=== PATIENT | male | born 1950 | race Caucasian/White ===

== ENCOUNTER 2019-06-19 10:01 | Outpatient (CLI) | payer OTHER, SELFPAY ==
[2019-06-19 10:38] LABS: HCT 45.6 % (40.0-50.0); HGB 15.6 g/dL (13.5-17.5); Mean Corp. HGB Concentration 34.2 g/dL (32.0-36.0); Mean Corpuscular Hemoglobin 31.8 pg (27.0-33.0); Mean Corpuscular Volume 93.1 fL (80-95); Mean Platelet Volume 10.6 fL (8.0-11.0); Platelet Count 226 x1000/uL (130-400); White Blood Cell Count 7.34 k/cumm (4.4-10.8)
[2019-06-19 11:47] LABS: ALT 40 U/L (12-78); AST 22 U/L (15-37); Albumin 3.7 g/dL (3.4-5.0); Alkaline Phosphatase 108 U/L (46-116); Anion Gap 9.4 mmol/L (3-11); BUN 10 mg/dL (7-18); Bilirubin, Total 0.5 mg/dL (0.2-1.0); CO2 26.6 mmol/L (21.0-32.0); CREATININE 0.77 mg/dL (0.70-1.30); Calcium 8.9 mg/dL (8.5-10.1); Calculated LDL 125 mg/dL; Chloride 101 mmol/L (98-107); Cholesterol 201 mg/dL (50-200); Glucose 114 mg/dL (70-100); HDL Cholesterol 66 mg/dL (40-60); Potassium 4.7 mmol/L (3.5-5.1); Sodium 137 mmol/L (136-145); Total Protein 6.6 g/dL (6.4-8.2); Triglyceride 54 mg/dL (30-150)
== END 2019-06-19 10:21 ==
PROVIDERS: PCP Nurse Practitioner; Visit Provider Nurse Practitioner
DX: I10 Essential (primary) hypertension (principal); E78.89 Other lipoprotein metabolism disorders
CPT/HCPCS: 36415; 80053; 80061; 83721; 85027

== ENCOUNTER 2020-11-03 12:22 | Outpatient (REF) | payer OTHER, SELFPAY ==
[2020-11-03 18:19] LABS: HCT 44.3 % (40.0-50.0); HGB 15.1 g/dL (13.5-17.5); MCH 32.3 pg (27.0-33.0); MCHC 34.1 % (32.0-36.0); MCV 94.9 fL (80-95); MPV 10.8 fL (8.0-11.0); Platelet Count 273 10^3/uL (130-400); RBC 4.67 10^6/uL (4.36-5.78); RDW 13.3 % (11.8-14.1); RDW-SD 46.7 fL; WBC 7.75 10^3/uL (4.4-10.8)
[2020-11-03 18:33] LABS: ALT 30 U/L (16-63); AST 16 U/L (15-37); Albumin 3.6 g/dL (3.4-5.0); Alkaline Phosphatase 85 U/L (46-116); Anion Gap 8.5 mmol/L (3-11); BUN 14 mg/dL (7-18); Bilirubin, Total 0.5 mg/dL (0.2-1.0); CO2 25.5 mmol/L (21.0-32.0); CREATININE 0.89 mg/dL (0.70-1.30); Calculated LDL 90 mg/dL (<100); Chloride 97 mmol/L (98-107); Cholesterol 179 mg/dL (<200); Glucose 115 mg/dL (74-106); HDL Cholesterol 80 mg/dL (40-60); Potassium 5.7 mmol/L (3.5-5.1); Sodium 131 mmol/L (136-145); Total Protein 6.5 g/dL (6.4-8.2); Triglyceride 45 mg/dL (<150)
[2020-11-03 18:42] LABS: Hemoglobin A1C 5.3 % (<5.7)
== END 2020-11-03 12:42 ==
LOC: LBN 12:22
PROVIDERS: PCP Nurse Practitioner; Visit Provider Nurse Practitioner
DX: R73.01 Impaired fasting glucose (principal); I10 Essential (primary) hypertension; F17.200 Nicotine dependence, unspecified, uncomplicated
CPT/HCPCS: 80053; 80061; 85027; 83036

== ENCOUNTER 2020-11-06 05:02 | Outpatient (CLI) | payer OTHER, SELFPAY ==
[2020-11-06 14:58] LABS: Sodium, Urine 38 mmol/L
[2020-11-06 15:02] LABS: Anion Gap 7.7 mmol/L (3-11); BUN 21 mg/dL (7-18); CO2 26.3 mmol/L (21.0-32.0); CREATININE 1.18 mg/dL (0.70-1.30); Calcium 9.1 mg/dL (8.5-10.1); Chloride 96 mmol/L (98-107); Glucose 101 mg/dL (74-106); Potassium 4.8 mmol/L (3.5-5.1); Sodium 130 mmol/L (136-145)
[2020-11-06 21:19] LABS: Osmolality, Urine 322 mOsm/kg (150-1,150)
== END 2020-11-06 05:22 ==
PROVIDERS: PCP Nurse Practitioner; Visit Provider Nurse Practitioner
DX: E87.1 Hypo-osmolality and hyponatremia (principal); E87.5 Hyperkalemia
CPT/HCPCS: 36415; 80048; 83935; 84300

== ENCOUNTER 2020-12-08 02:23 | Outpatient (CLI) | payer OTHER, SELFPAY ==
[2020-12-08 12:04] LABS: Anion Gap 8.6 mmol/L (3-11); BUN 17 mg/dL (7-18); CO2 25.4 mmol/L (21.0-32.0); CREATININE 0.94 mg/dL (0.70-1.30); Chloride 93 mmol/L (98-107); Glucose 100 mg/dL (74-106); Potassium 4.9 mmol/L (3.5-5.1); Sodium 127 mmol/L (136-145)
== END 2020-12-08 02:43 ==
PROVIDERS: PCP Nurse Practitioner; Visit Provider Nurse Practitioner
DX: E87.1 Hypo-osmolality and hyponatremia (principal)
CPT/HCPCS: 36415; 80048

== ENCOUNTER 2020-12-11 04:30 | Outpatient (CLI) | payer OTHER, SELFPAY ==
--- NOTE | 2020-12-11 12:40 | DI.RAD_ITS ---
EXAM: XR CHEST 2V PA LATERAL CLINICAL HISTORY: Hyponatremia,SMOKER, E87.1,F17.200. TECHNIQUE: 2D digital imaging was performed. COMPARISON: Chest x-ray earlier same date FINDINGS: Heart size is normal. The mediastinum is not widened. Lungs are clear. No infiltrates nor pleural effusions. IMPRESSION: No acute pulmonary findings. DATA REPOSITORY: RADIATION DOSE DELIVERED:
== END 2020-12-11 04:50 ==
PROVIDERS: PCP Nurse Practitioner; Visit Provider Nurse Practitioner
DX: F17.210 Nicotine dependence, cigarettes, uncomplicated (principal); E87.1 Hypo-osmolality and hyponatremia
CPT/HCPCS: 71046

== ENCOUNTER 2020-12-15 11:56 | Outpatient (REF) | payer OTHER, SELFPAY ==
[2020-12-15 14:38] LABS: Anion Gap 8.9 mmol/L (3-11); BUN 14 mg/dL (7-18); CO2 25.1 mmol/L (21.0-32.0); CREATININE 0.81 mg/dL (0.70-1.30); Calcium 9.1 mg/dL (8.5-10.1); Chloride 100 mmol/L (98-107); Glucose 111 mg/dL (74-106); Potassium 4.6 mmol/L (3.5-5.1); Sodium 134 mmol/L (136-145); TSH (W/Ref FT4) 0.86 uIU/mL (0.36-3.74)
== END 2020-12-15 12:16 ==
LOC: LBO 11:56
PROVIDERS: PCP Nurse Practitioner; Visit Provider Nurse Practitioner
DX: E87.1 Hypo-osmolality and hyponatremia (principal); I10 Essential (primary) hypertension
CPT/HCPCS: 80048; 82533; 84443

== ENCOUNTER 2020-12-30 10:48 | Outpatient (REF) | payer OTHER, SELFPAY ==
[2020-12-30 14:08] LABS: Anion Gap 7.8 mmol/L (3-11); BUN 20 mg/dL (7-18); CO2 24.2 mmol/L (21.0-32.0); CREATININE 0.8 mg/dL (0.70-1.30); Calcium 9.2 mg/dL (8.5-10.1); Chloride 101 mmol/L (98-107); Glucose 118 mg/dL (74-106); Potassium 5.8 mmol/L (3.5-5.1); Sodium 133 mmol/L (136-145)
== END 2020-12-30 10:49 | disposition home or self-care (01) ==
LOC: LBO 10:48
PROVIDERS: PCP Nurse Practitioner; Visit Provider Nurse Practitioner
DX: E87.1 Hypo-osmolality and hyponatremia (principal)
CPT/HCPCS: 80048

== ENCOUNTER 2021-01-04 11:16 | Day surgery (SDC) | payer OTHER, SELFPAY ==
[2021-01-04 11:30] VITALS: BP 153/74; PULSE 98; RESP 16; TEMP 36.6; O2SAT 100
[2021-01-04] MEDS: Tropicam./Phenyleph. (1/2.5%) 5 ML BTL OD ×3 (11:47→12:00)
[2021-01-04] MEDS: Tetracaine 0.5% 4 ML BTL OD (13:33)
[2021-01-04] MEDS: Balanced Salt Soln.-PLUS 500 ML BAG (13:34)
[2021-01-04] MEDS: Lidocaine 1% Pres-Free 5 ML VIAL (13:35)
[2021-01-04] MEDS: Duovisc Viscoelastic System EACH 1 EACH (13:35)
[2021-01-04] MEDS: Lidocaine 2% Jelly 6 ML SYR (13:36)
[2021-01-04] MEDS: Povidone-Iodine Ophth 30 ML BTL (13:38)
[2021-01-04] MEDS: Trypan Blue 0.06% 0.5 ML SYR (13:43)
--- NOTE | 2021-01-04 13:50 | W.PM.DSUDISC ---
Discharge Plan Disposition Patient Disposition: HOME Condition: Good Discharge Details Attending Provider: Fito Pond Primary Care Provider: Haleigh Aguirre Home Meds and New Rx's Prescriptions: No Action eye promis 1 tab PO DAILY RF: 0 acetaminophen 325 mg capsule 325 mg PO ONCE PRNRF: 0 amlodipine 10 mg tablet 10 mg PO DAILY Qty: 90 RF: 3 metoprolol succinate 25 mg tablet extended release 24 hr 25 mg PO DAILY Qty: 90 RF: 0 lisinopril 40 mg tablet 40 mg PO DAILY Qty: 90 RF: 3 Discharge Instructions Stand Alone Forms: Post-op Topical Cataract, Anneliese Mckeon (DSU) Discharge Orders Discharge Orders: Discharge Order (Routine); Ordered 01/04/21 Ordered By: Fito Pond DS: Diagnosis Discharge Diagnosis (1) Nuclear sclerotic cataract of right eye: Status: Resolved (2) Posterior subcapsular age-related cataract, right eye: Status: Resolved
--- NOTE | 2021-01-04 13:51 | ROE_ITS ---
Date of service: 01/04/21 Time of Service: 13:51 Operative Note Operative Note DATE OF PROCEDURE: 01/04/21 PRE-OP DIAGNOSIS: Dense nuclear/posterior subcapsular cataract, right eye Poorly dilating pupil, right eye Poor red reflex, right eye POST-OP DIAGNOSIS: same PROCEDURE: Cataract extraction using phacoemulsification with intraocular lens implant, right eye, with pupillary dilation using Malyugin Ring and capsular staining using Vision Blue SURGEON: Fito Pond ANESTHESIA: MAC (with sub-tenon's local infiltration) ESTIMATED BLOOD LOSS: 0 PATHOLOGY: none sent COMPLICATIONS: None Patient was transported to: same day Patient's condition: stable Implants: Darryl and Darryl / [employer] Tecnis [id number] Indications: Progressive decreased vision due to cataract, right eye Procedure Description: CATARACT SURGERY OPERATIVE REPORT PREOPERATIVE DIAGNOSIS: 1. Dense nuclear/posterior subcapsular cataract, right eye 2. Poorly dilating pupil, right eye 3. Poor red reflex, right eye POSTOPERATIVE DIAGNOSIS: Same OPERATION: 1. Cataract extraction using phacoemulsification with posterior chamber intraocular lens implant, right eye. 2. Pupillary dilation and iris stabilization using Malyugin Ring 3. Capsular staining with VIsion Blue IOL: IOL Purchasing Clerk/Model: Darryl & Darryl / MARTIR Tecnis [id number] IOL Power: + 19.0 diopters IOL Serial Number: [id number] Optic Diameter: 6.0mm Haptic/Overall Diameter: 13.0mm PHACO INFO: Tom [employer] Vision System with OZil and Active [employer]uidics Cumulative Dispersed Energy (CDE): 18.98 seconds SURGEON: Fito Pond MD, ODILIA ANESTHESIA: Monitored Anesthesia Care (MAC), with local sub-tenon's anesthetic infiltration COMPLICATIONS: None SPECIMENS: None INDICATIONS FOR PROCEDURE: The patient is a 70-year-old gentleman with history of diminished visual acuity in his right eye secondary to the development of significant nuclear and posterior subcapsular cataract. He significantly symptomatic that he desires cataract surgery and attempt to improve and maximize his vision. PROCEDURE: The correct surgical eye was identified and marked as the right eye and the pupil was dilated in the preoperative area using mydriatics and cycloplegics. The dilated pupil size was 4.5 mm. Oral sedation was administered in the form of an Imprimis MKO Melt (midazolam 3mg/ketamine 25mg/ondansetron 2mg). The patient was brought to the operating room where cardiopulmonary monitoring was instituted and surgical time-out was performed, confirming the correct operative eye and IOL power. Topical anesthesia was administered and ophthalmic povidone-iodine 5% was i nstilled into the conjunctival fornices. Lidocaine gel was applied to the cornea and the kimani-ocular area was prepped with Betadine 10% solution and draped in the usual sterile fashion for intraocular surgery, including an aperture drape. A Tegaderm transparent film dressing was cut in half and used to cover the lashes and lid margins. Care was taken to sequester the lashes and lid margins under the Tegaderm dressing. A lid speculum was placed between the lids of the operative eye and the Adán-Ricardo operating microscope was maneuvered into position. Nadeem scissors were then used to make a conjunctival buttonhole approximately 6mm posterior to the limbus in the inferonasal quadrant. Blunt dissection was carried out to expose bare sclera, and a blunt-tipped sub-tenon?s anesthesia c annula was introduced and passed posteriorly along the globe where non-preserved plain lidocaine was injected into posterior sub-Tenon?s space. A sideport knife was used to make a paracentesis port inferiortemporally. Intraocular phenylephrine/lidocaine was injected into the anterior chamber. Air was then injected into anterior chamber, followed by Vision Blue, which was painted over the anterior capsule and then irrigated out with BSS. The anterior chamber was then filled with viscoelastic. A 2.4mm keratome knife was used to create a half-thickness groove at the limbus and then to construct a three-plane near- clear corneal tunnel extending 2.0mm into clear cornea superiortemporally. A 7.0 mm Malyugin Ring was then inserted into the pupillary space and engaged with the Kuglen hook. A flap was raised on the anterior capsule and capsulorhexis forceps were used to complete a continuous curvilinear capsulorhexis of 5.5 mm. Balanced salt solution was then used to perform cortical cleaving hydrodissection and nuclear hydrodelineation until the lens could be freely rotated within the capsular bag. The lens nucleus was then disassembled and removed within the capsular bag and iris plane using phacoemulsification. Residual cortical material was removed using the 45-degree angled silicone I/A tip with 0.3mm port. The posterior capsule was carefully polished to remove as much residual lens epithelial cells as safely possible. The capsular bag was then inflated and the anterior chamber deepened with viscoelastic. The lens implant described above was inserted into the capsular bag using the [employer] Deaver Injector. A Kuglen hook was used to dial the IOL into position. The Malyugin Ring was removed in the reverse order of its insertion. Residual viscoelastic was then removed first from posterior to the IOL, then from the anterior chamber using the I/A handpiece. The lens implant was noted to center nicely within the capsular bag. The incisions were stromally hydrated, and the anterior chamber was reformed using BSS. Then 0.5cc of moxifloxacin 1.0mg/ml were injected into the capsular bag and anterior chamber. The incisions were checked with a Weck spear and found to be secure. Several drops of ophthalmic povidone-iodine 5% were then applied to the eye followed by two drops of Imprimis combination prednisoone/moxifloxacin/nepafenac solution. The drapes were removed and a clear plastic protective eye shield was placed over the eye. The patient was then returned to [facility] in stable condition.
[2021-01-04 14:17] VITALS: BP 135/73; PULSE 76; RESP 20; TEMP 36.6; O2SAT 98
== END 2021-01-04 14:20 | disposition home or self-care (01) ==
PROVIDERS: PCP Nurse Practitioner; Visit Provider Ophthalmology
PROC: (CPT 66982; principal; 2021-01-04 14:30)
DX: H25.11 Age-related nuclear cataract, right eye (principal); H25.041 Posterior subcapsular polar age-related cataract, right eye; H57.09 Other anomalies of pupillary function; H35.89 Other specified retinal disorders
CPT/HCPCS: 66982; V2632

== ENCOUNTER 2021-01-15 02:52 | Outpatient (CLI) | payer OTHER, SELFPAY ==
[2021-01-15 12:57] LABS: Potassium 5.7 mmol/L (3.5-5.1)
== END 2021-01-15 02:53 | disposition home or self-care (01) ==
LOC: LBO 02:52
PROVIDERS: PCP Nurse Practitioner; Visit Provider Nurse Practitioner
DX: E87.5 Hyperkalemia (principal)
CPT/HCPCS: 36415; 84132

== ENCOUNTER 2021-01-20 21:48 | Outpatient (REF) | payer OTHER, SELFPAY ==
[2021-01-20 16:12] LABS: Anion Gap 8.4 mmol/L (3-11); BUN 22 mg/dL (7-18); CO2 22.6 mmol/L (21.0-32.0); CREATININE 0.9 mg/dL (0.70-1.30); Chloride 97 mmol/L (98-107); Glucose 104 mg/dL (74-106); Potassium 5.3 mmol/L (3.5-5.1); Sodium 128 mmol/L (136-145)
[2021-01-20 21:59] LABS: PSA, Screening 6.6 ng/mL (0.0-4.5)
== END 2021-01-20 21:49 | disposition home or self-care (01) ==
LOC: NCHCN 21:48
PROVIDERS: PCP Nurse Practitioner; Visit Provider Nurse Practitioner
DX: E87.1 Hypo-osmolality and hyponatremia (principal); E87.5 Hyperkalemia; R79.9 Abnormal finding of blood chemistry, unspecified; Z12.5 Encounter for screening for malignant neoplasm of prostate
CPT/HCPCS: 80048; 84153

== ENCOUNTER 2021-04-20 11:48 | Outpatient (REF) | payer OTHER, SELFPAY ==
[2021-04-20 16:08] LABS: Hemoglobin A1C 5.2 % (<5.7)
[2021-04-20 16:12] LABS: ALT 33 U/L (16-63); AST 20 U/L (15-37); Albumin 3.7 g/dL (3.4-5.0); Alkaline Phosphatase 89 U/L (46-116); Anion Gap 9.8 mmol/L (3-11); BUN 13 mg/dL (7-18); Bilirubin, Total 0.4 mg/dL (0.2-1.0); CO2 26.2 mmol/L (21.0-32.0); CREATININE 0.8 mg/dL (0.70-1.30); Chloride 102 mmol/L (98-107); Glucose 107 mg/dL (74-106); Potassium 5.2 mmol/L (3.5-5.1); Sodium 138 mmol/L (136-145); Total Protein 6.7 g/dL (6.4-8.2)
[2021-04-21 18:10] LABS: Free PSA/PSA Ratio 0.12 ratio
== END 2021-04-20 11:49 | disposition home or self-care (01) ==
LOC: LBN 11:48
PROVIDERS: PCP Nurse Practitioner; Visit Provider Nurse Practitioner
DX: I10 Essential (primary) hypertension (principal); E87.5 Hyperkalemia; E87.1 Hypo-osmolality and hyponatremia; R79.89 Other specified abnormal findings of blood chemistry; R97.20 Elevated prostate specific antigen [PSA]
CPT/HCPCS: 80053; 83036; 84154

== ENCOUNTER → 2021-12-08 01:01 | Outpatient (CLI) | payer MEDICARE, SELFPAY ==
--- NOTE | 2021-12-08 13:15 | DI.CTLCSR_ITS ---
Exam(s) CT CHEST LUNG CANCER SCREEN EXAM: CT CHEST LUNG CANCER SCREEN CLINICAL HISTORY: Screening for lung cancer,CURRENT SMOKER, F17.210,Z12.2. TECHNIQUE: Imaging Protocol: Low Dose Technique CONTRAST MATERIAL: None COMPARISON: No exams were available for comparison FINDINGS: CHEST: LUNGS: In the medial aspect of the superior segment of the right lower lobe there is a spiculated nod ule measuring approximately 1.6 x 1.3 by 0.7 cm, this being a suspicious finding. There are no other suspicious focal pulmonary nodules in either lung field and there are no pleural e ffusions. Some platelike atelectasis is noted in the posterior basal segment of the right lower lobe .. Such that MEDIASTINUM: Slight prominence of the right hilum may indicate small lymph nodes but difficult to ass ess without IV contrast. No obvious adenopathy evident in the opposite-left hilum. No obvious adeno fatuma in the subcarinal region nor in the anterior mediastinal fat. No axillary adenopathy CARDIAC: Heart size is normal. There is slight thickening of the pericardium indicative of a small p ericardial effusion. Coronary artery calcifications noted.Caliber of the thoracic aorta is within no rmal limits. OTHER: No obvious adrenal masses. OSSEOUS: No significant osseous lesions.. IMPRESSION: 1. There is a 16 x 13 x 7 millimeter spiculated nodule in the right lung in what appears to be the mosqueda perior segment of the right lower lobe. Suspicious for possible malignancy. 2. Possible small lymph nodes in the ipsilateral right hilum, difficult to be certain without IV cont rast. There are no pleural effusions. 3. Lung RADS Cat 4B - Suspicious: Findings for which additional diagnostic testing and/or [facility] is recommended Lung-RADS 1.0 CATEGORIES: Category 0 - Prior chest CT exam(s) being located for comparison. Category 1 - Annual screening in 12 months. No nodules or definitely benign nodules. Category 2 - Annual screening in 12 months. Benign appearance. Nodules with low likelihood of becomin g active cancer. Category 3 - 6-month follow-up. Probably benign. Short-term follow-up suggested. Nodules with low lik elihood of becoming active cancer. Category 4A - 3-month follow-up and CT/PET if >8 mm in size. Suspicious finding. Findings which requi re additional testing. Category 4B - Findings which require additional testing and tissue sampling. Category 4X - Category 3 or 4 nodules with additional features or imaging findings that increases the suspicion of malignancy. Modifier S- Potentially clinically significant findings (non lung cancer) RADIATION DOSE DELIVERED: 76.56mGy.cm Total DLP 1.84mGy CTDIvol DATA REPOSITORY: All CT scans at this facility are submitted to the National Radiology Data Registry (NRDR) Dose Index Registry (DIR) with the [employer] (ACR). RADIATION OPTIMIZATION: All CT scans at this facility use at least one of these dose optimization te chniques: automated exposure control; mA and/or kV adjustment per patient size (includes targeted exa ms where dose is matched to clinical indication); or iterative reconstruction.
== END ==
PROVIDERS: PCP Nurse Practitioner; Visit Provider Nurse Practitioner
DX: F17.210 Nicotine dependence, cigarettes, uncomplicated (principal); Z12.2 Encounter for screening for malignant neoplasm of respiratory organs; R91.1 Solitary pulmonary nodule
CPT/HCPCS: 71271

== ENCOUNTER 2022-02-01 04:39 | Outpatient (CLI) | payer MEDICARE, SELFPAY ==
[2022-02-01] MEDS: Albuterol HFA 18 GM 200 PUFF INH IH (10:59)
[2022-02-01] MEDS: Inhaler, Assist Device 1 EACH MC (11:00)
== END 2022-02-01 04:40 | disposition home or self-care (01) ==
LOC: RT 04:39
PROVIDERS: PCP Nurse Practitioner; Visit Provider Student in an Organized Health Care Education/Training Program
DX: R91.1 Solitary pulmonary nodule (principal); F17.210 Nicotine dependence, cigarettes, uncomplicated; R94.2 Abnormal results of pulmonary function studies
CPT/HCPCS: 94060; 94726; 94729

== ENCOUNTER 2022-03-07 02:43 | Outpatient (CLI) | payer MEDICARE, SELFPAY ==
[2022-03-07 10:12] LABS: Absolute Basophil Count 0.01 10^3/uL (0.0-0.2); Absolute Eosinophil Count 0.11 10^3/uL (0.0-0.7); Absolute Lymphocyte Count 1.17 10^3/uL (1.2-3.4); Absolute Monocyte Count 0.42 10^3/uL (0.1-0.8); Absolute Neutrophil Count 1.31 10^3/uL (1.2-6.7); Basophils % 0.3; Eosinophils % 3.6; HGB 11.6 g/dL (13.5-17.5); Lymphocytes % 38.7; MCH 31.6 pg (27.0-33.0); MCHC 33.1 % (32.0-36.0); MCV 95.4 fL (80-95); MPV 9.4 fL (8.0-11.0); Monocytes % 13.9; Neutrophils % 43.5; Nucleated RBC 0 %; Platelet Count 145 10^3/uL (130-400); RBC 3.67 10^6/uL (4.36-5.78); RDW-SD 45.1 fL; WBC 3.02 10^3/uL (4.4-10.8)
[2022-03-07 10:24] LABS: ALT 38 U/L (16-63); AST 19 U/L (15-37); Albumin 3.1 g/dL (3.4-5.0); Alkaline Phosphatase 103 U/L (46-116); Anion Gap 9.7 mmol/L (3-11); BUN 19 mg/dL (7-18); Bilirubin, Total 0.2 mg/dL (0.2-1.0); CO2 24.3 mmol/L (21.0-32.0); CREATININE 0.8 mg/dL (0.70-1.30); Calculated LDL 82 mg/dL (<100); Chloride 103 mmol/L (98-107); Cholesterol 160 mg/dL (<200); Glucose 95 mg/dL (74-106); HDL Cholesterol 66 mg/dL (40-60); Potassium 4.4 mmol/L (3.5-5.1); Sodium 137 mmol/L (136-145); Total Protein 6.6 g/dL (6.4-8.2); Triglyceride 60 mg/dL (<150)
[2022-03-07 10:32] LABS: FREE T4 1.16 ng/dL (0.76-1.46); Magnesium 2.3 mg/dL (1.8-2.4); TSH 1.35 uIU/mL (0.36-3.74)
[2022-03-07 19:53] LABS: PSA, Screening 8.4 ng/mL (<=6.5)
== END 2022-03-07 02:44 | disposition home or self-care (01) ==
LOC: LBO 02:43
PROVIDERS: PCP Nurse Practitioner; Visit Provider Internal Medicine Medical Oncology
DX: I10 Essential (primary) hypertension (principal); R97.20 Elevated prostate specific antigen [PSA]; C79.51 Secondary malignant neoplasm of bone; C34.31 Malignant neoplasm of lower lobe, right bronchus or lung; Z79.899 Other long term (current) drug therapy; Z12.5 Encounter for screening for malignant neoplasm of prostate
CPT/HCPCS: 36415; 80053; 80061; 84153; 83735; 84439; 84443; 85025

== ENCOUNTER 2022-03-14 02:55 | Outpatient (CLI) | payer MEDICARE, SELFPAY ==
[2022-03-14 11:09] LABS: Abs Immature Grans 0.03 10^3/uL (0.0-0.06); Absolute Basophil Count 0.04 10^3/uL (0.0-0.2); Absolute Eosinophil Count 0.09 10^3/uL (0.0-0.7); Absolute Lymphocyte Count 1.65 10^3/uL (1.2-3.4); Absolute Monocyte Count 0.78 10^3/uL (0.1-0.8); Absolute Neutrophil Count 2.55 10^3/uL (1.2-6.7); Basophils % 0.8; Eosinophils % 1.8; HGB 11.9 g/dL (13.5-17.5); Immature Grans % 0.6; Lymphocytes % 32.1; MCH 31.3 pg (27.0-33.0); MCHC 33.1 % (32.0-36.0); MCV 94.7 fL (80-95); MPV 9.1 fL (8.0-11.0); Monocytes % 15.2; Neutrophils % 49.5; RDW 13.7 % (11.8-14.1); WBC 5.14 10^3/uL (4.4-10.8)
[2022-03-14 11:12] LABS: Platelet Count 452 10^3/uL (130-400)
[2022-03-14 11:39] LABS: ALT 30 U/L (16-63); AST 17 U/L (15-37); Albumin 3.2 g/dL (3.4-5.0); Alkaline Phosphatase 113 U/L (46-116); Anion Gap 7.6 mmol/L (3-11); BUN 13 mg/dL (7-18); Bilirubin, Total 0.2 mg/dL (0.2-1.0); CO2 24.4 mmol/L (21.0-32.0); CREATININE 0.8 mg/dL (0.70-1.30); Calcium 8.6 mg/dL (8.5-10.1); Chloride 102 mmol/L (98-107); Glucose 103 mg/dL (74-106); Potassium 4.6 mmol/L (3.5-5.1); Sodium 134 mmol/L (136-145); TSH 1.37 uIU/mL (0.36-3.74); Total Protein 6.8 g/dL (6.4-8.2)
[2022-03-14 12:00] LABS: FREE T4 1.05 ng/dL (0.76-1.46)
== END 2022-03-14 02:56 | disposition home or self-care (01) ==
LOC: LBO 02:55
PROVIDERS: PCP Nurse Practitioner; Visit Provider Internal Medicine Medical Oncology
DX: C79.51 Secondary malignant neoplasm of bone (principal); C34.31 Malignant neoplasm of lower lobe, right bronchus or lung; Z79.899 Other long term (current) drug therapy
CPT/HCPCS: 36415; 80053; 83735; 84439; 84443; 85025

== ENCOUNTER → 2022-03-30 00:24 | Outpatient (CLI) | payer MEDICARE, SELFPAY ==
--- NOTE | 2022-03-30 | DI.CT_ITS ---
Exam(s) CT CHEST W EXAM: CT CHEST W CLINICAL HISTORY: RT LUNG CA,C34.31,SECONDARY NEOPLASM OF BONE,C79.51,RESTAGING,? PROGRESSION TECHNIQUE: Imaging Protocol: Axial computed tomography images with coronal and sagittal reformatted images were created and reviewed CONTRAST MATERIAL: Intravenous: Omnipaque 350 Contrast volume:70 ml. COMPARISON: CR XR CHEST 2V PA LATERAL from 12/11/[address] CHEST LUNG CANCER SCREEN from 12/08/2021 FINDINGS: Tracheobronchial tree: No bronchiectasis or mucous plugging. Mediastinum and Monika: No dominant adenopathy or fluid collection. Pulmonary parenchyma: Significant decrease in size of previously noted mass in the medial superior se gment of the right lower lobe,, near the major fissure. It now measures 7 x 4 by 4 millimeters. No ne w pulmonary nodules. No infiltrate or consolidation. moderate emphysematous changes. Pleura: No effusion or pneumothorax. Heart: The heart is mildly dilated. Moderate to severe coronary artery calcifications are seen. Aorta: Thoracic aorta non-dilated. Atherosclerotic changes with mild mural thrombus. Upper abdomen: Atherosclerotic changes of abdominal aorta with some mural thrombus. Lymph nodes: Within normal limits. Bones: No lytic or blastic lesions identified. Soft tissues: Unremarkable. IMPRESSION: Decrease in size previously noted mass in the superior segment of the right lower lobe. No new nodule s, adenopathy or metastatic disease. RADIATION DOSE DELIVERED: 410.26mGy.cm Total DLP DATA REPOSITORY: All CT scans at this facility are submitted to the National Radiology Data Registry (NRDR) Dose Index Registry (DIR) with the [employer] (ACR). RADIATION OPTIMIZATION: All CT scans at this facility use at least one of these dose optimization te chniques: automated exposure control; mA and/or kV adjustment per patient size (includes targeted exa ms where dose is matched to clinical indication); or iterative reconstruction.
[2022-03-30] MEDS: Normal Saline Flush 10 ML SYR IVP (08:32)
[2022-03-30] MEDS: Omnipaque 350 MG/ML 100 ML BTL IJ (08:34)
== END ==
PROVIDERS: PCP Nurse Practitioner; Visit Provider Internal Medicine Medical Oncology
DX: C34.31 Malignant neoplasm of lower lobe, right bronchus or lung (principal); C79.51 Secondary malignant neoplasm of bone
CPT/HCPCS: 71260; J3490

== ENCOUNTER 2022-04-04 01:43 | Outpatient (CLI) | payer MEDICARE, SELFPAY ==
[2022-04-04 07:41] LABS: Abs Immature Grans 0.02 10^3/uL (0.0-0.06); Absolute Basophil Count 0.04 10^3/uL (0.0-0.2); Absolute Eosinophil Count 0.17 10^3/uL (0.0-0.7); Absolute Lymphocyte Count 1.62 10^3/uL (1.2-3.4); Absolute Monocyte Count 0.83 10^3/uL (0.1-0.8); Absolute Neutrophil Count 1.63 10^3/uL (1.2-6.7); Basophils % 0.9; Eosinophils % 3.9; HCT 32.4 % (40.0-50.0); Immature Grans % 0.5; Lymphocytes % 37.6; MCV 94 fL (80-95); MPV 9.6 fL (8.0-11.0); Monocytes % 19.3; Neutrophils % 37.8; Platelet Count 290 10^3/uL (130-400); RBC 3.44 10^6/uL (4.36-5.78); RDW 14.3 % (11.8-14.1); RDW-SD 47.7 fL; WBC 4.31 10^3/uL (4.4-10.8)
[2022-04-04 08:06] LABS: ALT 35 U/L (16-63); AST 23 U/L (15-37); Albumin 3.3 g/dL (3.4-5.0); Alkaline Phosphatase 98 U/L (46-116); Anion Gap 7.1 mmol/L (3-11); BUN 12 mg/dL (7-18); Bilirubin, Total 0.1 mg/dL (0.2-1.0); CO2 24.9 mmol/L (21.0-32.0); CREATININE 0.8 mg/dL (0.70-1.30); Calcium 8.1 mg/dL (8.5-10.1); Chloride 99 mmol/L (98-107); FREE T4 0.88 ng/dL (0.76-1.46); Glucose 106 mg/dL (74-106); Magnesium 2.3 mg/dL (1.8-2.4); Potassium 5.1 mmol/L (3.5-5.1); Sodium 131 mmol/L (136-145); TSH 2.63 uIU/mL (0.36-3.74); Total Protein 6.7 g/dL (6.4-8.2)
== END 2022-04-04 01:44 | disposition home or self-care (01) ==
LOC: LBO 01:43
PROVIDERS: PCP Nurse Practitioner; Visit Provider Internal Medicine Medical Oncology
DX: C34.31 Malignant neoplasm of lower lobe, right bronchus or lung (principal); C79.51 Secondary malignant neoplasm of bone; Z79.899 Other long term (current) drug therapy
CPT/HCPCS: 36415; 80053; 83735; 84439; 84443; 85025

== ENCOUNTER 2022-05-02 03:40 | Outpatient (CLI) | payer MEDICARE, SELFPAY ==
[2022-05-02 07:42] LABS: Abs Immature Grans 0.06 10^3/uL (0.0-0.06); Absolute Basophil Count 0.11 10^3/uL (0.0-0.2); Absolute Eosinophil Count 0.11 10^3/uL (0.0-0.7); Absolute Lymphocyte Count 2.21 10^3/uL (1.2-3.4); Absolute Monocyte Count 1.45 10^3/uL (0.1-0.8); Absolute Neutrophil Count 5.96 10^3/uL (1.2-6.7); Basophils % 1.1; Eosinophils % 1.1; HCT 25.4 % (40.0-50.0); HGB 8.4 g/dL (13.5-17.5); Immature Grans % 0.6; Lymphocytes % 22.3; MCH 31.8 pg (27.0-33.0); MCHC 33.1 % (32.0-36.0); MCV 96 fL (80-95); MPV 9.2 fL (8.0-11.0); Monocytes % 14.6; Neutrophils % 60.3; Platelet Count 468 10^3/uL (130-400); RBC 2.64 10^6/uL (4.36-5.78); RDW 17.5 % (11.8-14.1)
[2022-05-02 08:05] LABS: ALT 41 U/L (16-63); AST 27 U/L (15-37); Albumin 2.7 g/dL (3.4-5.0); Alkaline Phosphatase 85 U/L (46-116); Anion Gap 7.2 mmol/L (3-11); BUN 19 mg/dL (7-18); Bilirubin, Total 0.2 mg/dL (0.2-1.0); CO2 24.8 mmol/L (21.0-32.0); CREATININE 1.2 mg/dL (0.70-1.30); Calcium 9.3 mg/dL (8.5-10.1); Chloride 100 mmol/L (98-107); Estimated GFR 59.86 (mL/min/1.73m2); FREE T4 1.31 ng/dL (0.76-1.46); Glucose 108 mg/dL (74-106); Magnesium 1.7 mg/dL (1.8-2.4); Potassium 4.7 mmol/L (3.5-5.1); Sodium 132 mmol/L (136-145); TSH 1.04 uIU/mL (0.36-3.74)
[2022-05-02 10:56] LABS: Ferritin 995 ng/mL (26-388)
== END 2022-05-02 03:41 | disposition home or self-care (01) ==
PROVIDERS: PCP Nurse Practitioner; Visit Provider Internal Medicine Medical Oncology
DX: C34.31 Malignant neoplasm of lower lobe, right bronchus or lung (principal); D64.81 Anemia due to antineoplastic chemotherapy; T45.1X5A Adverse effect of antineoplastic and immunosuppressive drugs, initial encounter; Z79.899 Other long term (current) drug therapy; C79.51 Secondary malignant neoplasm of bone
CPT/HCPCS: 36415; 80053; 85027; 82728; 83735; 84439; 84443; 85025

== ENCOUNTER → 2022-05-12 02:23 | Outpatient (CLI) | payer MEDICARE, SELFPAY ==
--- NOTE | 2022-05-12 10:09 | DI.CT_ITS ---
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 TECHNIQUE: Multi planar reconstructions were performed. CONTRAST MATERIAL: None COMPARISON: CR XR CHEST 2V PA LATERAL from 12/11/[address] CHEST LUNG CANCER SCREEN from 12/08/[address] CHEST W from 03/30/2022 FINDINGS: CHEST: LUNGS: COPD emphysematous changes again noted. There are slightly increasing markings in the posteri or basal segment of the right lower lobe. In the superior segment of the right lower lobe the nodula r infiltrate appears unchanged from 03/30/2022 and this spiculated nodule again remains significantly smaller than on the 12/08/2021 study. In the opposite-left lung a small 3 millimeter nodule in the lateral basal segment of the left lower lobe remains unchanged. It is also unchanged from CT scan of 12/08/2021. Small density in the lingu lar segment of the left lung is also unchanged. There are no pleural effusions on either side MEDIASTINUM: There is no obvious hilar nor mediastinal adenopathy. Visualized thyroid unremarkable.No obvious axillary adenopathy CARDIAC: Heart size is normal. There is a small pericardial effusion, slightly larger than previous. . Coronary artery calcification again noted.Caliber of the thoracic aorta is within normal limits. VISUALIZED UPPER ABDOMEN:No new significant findings. OSSEOUS: No significant osseous lesions.No fractures.. IMPRESSION: 1. The small spiculated nodular infiltrate in the superior segment of the right lower lobe is unchang ed from 03/30/2022, smaller than on the 12/08/2021 study. Stable benign-appearing left lung findings . Mild increased markings in the right lower lobe posterior basal segment. 2. There are no pleural effusions nor intrathoracic adenopathy. 3. Small pericardial effusion noted. RADIATION DOSE DELIVERED: 331.15mGy.cm Total DLP DATA REPOSITORY: All CT scans at this facility are submitted to the National Radiology Data Registry (NRDR) Dose Index Registry (DIR) with the [employer] (ACR). RADIATION OPTIMIZATION: All CT scans at this facility use at least one of these dose optimization te chniques: automated exposure control; mA and/or kV adjustment per patient size (includes targeted exa ms where dose is matched to clinical indication); or iterative reconstruction.
== END ==
PROVIDERS: PCP Nurse Practitioner; Visit Provider Nurse Practitioner Adult Health
DX: C34.31 Malignant neoplasm of lower lobe, right bronchus or lung (principal); R91.8 Other nonspecific abnormal finding of lung field; I31.3 Pericardial effusion (noninflammatory)
CPT/HCPCS: 71250

== ENCOUNTER 2022-05-23 03:28 | Outpatient (CLI) | payer MEDICARE, SELFPAY ==
[2022-05-23 07:35] LABS: HCT 22.3 % (40.0-50.0); HGB 7.3 g/dL (13.5-17.5); MCH 33.5 pg (27.0-33.0); MCHC 32.7 % (32.0-36.0); MCV 102 fL (80-95); MPV 9.8 fL (8.0-11.0); Platelet Count 254 10^3/uL (130-400); RBC 2.18 10^6/uL (4.36-5.78); RDW 20.1 % (11.8-14.1); RDW-SD 71.4 fL; WBC 4.53 10^3/uL (4.4-10.8)
[2022-05-23 07:52] LABS: Absolute Eosinophil Count 0.09 10^3/uL (0.0-0.7); Absolute Lymphocyte Count 2.13 10^3/uL (1.2-3.4); Absolute Monocyte Count 0.63 10^3/uL (0.1-0.8); Absolute Neutrophil Count 1.68 10^3/uL (1.2-6.7); Anisocytosis 2+; Atypical Lymphocytes % 1; Bands % 1; Diff Comment Manual Differential
[2022-05-23 08:01] LABS: ALT 23 U/L (16-63); AST 17 U/L (15-37); Albumin 3.1 g/dL (3.4-5.0); Alkaline Phosphatase 82 U/L (46-116); Anion Gap 7.4 mmol/L (3-11); BUN 22 mg/dL (7-18); Bilirubin, Total 0.2 mg/dL (0.2-1.0); CO2 23.6 mmol/L (21.0-32.0); CREATININE 1.4 mg/dL (0.70-1.30); Calcium 8.2 mg/dL (8.5-10.1); Chloride 104 mmol/L (98-107); FREE T4 0.97 ng/dL (0.76-1.46); Glucose 107 mg/dL (74-106); Magnesium 2.5 mg/dL (1.8-2.4); Potassium 5.3 mmol/L (3.5-5.1); Sodium 135 mmol/L (136-145); TSH 1.54 uIU/mL (0.36-3.74); Total Protein 6.6 g/dL (6.4-8.2)
== END 2022-05-23 03:29 | disposition home or self-care (01) ==
LOC: LBO 03:28
PROVIDERS: PCP Nurse Practitioner; Visit Provider Internal Medicine Medical Oncology
DX: C79.51 Secondary malignant neoplasm of bone (principal); C34.31 Malignant neoplasm of lower lobe, right bronchus or lung; Z79.899 Other long term (current) drug therapy
CPT/HCPCS: 36415; 80053; 83735; 84439; 84443; 85025

== ENCOUNTER 2022-05-31 03:11 | Outpatient (CLI) | payer MEDICARE, SELFPAY ==
[2022-05-31 10:38] LABS: MCHC 33.3 % (32.0-36.0); MCV 102 fL (80-95); Platelet Count 177 10^3/uL (130-400); RBC 1.97 10^6/uL (4.36-5.78); RDW 19.1 % (11.8-14.1); RDW-SD 70.2 fL
[2022-05-31 10:44] LABS: HCT 20.1 % (40.0-50.0); HGB 6.7 g/dL (13.5-17.5); WBC 1.85 10^3/uL (4.4-10.8)
[2022-05-31 11:02] LABS: ALT 25 U/L (16-63); AST 18 U/L (15-37); Albumin 2.9 g/dL (3.4-5.0); Alkaline Phosphatase 77 U/L (46-116); Anion Gap 8.2 mmol/L (3-11); BUN 24 mg/dL (7-18); Bilirubin, Total 0.3 mg/dL (0.2-1.0); CO2 21.8 mmol/L (21.0-32.0); CREATININE 1.2 mg/dL (0.70-1.30); Calcium 8.6 mg/dL (8.5-10.1); Chloride 101 mmol/L (98-107); Estimated GFR 59.86 (mL/min/1.73m2); Glucose 99 mg/dL (74-106); Magnesium 1.8 mg/dL (1.8-2.4); Potassium 5.2 mmol/L (3.5-5.1); Sodium 131 mmol/L (136-145); TSH 1.52 uIU/mL (0.36-3.74); Total Protein 6.4 g/dL (6.4-8.2)
[2022-05-31 11:06] LABS: Anisocytosis 2+; Diff Comment Manual Differential; Macrocytosis 1+; Polychromasia Present
[2022-05-31 11:07] LABS: Absolute Lymphocyte Count 1.39 10^3/uL (1.2-3.4); Absolute Monocyte Count 0.06 10^3/uL (0.1-0.8)
[2022-05-31 11:10] LABS: Absolute Neutrophil Count 0.41 10^3/uL (1.2-6.7)
== END 2022-05-31 03:12 | disposition home or self-care (01) ==
LOC: LBO 03:11
PROVIDERS: PCP Nurse Practitioner; Visit Provider Internal Medicine Medical Oncology
DX: C79.51 Secondary malignant neoplasm of bone (principal); C34.31 Malignant neoplasm of lower lobe, right bronchus or lung; Z79.899 Other long term (current) drug therapy
CPT/HCPCS: 36415; 80053; 83735; 84439; 84443; 85025

== ENCOUNTER 2022-06-01 02:30 | Outpatient (RCR) | payer MEDICARE, SELFPAY ==
[2022-06-01] VITALS (10 sets, daily range): BP systolic 128–151; BP diastolic 60–68; PULSE 77–94; RESP 16–18; TEMP 36.3–36.6; O2SAT 98–100
== END 2022-06-26 23:59 | disposition home or self-care (01) ==
LOC: INF 02:30
PROVIDERS: PCP Nurse Practitioner; Visit Provider Internal Medicine Medical Oncology
DX: C34.90 Malignant neoplasm of unspecified part of unspecified bronchus or lung (principal)
CPT/HCPCS: 36415; 36430; 86850; 86900; 86901; 86920; P9016

== ENCOUNTER 2022-06-13 02:02 | Outpatient (CLI) | payer MEDICARE, SELFPAY ==
[2022-06-13 07:43] LABS: Abs Immature Grans 0.07 10^3/uL (0.0-0.06); Absolute Basophil Count 0.05 10^3/uL (0.0-0.2); Absolute Lymphocyte Count 2.05 10^3/uL (1.2-3.4); Absolute Monocyte Count 1.07 10^3/uL (0.1-0.8); Absolute Neutrophil Count 4.55 10^3/uL (1.2-6.7); Basophils % 0.6; HCT 29.9 % (40.0-50.0); HGB 9.8 g/dL (13.5-17.5); Immature Grans % 0.8; Lymphocytes % 24.7; MCH 32.6 pg (27.0-33.0); MCHC 32.8 % (32.0-36.0); MCV 99 fL (80-95); MPV 9.8 fL (8.0-11.0); Monocytes % 12.9; Platelet Count 329 10^3/uL (130-400); RBC 3.01 10^6/uL (4.36-5.78); RDW 19.4 % (11.8-14.1); RDW-SD 71.1 fL; WBC 8.29 10^3/uL (4.4-10.8)
[2022-06-13 08:13] LABS: ALT 26 U/L (16-63); AST 21 U/L (15-37); Alkaline Phosphatase 86 U/L (46-116); Anion Gap 6.3 mmol/L (3-11); BUN 21 mg/dL (7-18); Bilirubin, Total 0.2 mg/dL (0.2-1.0); CO2 24.7 mmol/L (21.0-32.0); CREATININE 1.2 mg/dL (0.70-1.30); Calcium 8.7 mg/dL (8.5-10.1); Chloride 104 mmol/L (98-107); Estimated GFR 59.86 (mL/min/1.73m2); FREE T4 0.93 ng/dL (0.76-1.46); Glucose 112 mg/dL (74-106); Potassium 5.1 mmol/L (3.5-5.1); Sodium 135 mmol/L (136-145); TSH 1.33 uIU/mL (0.36-3.74); Total Protein 6.7 g/dL (6.4-8.2)
== END 2022-06-13 02:03 | disposition home or self-care (01) ==
LOC: LBO 02:02
PROVIDERS: PCP Nurse Practitioner; Visit Provider Internal Medicine Medical Oncology
DX: C79.51 Secondary malignant neoplasm of bone (principal); Z79.899 Other long term (current) drug therapy; C34.31 Malignant neoplasm of lower lobe, right bronchus or lung; D64.81 Anemia due to antineoplastic chemotherapy; T45.1X5A Adverse effect of antineoplastic and immunosuppressive drugs, initial encounter
CPT/HCPCS: 36415; 80053; 86850; 86900; 86901; 83735; 84439; 84443; 85025

== ENCOUNTER 2022-07-04 03:58 | Outpatient (CLI) | payer MEDICARE, SELFPAY ==
[2022-07-04 07:55] LABS: Abs Immature Grans 0.06 10^3/uL (0.0-0.06); Absolute Basophil Count 0.05 10^3/uL (0.0-0.2); Absolute Eosinophil Count 0.49 10^3/uL (0.0-0.7); Absolute Lymphocyte Count 2.15 10^3/uL (1.2-3.4); Absolute Monocyte Count 1.19 10^3/uL (0.1-0.8); Absolute Neutrophil Count 4.41 10^3/uL (1.2-6.7); Basophils % 0.6; Eosinophils % 5.9; HCT 28.5 % (40.0-50.0); HGB 9.4 g/dL (13.5-17.5); Immature Grans % 0.7; Lymphocytes % 25.7; MCH 34.1 pg (27.0-33.0); MCV 103 fL (80-95); MPV 10.1 fL (8.0-11.0); Monocytes % 14.3; Neutrophils % 52.8; Platelet Count 345 10^3/uL (130-400); RBC 2.76 10^6/uL (4.36-5.78); RDW 20.1 % (11.8-14.1); RDW-SD 74.8 fL; WBC 8.35 10^3/uL (4.4-10.8)
[2022-07-04 08:20] LABS: ALT 35 U/L (16-63); AST 28 U/L (15-37); Albumin 2.9 g/dL (3.4-5.0); Alkaline Phosphatase 83 U/L (46-116); Anion Gap 8.8 mmol/L (3-11); BUN 21 mg/dL (7-18); Bilirubin, Total 0.2 mg/dL (0.2-1.0); CO2 23.2 mmol/L (21.0-32.0); CREATININE 1.4 mg/dL (0.70-1.30); Calcium 8.3 mg/dL (8.5-10.1); Chloride 103 mmol/L (98-107); FREE T4 0.99 ng/dL (0.76-1.46); Glucose 103 mg/dL (74-106); Magnesium 2.1 mg/dL (1.8-2.4); Potassium 4.9 mmol/L (3.5-5.1); Sodium 135 mmol/L (136-145); TSH 2.04 uIU/mL (0.36-3.74); Total Protein 6.6 g/dL (6.4-8.2)
[2022-07-04 08:39] LABS: Anisocytosis 2+; Diff Comment RBC Morph Reviewed
== END 2022-07-04 03:59 | disposition home or self-care (01) ==
LOC: LBO 03:58
PROVIDERS: PCP Nurse Practitioner; Visit Provider Internal Medicine Medical Oncology
DX: Z79.899 Other long term (current) drug therapy (principal); D64.81 Anemia due to antineoplastic chemotherapy; C34.31 Malignant neoplasm of lower lobe, right bronchus or lung; C79.51 Secondary malignant neoplasm of bone; T45.1X5A Adverse effect of antineoplastic and immunosuppressive drugs, initial encounter
CPT/HCPCS: 36415; 80053; 86850; 86900; 86901; 83735; 84439; 84443; 85025

== ENCOUNTER 2022-07-25 04:26 | Outpatient (CLI) | payer MEDICARE, SELFPAY ==
[2022-07-25 08:19] LABS: Abs Immature Grans 0.04 10^3/uL (0.0-0.06); Absolute Basophil Count 0.03 10^3/uL (0.0-0.2); Absolute Lymphocyte Count 1.53 10^3/uL (1.2-3.4); Absolute Monocyte Count 1.14 10^3/uL (0.1-0.8); Absolute Neutrophil Count 4.74 10^3/uL (1.2-6.7); Basophils % 0.4; Eosinophils % 5.1; HCT 26.4 % (40.0-50.0); HGB 8.6 g/dL (13.5-17.5); Immature Grans % 0.5; Lymphocytes % 19.4; MCH 34.5 pg (27.0-33.0); MCHC 32.6 % (32.0-36.0); MCV 106 fL (80-95); MPV 10.3 fL (8.0-11.0); Monocytes % 14.5; Neutrophils % 60.1; Platelet Count 319 10^3/uL (130-400); RBC 2.49 10^6/uL (4.36-5.78); RDW 20.6 % (11.8-14.1); WBC 7.88 10^3/uL (4.4-10.8)
[2022-07-25 08:52] LABS: Anisocytosis 2+; Diff Comment Diff Reviewed
[2022-07-25 08:53] LABS: ALT 42 U/L (16-63); AST 27 U/L (15-37); Albumin 2.9 g/dL (3.4-5.0); Alkaline Phosphatase 82 U/L (46-116); Anion Gap 5.3 mmol/L (3-11); BUN 24 mg/dL (7-18); Bilirubin, Total 0.2 mg/dL (0.2-1.0); CO2 24.7 mmol/L (21.0-32.0); CREATININE 1.3 mg/dL (0.70-1.30); Calcium 8.5 mg/dL (8.5-10.1); Chloride 105 mmol/L (98-107); Estimated GFR 54.57 (mL/min/1.73m2); FREE T4 1.11 ng/dL (0.76-1.46); Glucose 98 mg/dL (74-106); Hypochromasia 2+; Macrocytosis 2+; Magnesium 2.2 mg/dL (1.8-2.4); Sodium 135 mmol/L (136-145); TSH 1.84 uIU/mL (0.36-3.74); Total Protein 6.4 g/dL (6.4-8.2)
[2022-07-25 08:57] LABS: Potassium 6.1 mmol/L (3.5-5.1)
== END 2022-07-25 04:27 | disposition home or self-care (01) ==
LOC: LBO 04:26
PROVIDERS: PCP Nurse Practitioner; Visit Provider Internal Medicine Medical Oncology
DX: C79.51 Secondary malignant neoplasm of bone (principal); C34.31 Malignant neoplasm of lower lobe, right bronchus or lung; D64.81 Anemia due to antineoplastic chemotherapy; Z79.899 Other long term (current) drug therapy
CPT/HCPCS: 36415; 80053; 86900; 86901; 83735; 84439; 84443; 85025

== ENCOUNTER 2022-07-26 03:37 | Outpatient (CLI) | payer MEDICARE, SELFPAY ==
[2022-07-26 11:13] LABS: ALT 31 U/L (16-63); AST 24 U/L (15-37); Albumin 2.8 g/dL (3.4-5.0); Alkaline Phosphatase 82 U/L (46-116); Anion Gap 6.1 mmol/L (3-11); BUN 26 mg/dL (7-18); Bilirubin, Total 0.2 mg/dL (0.2-1.0); CO2 23.9 mmol/L (21.0-32.0); CREATININE 1.5 mg/dL (0.70-1.30); Calcium 8.5 mg/dL (8.5-10.1); Chloride 106 mmol/L (98-107); Estimated GFR 49.77 (mL/min/1.73m2); Glucose 93 mg/dL (74-106); Potassium 5.1 mmol/L (3.5-5.1); Sodium 136 mmol/L (136-145); Total Protein 6.4 g/dL (6.4-8.2)
== END 2022-07-26 03:38 | disposition home or self-care (01) ==
LOC: LBO 03:37
PROVIDERS: PCP Nurse Practitioner; Visit Provider Internal Medicine Medical Oncology
DX: C34.31 Malignant neoplasm of lower lobe, right bronchus or lung (principal); C79.51 Secondary malignant neoplasm of bone
CPT/HCPCS: 36415; 80053; 86900; 86901; 83735; 84439; 84443; 85025

== ENCOUNTER → 2022-08-02 00:47 | Outpatient (CLI) | payer MEDICARE, SELFPAY ==
--- NOTE | 2022-08-02 | DI.CT_ITS ---
Exam(s) CT CHEST W EXAM: CT CHEST W CLINICAL HISTORY: RT LUNG CA, C34.31,SECONDARY CA OF BONE,C79.51,ON CHEMOIMMUNOTHERAPY,ASSESS TECHNIQUE: Imaging Protocol: Axial computed tomography images with coronal and sagittal reformatted images were created and reviewed CONTRAST MATERIAL: Intravenous: Omnipaque 350Contrast volume:70 mL. COMPARISON: CT CT CHEST LUNG CANCER SCREEN from 12/08/[address] CHEST W from 03/30/[address] CHEST WO from 05/12/2022 FINDINGS: Tracheobronchial tree: Patent where visualized. Pulmonary parenchyma: Moderate centrilobular and paraseptal emphysematous changes are present. There has been continued decrease in size of the spiculated nodule in the superior segment of the right lo wer lobe. There are stable pulmonary nodules. There are new very small bilateral pleural effusions. There is a small area atelectasis in the right lobe base. Mediastinum and Monika: No dominant adenopathy or fluid collection. The esophagus is unremarkable. Thyroid gland: Unremarkable. Pleura: No pneumothorax. Heart: The heart is not dilated. Coronary artery calcification and/or vascular stents are present. T here is now a small pericardial effusion. Aorta: Thoracic aorta non-dilated. Atherosclerosis is present. Pulmonary arteries: The pulmonary arteries are inadequately opacified for evaluation of pulmonary emb maddy. Upper abdomen: There is bilateral nephrolithiasis without evidence of obstruction. Calcified granul thiago are seen in the spleen. Lymph nodes: Within normal limits. Bones: Within normal limits for the patient's age. Soft tissues: Unremarkable. IMPRESSION: 1. Continued decrease in size of the spiculated right lower lobe pulmonary nodule. 2. Interval development of very small bilateral pleural effusions and a small subjacent infiltrate in the right lung base. This may represent atelectasis or possibly pneumonia. Please correlate clinic ally. 3. Development of a small pericardial effusion. RADIATION DOSE DELIVERED: 386.05mGy.cm Total DLP DATA REPOSITORY: All CT scans at this facility are submitted to the National Radiology Data Registry (NRDR) Dose Index Registry (DIR) with the [employer] (ACR). RADIATION OPTIMIZATION: All CT scans at this facility use at least one of these dose optimization te chniques: automated exposure control; mA and/or kV adjustment per patient size (includes targeted exa ms where dose is matched to clinical indication); or iterative reconstruction.
[2022-08-02] MEDS: Omnipaque 350 MG/ML 100 ML BTL IJ (13:19)
[2022-08-02] MEDS: Normal Saline Flush 10 ML SYR 20 ML IVP (13:20)
== END ==
PROVIDERS: PCP Nurse Practitioner; Visit Provider Internal Medicine Medical Oncology
DX: J90 Pleural effusion, not elsewhere classified (principal); R91.1 Solitary pulmonary nodule
CPT/HCPCS: 71260; J3490

== ENCOUNTER 2022-08-15 03:28 | Outpatient (CLI) | payer MEDICARE, SELFPAY ==
[2022-08-15 08:33] LABS: Abs Immature Grans 0.02 10^3/uL (0.0-0.06); Absolute Basophil Count 0.05 10^3/uL (0.0-0.2); Absolute Eosinophil Count 0.38 10^3/uL (0.0-0.7); Absolute Lymphocyte Count 1.42 10^3/uL (1.2-3.4); Absolute Monocyte Count 1.12 10^3/uL (0.1-0.8); Absolute Neutrophil Count 4.37 10^3/uL (1.2-6.7); Basophils % 0.7; Eosinophils % 5.2; HCT 25.4 % (40.0-50.0); HGB 8.8 g/dL (13.5-17.5); Immature Grans % 0.3; Lymphocytes % 19.3; MCH 36.4 pg (27.0-33.0); MCHC 34.6 % (32.0-36.0); MCV 105 fL (80-95); MPV 10.4 fL (8.0-11.0); Monocytes % 15.2; Neutrophils % 59.3; Platelet Count 380 10^3/uL (130-400); RBC 2.42 10^6/uL (4.36-5.78); RDW 20.4 % (11.8-14.1); RDW-SD 78.4 fL; WBC 7.36 10^3/uL (4.4-10.8)
[2022-08-15 09:06] LABS: ALT 26 U/L (16-63); AST 21 U/L (15-37); Albumin 2.6 g/dL (3.4-5.0); Alkaline Phosphatase 98 U/L (46-116); Anion Gap 9.4 mmol/L (3-11); BUN 23 mg/dL (7-18); Bilirubin, Total 0.2 mg/dL (0.2-1.0); CO2 24.6 mmol/L (21.0-32.0); CREATININE 1.6 mg/dL (0.70-1.30); Calcium 8.5 mg/dL (8.5-10.1); Chloride 105 mmol/L (98-107); Estimated GFR 46.06 (mL/min/1.73m2); Glucose 105 mg/dL (74-106); Magnesium 1.9 mg/dL (1.8-2.4); Potassium 3.8 mmol/L (3.5-5.1); Sodium 139 mmol/L (136-145); TSH 3.48 uIU/mL (0.36-3.74); Total Protein 6.4 g/dL (6.4-8.2)
== END 2022-08-15 03:29 | disposition home or self-care (01) ==
LOC: LBO 03:29
PROVIDERS: PCP Nurse Practitioner; Visit Provider Internal Medicine Medical Oncology
DX: Z79.899 Other long term (current) drug therapy (principal); C34.31 Malignant neoplasm of lower lobe, right bronchus or lung
CPT/HCPCS: 36415; 80053; 86900; 86901; 83735; 84439; 84443; 85025

== ENCOUNTER 2022-09-05 03:03 | Outpatient (CLI) | payer MEDICARE, SELFPAY ==
[2022-09-05 10:00] LABS: Abs Immature Grans 0.02 10^3/uL (0.0-0.06); Absolute Basophil Count 0.03 10^3/uL (0.0-0.2); Absolute Eosinophil Count 0.27 10^3/uL (0.0-0.7); Absolute Lymphocyte Count 1.22 10^3/uL (1.2-3.4); Absolute Monocyte Count 1.12 10^3/uL (0.1-0.8); Absolute Neutrophil Count 3.59 10^3/uL (1.2-6.7); Basophils % 0.5; Eosinophils % 4.3; HCT 27.7 % (40.0-50.0); HGB 9.2 g/dL (13.5-17.5); Immature Grans % 0.3; Lymphocytes % 19.5; MCH 36.8 pg (27.0-33.0); MCHC 33.2 % (32.0-36.0); MCV 111 fL (80-95); Monocytes % 17.9; Neutrophils % 57.5; Platelet Count 333 10^3/uL (130-400); RDW 19.5 % (11.8-14.1); RDW-SD 79.6 fL; WBC 6.25 10^3/uL (4.4-10.8)
[2022-09-05 10:27] LABS: ALT 40 U/L (16-63); AST 28 U/L (15-37); Albumin 2.8 g/dL (3.4-5.0); Alkaline Phosphatase 95 U/L (46-116); Anion Gap 8.8 mmol/L (3-11); BUN 22 mg/dL (7-18); Bilirubin, Total 0.2 mg/dL (0.2-1.0); CO2 23.2 mmol/L (21.0-32.0); CREATININE 1.7 mg/dL (0.70-1.30); Calcium 8.5 mg/dL (8.5-10.1); Chloride 106 mmol/L (98-107); Estimated GFR 42.83 (mL/min/1.73m2); FREE T4 1.25 ng/dL (0.76-1.46); Glucose 99 mg/dL (74-106); Potassium 4.9 mmol/L (3.5-5.1); Sodium 138 mmol/L (136-145); TSH 2.79 uIU/mL (0.36-3.74); Total Protein 6.7 g/dL (6.4-8.2)
== END 2022-09-05 03:04 | disposition home or self-care (01) ==
PROVIDERS: PCP Nurse Practitioner; Visit Provider Internal Medicine Medical Oncology
DX: C79.51 Secondary malignant neoplasm of bone (principal); C34.31 Malignant neoplasm of lower lobe, right bronchus or lung; Z79.899 Other long term (current) drug therapy; D64.81 Anemia due to antineoplastic chemotherapy; T45.1X5A Adverse effect of antineoplastic and immunosuppressive drugs, initial encounter
CPT/HCPCS: 36415; 80053; 86850; 86900; 86901; 83735; 84439; 84443; 85025

== ENCOUNTER 2022-09-26 03:21 | Outpatient (CLI) | payer MEDICARE, SELFPAY ==
[2022-09-26 07:47] LABS: Abs Immature Grans 0.06 10^3/uL (0.0-0.06); Absolute Basophil Count 0.05 10^3/uL (0.0-0.2); Absolute Lymphocyte Count 1.19 10^3/uL (1.2-3.4); Absolute Monocyte Count 1.19 10^3/uL (0.1-0.8); Absolute Neutrophil Count 6.07 10^3/uL (1.2-6.7); Basophils % 0.6; Eosinophils % 2.3; HCT 26.2 % (40.0-50.0); HGB 8.9 g/dL (13.5-17.5); Immature Grans % 0.7; Lymphocytes % 13.6; MCH 37.6 pg (27.0-33.0); MCV 111 fL (80-95); MPV 11.4 fL (8.0-11.0); Monocytes % 13.6; Neutrophils % 69.2; Platelet Count 295 10^3/uL (130-400); RBC 2.37 10^6/uL (4.36-5.78); RDW 17.8 % (11.8-14.1); WBC 8.76 10^3/uL (4.4-10.8)
[2022-09-26 07:54] LABS: Anisocytosis 1+; Diff Comment Diff Reviewed; Macrocytosis 1+; Polychromasia Present
[2022-09-26 08:03] LABS: ALT 34 U/L (16-63); AST 28 U/L (15-37); Albumin 2.8 g/dL (3.4-5.0); Alkaline Phosphatase 101 U/L (46-116); Anion Gap 9.5 mmol/L (3-11); BUN 31 mg/dL (7-18); Bilirubin, Total 0.2 mg/dL (0.2-1.0); CO2 22.5 mmol/L (21.0-32.0); CREATININE 1.8 mg/dL (0.70-1.30); Calcium 8.5 mg/dL (8.5-10.1); Chloride 105 mmol/L (98-107); Estimated GFR 39.99 (mL/min/1.73m2); FREE T4 1.23 ng/dL (0.76-1.46); Glucose 109 mg/dL (74-106); Magnesium 2.1 mg/dL (1.8-2.4); Potassium 4.2 mmol/L (3.5-5.1); Sodium 137 mmol/L (136-145); TSH 2.74 uIU/mL (0.36-3.74); Total Protein 6.5 g/dL (6.4-8.2)
== END 2022-09-26 03:22 | disposition home or self-care (01) ==
LOC: LBO 03:21
PROVIDERS: PCP Nurse Practitioner; Visit Provider Internal Medicine Medical Oncology
DX: C34.31 Malignant neoplasm of lower lobe, right bronchus or lung (principal); C79.51 Secondary malignant neoplasm of bone; Z79.899 Other long term (current) drug therapy; D64.81 Anemia due to antineoplastic chemotherapy; T45.1X5A Adverse effect of antineoplastic and immunosuppressive drugs, initial encounter
CPT/HCPCS: 36415; 80053; 86900; 86901; 83735; 84439; 84443; 85025

== ENCOUNTER 2022-10-17 02:49 | Outpatient (CLI) | payer MEDICARE, SELFPAY ==
[2022-10-17 10:10] LABS: Abs Immature Grans 0.01 10^3/uL (0.0-0.06); Absolute Basophil Count 0.11 10^3/uL (0.0-0.2); Absolute Eosinophil Count 0.25 10^3/uL (0.0-0.7); Absolute Lymphocyte Count 1.13 10^3/uL (1.2-3.4); Absolute Monocyte Count 0.87 10^3/uL (0.1-0.8); Basophils % 1.4; Eosinophils % 3.1; HCT 31.8 % (40.0-50.0); HGB 10.7 g/dL (13.5-17.5); Immature Grans % 0.1; MCH 37.4 pg (27.0-33.0); MCHC 33.6 % (32.0-36.0); MCV 111 fL (80-95); MPV 11.5 fL (8.0-11.0); Monocytes % 10.8; Neutrophils % 70.6; Platelet Count 176 10^3/uL (130-400); RBC 2.86 10^6/uL (4.36-5.78); RDW 14.5 % (11.8-14.1); RDW-SD 59.3 fL; WBC 8.07 10^3/uL (4.4-10.8)
[2022-10-17 10:38] LABS: ALT 25 U/L (16-63); AST 27 U/L (15-37); Albumin 2.9 g/dL (3.4-5.0); Alkaline Phosphatase 106 U/L (46-116); Anion Gap 8.9 mmol/L (3-11); BUN 31 mg/dL (7-18); Bilirubin, Total 0.3 mg/dL (0.2-1.0); CO2 23.1 mmol/L (21.0-32.0); CREATININE 1.8 mg/dL (0.70-1.30); Calcium 8.9 mg/dL (8.5-10.1); Chloride 103 mmol/L (98-107); Estimated GFR 39.99 (mL/min/1.73m2); FREE T4 1.21 ng/dL (0.76-1.46); Glucose 101 mg/dL (74-106); Magnesium 2.3 mg/dL (1.8-2.4); Potassium 5.4 mmol/L (3.5-5.1); Sodium 135 mmol/L (136-145); TSH 2.16 uIU/mL (0.36-3.74); Total Protein 6.8 g/dL (6.4-8.2)
== END 2022-10-17 02:50 | disposition home or self-care (01) ==
LOC: LBO 02:49
PROVIDERS: PCP Nurse Practitioner; Visit Provider Internal Medicine Medical Oncology
DX: C79.51 Secondary malignant neoplasm of bone (principal); C34.31 Malignant neoplasm of lower lobe, right bronchus or lung; Z79.899 Other long term (current) drug therapy
CPT/HCPCS: 36415; 80053; 86900; 86901; 83735; 84439; 84443; 85025

== ENCOUNTER → 2022-11-03 00:44 | Outpatient (CLI) | payer MEDICARE, SELFPAY ==
--- NOTE | 2022-11-03 | DI.CT_ITS ---
Exam(s) CT CHEST W EXAM: CT CHEST W CLINICAL HISTORY: RLL LUNG CA, C34.31, METASTATIC ASSESS TREATMENT RESPONSE TECHNIQUE: Imaging Protocol: Axial computed tomography images with coronal and sagittal reformatted images were created and reviewed CONTRAST MATERIAL: Intravenous: Omnipaque 350Contrast volume:50 mL. COMPARISON: CT CT CHEST W from 03/30/[address] CHEST W from 08/02/2022 FINDINGS: Tracheobronchial tree: Patent where visualized. Pulmonary parenchyma: Emphysematous changes are present in the lungs. The spiculated nodular area in the superior segment of the right lower lobe is unchanged. The 3 mm nodule in the lateral aspect of the left lower lobe is stable. Mediastinum and Monika: No dominant adenopathy or fluid collection. The esophagus is unremarkable. Thyroid gland: Unremarkable. Pleura: There has been marked increase in size of the right pleural effusion which is now large in ex tends into the major fissure. There is also been an increase in size of the left pleural effusion wh ich now is moderate in size. Heart: The heart is not dilated. Coronary artery calcifications are present. The pericardial effusio n has shown an increase in size measuring up to 3.2 cm in thickness. Aorta: Thoracic aorta non-dilated. Atherosclerosis is present. Pulmonary arteries: The pulmonary arteries are inadequately opacified for evaluation of pulmonary emb maddy. Upper abdomen: Splenic granuloma are seen. Lymph nodes: Within normal limits. Bones: Within normal limits for the patient's age. Soft tissues: Unremarkable. IMPRESSION: 1. Marked interval progression of the bilateral pleural effusions which are now large on the right an d moderate on the left. 2. Significant increase in size of the pericardial effusion measuring up to 3.2 cm in thickness. 3. Stable spiculated nodular area in the superior segment of the right lower lobe. Stable 3 mm left lower lobe pulmonary nodule. RADIATION DOSE DELIVERED: 396.47mGy.cm Total DLP DATA REPOSITORY: All CT scans at this facility are submitted to the National Radiology Data Registry (NRDR) Dose Index Registry (DIR) with the [employer] (ACR). RADIATION OPTIMIZATION: All CT scans at this facility use at least one of these dose optimization te chniques: automated exposure control; mA and/or kV adjustment per patient size (includes targeted exa ms where dose is matched to clinical indication); or iterative reconstruction.
[2022-11-03 13:40] LABS: CREATININE 1.9 mg/dL (0.70-1.30); Estimated GFR 37.25 (mL/min/1.73m2)
[2022-11-03] MEDS: Omnipaque 350 MG/ML 100 ML BTL IJ (15:05)
[2022-11-03] MEDS: Normal Saline - Diluent 50 ML VIAL IJ (15:06)
== END ==
PROVIDERS: PCP Nurse Practitioner; Visit Provider Nurse Practitioner Adult Health
DX: C34.31 Malignant neoplasm of lower lobe, right bronchus or lung (principal)
CPT/HCPCS: 71260; 82565; J3490

== ENCOUNTER 2022-11-07 03:09 | Outpatient (CLI) | payer MEDICARE, SELFPAY ==
[2022-11-07 10:43] LABS: Abs Immature Grans 0.03 10^3/uL (0.0-0.06); Absolute Basophil Count 0.07 10^3/uL (0.0-0.2); Absolute Eosinophil Count 0.41 10^3/uL (0.0-0.7); Absolute Lymphocyte Count 1.24 10^3/uL (1.2-3.4); Absolute Monocyte Count 0.72 10^3/uL (0.1-0.8); Absolute Neutrophil Count 6.13 10^3/uL (1.2-6.7); Basophils % 0.8; Eosinophils % 4.8; HCT 31.3 % (40.0-50.0); HGB 10.4 g/dL (13.5-17.5); Immature Grans % 0.3; Lymphocytes % 14.4; MCHC 33.2 % (32.0-36.0); MCV 108 fL (80-95); MPV 10.6 fL (8.0-11.0); Monocytes % 8.4; Neutrophils % 71.3; Platelet Count 203 10^3/uL (130-400); RBC 2.89 10^6/uL (4.36-5.78); RDW 13.1 % (11.8-14.1); RDW-SD 52.4 fL
[2022-11-07 11:08] LABS: ALT 22 U/L (16-63); AST 21 U/L (15-37); Albumin 2.9 g/dL (3.4-5.0); Alkaline Phosphatase 104 U/L (46-116); Anion Gap 7.5 mmol/L (3-11); BUN 30 mg/dL (7-18); Bilirubin, Total 0.2 mg/dL (0.2-1.0); CO2 22.5 mmol/L (21.0-32.0); CREATININE 1.7 mg/dL (0.70-1.30); Calcium 8.9 mg/dL (8.5-10.1); Chloride 101 mmol/L (98-107); Estimated GFR 42.57 (mL/min/1.73m2); FREE T4 1.14 ng/dL (0.76-1.46); Glucose 96 mg/dL (74-106); Potassium 5.4 mmol/L (3.5-5.1); Sodium 131 mmol/L (136-145); Total Protein 6.8 g/dL (6.4-8.2)
== END 2022-11-07 03:10 | disposition home or self-care (01) ==
LOC: LBO 03:09
PROVIDERS: PCP Nurse Practitioner; Visit Provider Internal Medicine Medical Oncology
DX: C79.51 Secondary malignant neoplasm of bone (principal); C34.31 Malignant neoplasm of lower lobe, right bronchus or lung; Z79.899 Other long term (current) drug therapy; D64.81 Anemia due to antineoplastic chemotherapy; T45.1X5A Adverse effect of antineoplastic and immunosuppressive drugs, initial encounter
CPT/HCPCS: 36415; 80053; 86900; 86901; 83735; 84439; 84443; 85025

== ENCOUNTER 2022-12-05 03:23 | Outpatient (CLI) | payer MEDICARE, SELFPAY ==
[2022-12-05 12:43] LABS: Abs Immature Grans 0.06 10^3/uL (0.0-0.06); Absolute Basophil Count 0.01 10^3/uL (0.0-0.2); Absolute Eosinophil Count 0.05 10^3/uL (0.0-0.7); Absolute Lymphocyte Count 0.79 10^3/uL (1.2-3.4); Absolute Monocyte Count 0.42 10^3/uL (0.1-0.8); Absolute Neutrophil Count 8.81 10^3/uL (1.2-6.7); Basophils % 0.1; Eosinophils % 0.5; HCT 32.3 % (40.0-50.0); HGB 10.9 g/dL (13.5-17.5); Immature Grans % 0.6; Lymphocytes % 7.8; MCH 34.9 pg (27.0-33.0); MCHC 33.7 % (32.0-36.0); MCV 104 fL (80-95); MPV 10.5 fL (8.0-11.0); Monocytes % 4.1; Neutrophils % 86.9; Platelet Count 162 10^3/uL (130-400); RBC 3.12 10^6/uL (4.36-5.78); RDW 13.8 % (11.8-14.1); RDW-SD 52.7 fL; WBC 10.14 10^3/uL (4.4-10.8)
[2022-12-05 13:13] LABS: ALT 26 U/L (16-63); AST 21 U/L (15-37); Albumin 3.2 g/dL (3.4-5.0); Alkaline Phosphatase 70 U/L (46-116); Anion Gap 6.8 mmol/L (3-11); BUN 32 mg/dL (7-18); Bilirubin, Total 0.3 mg/dL (0.2-1.0); CO2 27.2 mmol/L (21.0-32.0); CREATININE 1.6 mg/dL (0.70-1.30); Calcium 9.2 mg/dL (8.5-10.1); Chloride 103 mmol/L (98-107); Estimated GFR 45.78 (mL/min/1.73m2); FREE T4 1.21 ng/dL (0.76-1.46); Glucose 122 mg/dL (74-106); Magnesium 2.2 mg/dL (1.8-2.4); Potassium 4.6 mmol/L (3.5-5.1); Sodium 137 mmol/L (136-145); TSH 1.21 uIU/mL (0.36-3.74); Total Protein 6.8 g/dL (6.4-8.2)
== END 2022-12-05 03:24 | disposition home or self-care (01) ==
LOC: LBO 03:23
PROVIDERS: PCP Nurse Practitioner; Visit Provider Internal Medicine Medical Oncology
DX: Z79.899 Other long term (current) drug therapy (principal); C79.51 Secondary malignant neoplasm of bone; C34.31 Malignant neoplasm of lower lobe, right bronchus or lung
CPT/HCPCS: 36415; 80053; 83735; 84439; 84443; 85025

== ENCOUNTER 2023-01-23 02:54 | Outpatient (CLI) | payer MEDICARE, SELFPAY ==
[2023-01-23 13:07] LABS: Abs Immature Grans 0.03 10^3/uL (0.0-0.06); Absolute Basophil Count 0.09 10^3/uL (0.0-0.2); Absolute Eosinophil Count 0.07 10^3/uL (0.0-0.7); Absolute Lymphocyte Count 1.23 10^3/uL (1.2-3.4); Absolute Monocyte Count 0.85 10^3/uL (0.1-0.8); Absolute Neutrophil Count 6.89 10^3/uL (1.2-6.7); Eosinophils % 0.8; HGB 9.7 g/dL (13.5-17.5); Immature Grans % 0.3; Lymphocytes % 13.4; MCH 32.1 pg (27.0-33.0); MCHC 32.3 % (32.0-36.0); MCV 99 fL (80-95); MPV 9.6 fL (8.0-11.0); Monocytes % 9.3; Neutrophils % 75.2; Platelet Count 342 10^3/uL (130-400); RBC 3.02 10^6/uL (4.36-5.78); RDW 13.9 % (11.8-14.1); WBC 9.16 10^3/uL (4.4-10.8)
[2023-01-23 13:33] LABS: ALT 13 U/L (16-63); AST 9 U/L (15-37); Albumin 2.1 g/dL (3.4-5.0); Alkaline Phosphatase 94 U/L (46-116); Anion Gap 8.1 mmol/L (3-11); BUN 19 mg/dL (7-18); Bilirubin, Total 0.2 mg/dL (0.2-1.0); CO2 25.9 mmol/L (21.0-32.0); CREATININE 1.6 mg/dL (0.70-1.30); Calcium 8.7 mg/dL (8.5-10.1); Chloride 107 mmol/L (98-107); Estimated GFR 45.78 (mL/min/1.73m2); FREE T4 1.24 ng/dL (0.76-1.46); Glucose 176 mg/dL (74-106); Magnesium 1.9 mg/dL (1.8-2.4); Potassium 3.7 mmol/L (3.5-5.1); Sodium 141 mmol/L (136-145); TSH 1.56 uIU/mL (0.36-3.74); Total Protein 6.2 g/dL (6.4-8.2)
== END 2023-01-23 02:55 | disposition home or self-care (01) ==
LOC: LBO 02:54
PROVIDERS: PCP Nurse Practitioner; Visit Provider Internal Medicine Medical Oncology
DX: Z79.899 Other long term (current) drug therapy (principal); C79.51 Secondary malignant neoplasm of bone; C34.31 Malignant neoplasm of lower lobe, right bronchus or lung
CPT/HCPCS: 36415; 80053; 83735; 84439; 84443; 85025

== ENCOUNTER 2023-02-17 06:59 | Day surgery (SDC) | payer MEDICARE, SELFPAY ==
[2023-02-17 07:00] VITALS: BP 115/63; PULSE 98; RESP 18; TEMP 36.2; O2SAT 99
[2023-02-17] MEDS: Tropicam./Phenyleph. (1/2.5%) 5 ML BTL OS ×3 (07:11→07:21)
--- NOTE | 2023-02-17 07:24 | W.ANESPRE ---
General Info Date of Service Date Performed: 02/17/23 Height: 5 ft 3.5 in Weight: 57.1 kg Body Mass Index (BMI): 21.9 Surgical Procedure: Operation Date: 02/17/23 08:40 Proposed Procedure Side Surgeon p Cataract Extraction with IOL Implant Left Fito Pond MD Meds Allergies and Home Medications Allergies Allergy/AdvReac Type Severity Reaction Status Date / Time No Known Allergies Allergy Verified 02/17/23 07:13 Home Medication Medication Instructions Recorded acetaminophen 325 mg capsule 325 mg PO Q4H PRN 04/20/21 amlodipine 10 mg tablet 10 mg PO DAILY #90 tabs 11/14/22 metoprolol succinate 50 mg 50 mg PO DAILY #90 tabs 11/14/22 tablet,extended release 24 hr docusate sodium 100 mg capsule 100 mg PO TID PRN x 10 days 12/23/22 (Colace) lorazepam 0.5 mg tablet 0.5 mg PO .1-2 tabs prior MRI PRN 12/23/22 sennosides 8.6 mg tablet (senna) 17.2 mg PO DAILY conctipation 12/23/22 Current Visit Medications: Current Medications Generic Name Dose Route Start Last Admin Trade Name Freq PRN Reason Stop Dose Admin Acetaminophen 1,000 mg 02/17/23 06:00 Acetaminophen 500 Mg Tab PO Q4H PRN PRN Miscellaneous Medication 0 ml 02/17/23 06:00 02/17/23 07:16 Tropicam./Phenyleph. (1/2.5%) 5 Ml Btl OS 1 drp DIRECTED MIK Administration Miscellaneous Medication 0 ml 02/17/23 06:00 Prednisolone 1%, Moxifloxacin 0.5%, Nepafenac 0.1% 5ml Btl OS DIRECTED MIK Tetracaine HCl 0 ml 02/17/23 06:00 Tetracaine 0.5% 4 Ml Btl OS DIRECTED MIK PFSH Active Problems Active Problems: Problem Status Onset Code Macular degeneration (senile) of retina H35.30 Poliomyelitis A80.9 Encounter to establish care Z76.89 Elevated blood pressure reading in office with diagnosis of hypertension I10 HTN (hypertension) with goal to be determined I10 IFG (impaired fasting glucose) R73.01 Colonoscopy refused Z53.20 Failure to attend screening for abdominal aortic aneurysm (AAA) Hyponatremia E87.1 Hyperkalemia E87.5 Pre-op evaluation Z01.818 Nuclear sclerotic cataract of right eye H25.11 Posterior subcapsular age-related cataract, right eye H25.041 Abnormal blood chemistry R79.9 Hyponatremia E87.1 Screening for prostate cancer Z12.5 Elevated PSA R97.20 Hyperkalemia E87.5 Hypertension I10 Nicotine dependence, cigarettes, uncomplicated F17.210 Pulmonary nodule R91.1 Metastatic lung cancer (metastasis from lung to other site) C34.90 Adenopathy, hilar R59.0 Mediastinal adenopathy R59.0 S/P bronchoscopy Z98.890 Secondary malignant neoplasm of bone C79.51 Anemia due to antineoplastic chemotherapy ~04/2022 D64.81, T45.1X5A Abnormal blood level of magnesium R79.0 Elevated serum creatinine ~09/2022 R79.89 Effusion, pericardium ~11/2022 I31.39 Pleural effusion, malignant J91.0 Recurrent pleural effusion on right J90 Nuclear age-related cataract, left eye H25.12 Medical History Medical History Abnormal chest CT Encounter for screening for lung cancer Smoker Medical History Comments:: Can lay flat Surgical History Surgical History (Updated 02/17/23 @ 07:13 by Shira Colón) History of bronchoscopy (~12/19/22) 12/19/22 DH 01/05/23 Bronchoscopy and Thoracoscopy DH History of cataract surgery Tobacco Smoking/Tobacco Use Status: Current every day Tobacco Type: cigarettes Alcohol Alcohol Intake: current Alcohol intake frequency: 0-2 drinks per day Alcohol type: beer Substance Use Substance use: Never Substance use type: does not use Vital Signs and Lab Results Vital Signs Most Recent Vital Signs in EMR: Most Recent Vital Signs Temp Pulse Resp BP Pulse Ox 36.2 C L 98 H 18 115/63 99 02/17/23 07:00 02/17/23 07:00 02/17/23 07:00 02/17/23 07:00 02/17/23 07:00 Lab Results Blood Type / Crossmatch: No Data to Display Complete Blood Count: White Blood Count 9.16 10^3/uL (4.4-10.8) 01/23/23 13:04 Red Blood Count 3.02 10^6/uL (4.36-5.78) L 01/23/23 13:04 Hemoglobin 9.7 g/dL (13.5-17.5) L 01/23/23 13:04 Hematocrit 30.0 % (40.0-50.0) L 01/23/23 13:04 Platelet Count 342 10^3/uL (130-400) 01/23/23 13:04 Complete Metabolic Panel: Sodium 141 mmol/L (136-145) 01/23/23 13:04 Potassium 3.7 mmol/L (3.5-5.1) 01/23/23 13:04 Chloride 107 mmol/L (98-107) 01/23/23 13:04 Carbon Dioxide 25.9 mmol/L (21.0-32.0) 01/23/23 13:04 BUN 19 mg/dL (7-18) H 01/23/23 13:04 Creatinine 1.6 mg/dL (0.70-1.30) H 01/23/23 13:04 Est GFR (CKD-EPI 2020) 45.78 (mL/min/1.73m2) 01/23/23 13:04 Magnesium 1.9 mg/dL (1.8-2.4) 01/23/23 13:04 Calcium 8.7 mg/dL (8.5-10.1) 01/23/23 13:04 Albumin 2.1 g/dL (3.4-5.0) L 01/23/23 13:04 Glucose 176 mg/dL (74-106) H 01/23/23 13:04 Liver Function Panel: Alanine Aminotransferase (ALT/SGPT) 13 U/L (16-63) L 01/23/23 13:04 Aspartate Amino Transf (AST/SGOT) 9 U/L (15-37) L 01/23/23 13:04 Coagulation Panel: No Data to Display Cardiac Panel: No Data to Display Arterial Blood Gas: No Data to Display Venous Blood Gas: No Data to Display Pancreas Panel: No Data to Display Thyroid Panel: Thyroid Stimulating Hormone (TSH) 1.56 uIU/mL (0.36-3.74) 01/23/23 13:04 Infectious Disease: No Data to Display Blood Cultures: No Data to Display Toxicology Panel: No Data to Display Anesthesia Assessment and Plan Anesthesia History Personal History: No History of Anesthesia Complications Family History: No Family History of Anesthesia Complications Exercise Tolerance Exercise Tolerance: Metabolic Equivalents<4 Cardiac & Pulmonary Exam Cardiac Exam: Normal S1/S2 Heart Sounds Pulmonary Exam: Clear Bilateral Breath Sounds Implantable Cardiac Device Does patient have a Pacemaker or an ICD?: No Airway Exam Known Difficult Airway: No Mallampati Class: 2 Mouth Opening: Normal (> 3cm) Thyromental Distance: Greater than 3 cm Neck Range of Motion: Limited ROM Neck Circumference: Normal Teeth Condition: Removable Dentures/Plates Upper and Removable Dentures/Plates Lower ASA Classification ASA Score: ASA 3 Emergency Case?: No NPO Status NPO Status: NPO Clears >2 hours, Solids >8 hours Anesthesia Plan Resuscitation Status: Full Code Anesthesia Technique: General Anesthesia Airway Planned: Natural Airway Monitors Used: Standard Monitors
[2023-02-17 07:27] VITALS: BMI 21.9
[2023-02-17] MEDS: Tetracaine 0.5% 4 ML BTL OS (08:35)
[2023-02-17] MEDS: Lidocaine 1% Pres-Free 5 ML VIAL (08:36)
[2023-02-17] MEDS: Phenylephrine/Lidocaine (15/10) MG/ML 1 ML VIAL (08:37)
[2023-02-17] MEDS: Balanced Salt Soln.-PLUS 500 ML BAG (08:37)
[2023-02-17] MEDS: Duovisc Viscoelastic System EACH 1 EACH (08:38)
[2023-02-17] MEDS: Povidone-Iodine Ophth 30 ML BTL (08:38)
[2023-02-17 08:56] VITALS: BP 99/52; PULSE 83; RESP 17; TEMP 36.2; O2SAT 95
--- NOTE | 2023-02-17 08:59 | ROE_ITS ---
Date of service: 02/17/23 Time of Service: 08:59 Operative Note Operative Note DATE OF PROCEDURE: 02/17/23 PRE-OP DIAGNOSIS: Nuclear cataract, left eye POST-OP DIAGNOSIS: same PROCEDURE: Cataract extraction using phacoemulsification with intraocular lens implant, left eye SURGEON: Fito Pond ANESTHESIA TYPE: Local By Surgeon and MAC Refer to Anesthesia Record PATHOLOGY: none sent COMPLICATIONS: None Patient was transported to: same day Patient's condition: stable Implants: Darryl and Darryl Tecnis Eyhance DIB00 Indications: Progressive decreased vision due to cataract, left eye Procedure Description: CATARACT SURGERY OPERATIVE REPORT PREOPERATIVE DIAGNOSIS: 1. Nuclear cataract, left eye POSTOPERATIVE DIAGNOSIS: Same OPERATION: 1. Cataract extraction using phacoemulsification with posterior chamber intraocular lens implant, left eye. IOL: IOL Engineering Supplies Sales/Model: Darryl & Darryl Tecnis Eyhance DIB00 IOL Power: + 20.0 diopters IOL Serial Number: [id number] Optic Diameter: 6.0 mm Haptic/Overall Diameter: 13.0 mm PHACO INFO: Tomoohilove Vision System with OZil and Active Fluidics Cumulative Dispersed Energy (CDE): 17.59 seconds SURGEON: Fito Pond MD, ODILIA ANESTHESIA: Monitored A [facility] (MAC), with local sub-tenon's anesthetic infiltration COMPLICATIONS: None SPECIMENS: None INDICATIONS FOR PROCEDURE: The patient is a 72-year-old gentleman with history of diminished visual acuity in his left eye secondary to the development of dense nuclear cataract. He has previously undergone cataract surgery in the right eye and is doing well postoperatively. He now presents for cataract surgery in the left eye. PROCEDURE: The correct surgical eye was identified and marked as the left eye and the pupil was dilated in the preoperative area using mydriatics and cycloplegics. The dilated pupil size was 6.0 mm. Oral sedation was administered in the form of an Imprimis MKO Melt (midazolam 3mg/ketamine 25mg/ondansetron 2mg). The patient was brought to the operating room where cardiopulmonary monitoring was instituted and surgical time-out was performed, confirming the correct operative eye and IOL power. Topical anesthesia was administered and ophthalmic povidone-iodine 5% was instilled into the conjunctival fornices. Lidocaine gel was applied to the cornea and the kimani-ocular area was prepped with Betadine 10% solution and draped in the usual sterile fashion for intraocular surgery, including an aperture drape. A Tegaderm transparent film dressing was cut in half and used to cover the lashes and lid margins. Care was taken to sequester the lashes and lid margins under the Tegaderm dressing. A lid speculum was placed between the lids of the operative eye and the Tom LuxOR Revalia operating microscope was maneuvered into position. Nadeem scissors were then used to make a conjunctival buttonhole approximately 6mm posterior to the limbus in the inferonasal quadrant. Blunt dissection was carried out to expose bare sclera, and a blunt-tipped sub-tenon?s anesthesia cannula was introduced and passed posteriorly along the globe where non- preserved plain lidocaine was injected into posterior sub-Tenon?s space. A sideport knife was used to make a paracentesis port superiorly/superiortemporally. Intraocular phenylephrine/lidocaine was injected int the anterior chamber.. The anterior chamber was filled with viscoelastic. A keratome knife was used to construct a 2-plane near-clear corneal tunnel extending 2.0mm into clear cornea temporally. A flap was raised on the anterior capsule and capsulorhexis forceps were used to complete a continuous curvilinear capsulorhexis of 5.0 mm. Balanced salt solution was then used to perform cortical cleaving hydrodissection and nuclear hydrodelineation until the lens could be freely rotated within the capsular bag. The lens nucleus was then disassembled and removed within the capsular bag and iris plane using phacoemulsification. Residual cortical material was removed using the 45-degree angled silicone I/A tip with 0.3mm port. The posterior capsule was carefully polished to remove as much residual lens epithelial cells as safely possible. The capsular bag was then inflated and the anterior chamber deepened with viscoelastic. The lens implant described above was inserted into the capsular bag using the Darryl and Darryl Simplicity pre-loaded injector. . A Kuglen hook was used to dial the IOL into position. Residual viscoelastic was then removed first from posterior to the IOL, then from the anterior chamber using the I/A handpiece. The lens implant was noted to center nicely within the capsular bag. The incisions were stromally hydrated, and the anterior chamber was reformed using BSS. Then 0.5cc of moxifloxacin 1.0mg/ml were injected into the capsular bag and anterior chamber. The incisions were checked with a Weck spear and found to be secure. Several drops of ophthalmic povidone-iodine 5% were then applied to the eye followed by two drops of Imprimis combination prednisolone/moxifloxacin/nepafenac solution. The drapes were removed and a clear plastic protective eye shield was placed over the eye. The patient was then returned to Same Day Surgery in stable condition.
--- NOTE | 2023-02-17 08:59 | W.PM.DSUDISC ---
Date of service: 02/17/23 Time of Service: 08:59 Discharge Plan Disposition Patient Disposition: Home Discharge Details Attending Provider: Fito Pond Primary Care Provider: Haleigh Aguirre Home Meds and New Rx's Prescriptions: No Action acetaminophen 325 mg capsule 325 mg PO Q4H PRN amlodipine 10 mg tablet 10 mg PO DAILY Qty: 90 3RF metoprolol succinate 50 mg tablet extended release 24 hr 50 mg PO DAILY Qty: 90 3RF lorazepam 0.5 mg tablet 0.5 mg PO .1-2 tabs prior MRI PRN docusate sodium [Colace] 100 mg capsule 100 mg PO TID PRN (Reason: x 10 days) sennosides [senna] 8.6 mg tablet 17.2 mg PO DAILY Discharge Instructions Stand Alone Forms: Post-op Topical Cataract, Anneliese Mckeon (DSU) Discharge Orders Discharge Orders: Discharge Order (Routine); Ordered 02/17/23 Ordered By: Fito Pond DS: Diagnosis Discharge Diagnosis (1) Nuclear age-related cataract, left eye: Status: Resolved
--- NOTE | 2023-02-17 09:24 | W.ANESPOSTOP ---
Postoperative Evaluation Date, Time and Location Date Performed: 02/17/23 Time Performed: 09:10 Patient Location: Day Surgery Unit Vital Signs Most Recent Imported Vital Signs: Most Recent Vital Signs Temp Pulse Resp BP Pulse Ox 36.2 C L 83 17 99/52 L 95 02/17/23 08:56 02/17/23 08:56 02/17/23 08:56 02/17/23 08:56 02/17/23 08:56 Pain Score Most Recent Pain Score: Most Recent Pain Score Pain Level 0 02/17/23 08:56 Assessment Mental Status: Awake (Alert & Oriented to Patient Baseline) Airway and Respiratory Function: Patent airway with normal (patient baseline) respiratory exam Cardiovascular Function: Hemodynamically Stable Hydration Status: Adequately Hydrated Nausea & Vomiting: No Nausea or Vomiting Pain: Pt. Denies Any Pain Peripheral Nerve Block: Patient did not receive a nerve block
[2023-02-17 09:30] VITALS: BP 98/54; PULSE 82; RESP 17; TEMP 36.2; O2SAT 94
== END 2023-02-17 09:35 | disposition home or self-care (01) ==
LOC: SUR 07:00
PROVIDERS: PCP Nurse Practitioner; Visit Provider Ophthalmology
PROC: (CPT 66984; principal; 2023-02-17 08:30)
DX: H25.12 Age-related nuclear cataract, left eye (principal); Z98.41 Cataract extraction status, right eye; I10 Essential (primary) hypertension
CPT/HCPCS: 66984; V2632

== ENCOUNTER 2023-02-20 14:07 | Outpatient (CLI) | payer MEDICARE, SELFPAY ==
[2023-02-20 16:14] LABS: Abs Immature Grans 0.06 10^3/uL (0.0-0.06); Absolute Basophil Count 0.04 10^3/uL (0.0-0.2); Absolute Eosinophil Count 0.09 10^3/uL (0.0-0.7); Absolute Lymphocyte Count 0.95 10^3/uL (1.2-3.4); Absolute Monocyte Count 0.88 10^3/uL (0.1-0.8); Basophils % 0.4; HCT 30.6 % (40.0-50.0); Immature Grans % 0.7; Lymphocytes % 10.3; MCH 31.3 pg (27.0-33.0); MCHC 32.7 % (32.0-36.0); MCV 96 fL (80-95); MPV 11.2 fL (8.0-11.0); Monocytes % 9.5; Neutrophils % 78.1; Platelet Count 319 10^3/uL (130-400); RDW 14.6 % (11.8-14.1); RDW-SD 50.9 fL; WBC 9.22 10^3/uL (4.4-10.8)
[2023-02-20 17:00] LABS: ALT 17 U/L (16-63); AST 14 U/L (15-37); Albumin 1.9 g/dL (3.4-5.0); Alkaline Phosphatase 324 U/L (46-116); Anion Gap 8.3 mmol/L (3-11); BUN 26 mg/dL (7-18); Bilirubin, Total 0.2 mg/dL (0.2-1.0); CO2 27.7 mmol/L (21.0-32.0); CREATININE 1.7 mg/dL (0.70-1.30); Calcium 8.4 mg/dL (8.5-10.1); Chloride 104 mmol/L (98-107); Estimated GFR 42.57 (mL/min/1.73m2); FREE T4 1.37 ng/dL (0.76-1.46); Glucose 125 mg/dL (74-106); Magnesium 2.6 mg/dL (1.8-2.4); Potassium 4.1 mmol/L (3.5-5.1); Sodium 140 mmol/L (136-145); TSH 2.12 uIU/mL (0.36-3.74); Total Protein 6.4 g/dL (6.4-8.2)
== END 2023-02-20 14:08 | disposition home or self-care (01) ==
PROVIDERS: PCP Nurse Practitioner; Visit Provider Internal Medicine Medical Oncology
DX: C34.31 Malignant neoplasm of lower lobe, right bronchus or lung (principal); Z79.899 Other long term (current) drug therapy
CPT/HCPCS: 36415; 80053; 83735; 84439; 84443; 85025

== ENCOUNTER 2023-03-13 12:45 | Outpatient (CLI) | payer MEDICARE, SELFPAY ==
[2023-03-13 07:43] LABS: Abs Immature Grans 0.06 10^3/uL (0.0-0.06); Absolute Basophil Count 0.06 10^3/uL (0.0-0.2); Absolute Eosinophil Count 0.02 10^3/uL (0.0-0.7); Absolute Lymphocyte Count 1.02 10^3/uL (1.2-3.4); Absolute Monocyte Count 0.83 10^3/uL (0.1-0.8); Absolute Neutrophil Count 7.01 10^3/uL (1.2-6.7); Basophils % 0.7; Eosinophils % 0.2; HCT 27.7 % (40.0-50.0); HGB 8.8 g/dL (13.5-17.5); Immature Grans % 0.7; Lymphocytes % 11.3; MCH 29.8 pg (27.0-33.0); MCHC 31.8 % (32.0-36.0); MCV 94 fL (80-95); MPV 9.9 fL (8.0-11.0); Monocytes % 9.2; Neutrophils % 77.9; Platelet Count 307 10^3/uL (130-400); RBC 2.95 10^6/uL (4.36-5.78); RDW 15.1 % (11.8-14.1); RDW-SD 51.9 fL
[2023-03-13 08:08] LABS: ALT 14 U/L (16-63); AST 13 U/L (15-37); Albumin 1.8 g/dL (3.4-5.0); Alkaline Phosphatase 110 U/L (46-116); Anion Gap 7.2 mmol/L (3-11); BUN 15 mg/dL (7-18); Bilirubin, Total 0.3 mg/dL (0.2-1.0); CO2 25.8 mmol/L (21.0-32.0); CREATININE 1.3 mg/dL (0.70-1.30); Calcium 8.6 mg/dL (8.5-10.1); Chloride 110 mmol/L (98-107); Estimated GFR 58.73 (mL/min/1.73m2); FREE T4 1.39 ng/dL (0.76-1.46); Glucose 103 mg/dL (74-106); Magnesium 1.8 mg/dL (1.8-2.4); Potassium 4.1 mmol/L (3.5-5.1); Sodium 143 mmol/L (136-145); TSH 2.53 uIU/mL (0.36-3.74)
== END 2023-03-13 12:46 | disposition home or self-care (01) ==
LOC: LBO 12:46
PROVIDERS: PCP Nurse Practitioner; Visit Provider Nurse Practitioner Family
DX: C34.91 Malignant neoplasm of unspecified part of right bronchus or lung (principal); Z79.899 Other long term (current) drug therapy
CPT/HCPCS: 36415; 80053; 83735; 84439; 84443; 85025

== ENCOUNTER 2023-03-30 00:31 | Outpatient (CLI) | payer MEDICARE, SELFPAY ==
--- NOTE | 2023-03-30 | DI.CT_ITS ---
Exam(s) CT CHEST/ABD/PEL W EXAM: CT CHEST/ABD/PEL W CLINICAL HISTORY: RLL LUNG CA,C34.31,SECONDARY BONE,C79.51,S/P THERAPY,ASSESS TREATMENT RESPO TECHNIQUE: Imaging Protocol: Axial computed tomography images with coronal and sagittal reformatted images were created and reviewed CONTRAST MATERIAL: Intravenous: Omnipaque 350 contrast volume:100 mL Oral: Yes COMPARISON: CT CT CHEST W from 11/03/2022 FINDINGS: CHEST: Tracheobronchial tree: There is debris seen within the bronchus to the right lower lobe. Pulmonary parenchyma: Moderate emphysematous changes in the lungs. There is a moderate left pleural effusion and a small right pleural effusion. There is now marked thickening of the right parietal an d diaphragmatic pleura. It has a nodular contour. There is diffuse interstitial thickening in the r ight middle lobe and the right lower lobe. Visualized thyroid gland: Unremarkable. Mediastinum and Monika: No dominant adenopathy or fluid collection. The esophagus is unremarkable. Pleura: No pneumothorax. Heart: The heart is not dilated. Marked coronary artery calcification. There is a moderate pericardi al effusion. Pulmonary arteries: No pulmonary emboli are identified. Aorta: Thoracic aorta non-dilated. Atherosclerosis. No evidence of dissection. Lymph nodes: Within normal limits. Soft tissues: Unremarkable. Bones:Within normal limits for the patient's age. No aggressive osseous lesions. ABDOMEN: Liver: Normal density. There are at least 2 peripherally enhancing lesions in the right lobe of the l iver. The largest measures 1 cm. It is best appreciated on the arterial images. Portal, Superior Mesenteric, and Splenic Veins: Unremarkable. Gallbladder and Biliary Tract: No radiodense calculus or dilation. Pancreas: Normal density, no abnormal calcifications or inflammatory process. Spleen: Splenic calcified granuloma are present. Adrenals: No masses seen. Kidneys: Normal size, contour and axis. Bilateral nephrolithiasis. No hydronephrosis. No masses see n. Abdominal Aorta: Abdominal portion non-dilated. Atherosclerosis. Bowel: No obstruction or bowel wall thickening. There are few scattered diverticula but no evidence o f diverticulitis. No evidence of acute appendicitis. Peritoneal Cavity: There is a small amount of ascites in the pelvis. No free air. Lymph Nodes: Within normal limits. Bones: Within normal limits for the patient's age. No aggressive osseous lesions. Soft Tissues: Unremarkable. PELVIS: Bladder: Symmetric distention, no gross wall thickening. Reproductive Organs: Prostate gland is mildly enlarged. Lymph Nodes: Within normal limits. Bones: Within normal limits. IMPRESSION: 1. In the right hemithorax, there is diffuse interstitial thickening in the right middle and right lo wer lobes. There is also marked nodular thickening of the pleural surface in the right lung base. T hese likely reflect metastatic disease. 2. No evidence of pulmonary embolism, thoracic aortic dissection or aneurysm. 3. Moderate pericardial effusion. 4. Hepatic masses suspicious for metastatic disease. 5. Small amount of pelvic ascites. RADIATION DOSE DELIVERED: 1,063.05mGy.cm Total DLP DATA REPOSITORY: All CT scans at this facility are submitted to the National Radiology Data Registry (NRDR) Dose Index Registry (DIR) with the [employer] (A[employer]). RADIATION OPTIMIZATION: All CT scans at this facility use at least one of these dose optimization te chniques: automated exposure control; mA and/or kV adjustment per patient size (includes targeted exa ms where dose is matched to clinical indication); or iterative reconstruction.
[2023-03-30] MEDS: Barium Sulfate 2% W/V-Creamy Vanilla Smoothie 450 ML BTL 900 ML PO (11:14)
[2023-03-30] MEDS: Barium Sulfate 2% W/V-Berry Smoothie 450 ML BTL 900 ML PO (11:49)
[2023-03-30] MEDS: Omnipaque 350 MG/ML 500 ML BTL-Imaging package IJ (12:58)
[2023-03-30] MEDS: Normal Saline - Diluent 50 ML VIAL IJ (12:59)
[2023-03-30] MEDS: Normal Saline Flush 10 ML SYR IVP (13:00)
== END 2023-03-30 00:51 ==
LOC: DI 00:31
PROVIDERS: PCP Nurse Practitioner; Visit Provider Nurse Practitioner Family
DX: C79.51 Secondary malignant neoplasm of bone (principal); C34.31 Malignant neoplasm of lower lobe, right bronchus or lung
CPT/HCPCS: 74177; 71260

== ENCOUNTER 2023-04-03 03:09 | Outpatient (CLI) | payer MEDICARE, SELFPAY ==
[2023-04-03 07:36] LABS: Abs Immature Grans 0.04 10^3/uL (0.0-0.06); Absolute Basophil Count 0.07 10^3/uL (0.0-0.2); Absolute Eosinophil Count 0.05 10^3/uL (0.0-0.7); Absolute Lymphocyte Count 1.12 10^3/uL (1.2-3.4); Absolute Monocyte Count 0.91 10^3/uL (0.1-0.8); Absolute Neutrophil Count 6.92 10^3/uL (1.2-6.7); Basophils % 0.8; Eosinophils % 0.5; HCT 27.1 % (40.0-50.0); HGB 8.5 g/dL (13.5-17.5); Immature Grans % 0.4; Lymphocytes % 12.3; MCH 28.9 pg (27.0-33.0); MCHC 31.4 % (32.0-36.0); MCV 92 fL (80-95); MPV 9.6 fL (8.0-11.0); Platelet Count 313 10^3/uL (130-400); RBC 2.94 10^6/uL (4.36-5.78); RDW 15.9 % (11.8-14.1); RDW-SD 53.1 fL; WBC 9.11 10^3/uL (4.4-10.8)
[2023-04-03 07:59] LABS: ALT 12 U/L (16-63); AST 13 U/L (15-37); Albumin 1.9 g/dL (3.4-5.0); Alkaline Phosphatase 97 U/L (46-116); Anion Gap 6.2 mmol/L (3-11); BUN 23 mg/dL (7-18); Bilirubin, Total 0.2 mg/dL (0.2-1.0); CO2 25.8 mmol/L (21.0-32.0); CREATININE 1.7 mg/dL (0.70-1.30); Calcium 8.6 mg/dL (8.5-10.1); Chloride 104 mmol/L (98-107); Estimated GFR 42.57 (mL/min/1.73m2); FREE T4 1.24 ng/dL (0.76-1.46); Glucose 98 mg/dL (74-106); Magnesium 2.1 mg/dL (1.8-2.4); Potassium 5.3 mmol/L (3.5-5.1); Sodium 136 mmol/L (136-145); TSH 4.89 uIU/mL (0.36-3.74); Total Protein 6.2 g/dL (6.4-8.2)
== END 2023-04-03 03:10 | disposition home or self-care (01) ==
PROVIDERS: PCP Nurse Practitioner; Visit Provider Nurse Practitioner Family
DX: Z79.899 Other long term (current) drug therapy (principal); C34.31 Malignant neoplasm of lower lobe, right bronchus or lung
CPT/HCPCS: 36415; 80053; 83735; 84439; 84443; 85025

== ENCOUNTER 2023-05-01 03:36 | Outpatient (CLI) | payer MEDICARE, SELFPAY ==
[2023-05-01 07:41] LABS: Abs Immature Grans 0.03 10^3/uL (0.0-0.06); Absolute Basophil Count 0.05 10^3/uL (0.0-0.2); Absolute Eosinophil Count 0.12 10^3/uL (0.0-0.7); Absolute Lymphocyte Count 1.12 10^3/uL (1.2-3.4); Absolute Monocyte Count 1.11 10^3/uL (0.1-0.8); Absolute Neutrophil Count 6.67 10^3/uL (1.2-6.7); Basophils % 0.5; Eosinophils % 1.3; HCT 25.1 % (40.0-50.0); Immature Grans % 0.3; Lymphocytes % 12.3; MCH 28.3 pg (27.0-33.0); MCHC 31.9 % (32.0-36.0); MCV 89 fL (80-95); MPV 9.8 fL (8.0-11.0); Monocytes % 12.2; Neutrophils % 73.4; RBC 2.83 10^6/uL (4.36-5.78); RDW 16.9 % (11.8-14.1); RDW-SD 54.5 fL
[2023-05-01 07:51] LABS: Diff Comment Diff Reviewed; Hypochromasia 2+; Platelet Count 318 10^3/uL (130-400); Polychromasia Present
[2023-05-01 08:05] LABS: ALT 9 U/L (16-63); AST 9 U/L (15-37); Albumin 1.8 g/dL (3.4-5.0); Alkaline Phosphatase 81 U/L (46-116); Anion Gap 7.2 mmol/L (3-11); BUN 26 mg/dL (7-18); Bilirubin, Total 0.3 mg/dL (0.2-1.0); CO2 27.8 mmol/L (21.0-32.0); CREATININE 1.4 mg/dL (0.70-1.30); Calcium 8.8 mg/dL (8.5-10.1); Chloride 100 mmol/L (98-107); Estimated GFR 53.74 (mL/min/1.73m2); FREE T4 1.62 ng/dL (0.76-1.46); Glucose 108 mg/dL (74-106); Magnesium 1.9 mg/dL (1.8-2.4); Potassium 4.6 mmol/L (3.5-5.1); Sodium 135 mmol/L (136-145); TSH 2.77 uIU/mL (0.36-3.74); Total Protein 6.4 g/dL (6.4-8.2)
== END 2023-05-01 03:37 | disposition home or self-care (01) ==
LOC: LBO 03:36
PROVIDERS: PCP Nurse Practitioner; Visit Provider Internal Medicine Medical Oncology
DX: C34.31 Malignant neoplasm of lower lobe, right bronchus or lung (principal); Z79.899 Other long term (current) drug therapy
CPT/HCPCS: 36415; 80053; 83735; 84439; 84443; 85025

== ENCOUNTER 2023-05-24 08:38 | Outpatient (CLI) | payer MEDICARE, SELFPAY ==
[2023-05-24 08:19] LABS: Abs Immature Grans 0.05 10^3/uL (0.0-0.06); Absolute Basophil Count 0.07 10^3/uL (0.0-0.2); Absolute Eosinophil Count 0.02 10^3/uL (0.0-0.7); Absolute Lymphocyte Count 1.06 10^3/uL (1.2-3.4); Absolute Monocyte Count 1.02 10^3/uL (0.1-0.8); Absolute Neutrophil Count 7.87 10^3/uL (1.2-6.7); Basophils % 0.7; Eosinophils % 0.2; HCT 23.2 % (40.0-50.0); HGB 7.2 g/dL (13.5-17.5); Immature Grans % 0.5; Lymphocytes % 10.5; MCH 27.2 pg (27.0-33.0); MCV 88 fL (80-95); MPV 9.8 fL (8.0-11.0); Monocytes % 10.1; Platelet Count 339 10^3/uL (130-400); RBC 2.65 10^6/uL (4.36-5.78); RDW-SD 55.5 fL; WBC 10.09 10^3/uL (4.4-10.8)
[2023-05-24 08:43] LABS: ALT 9 U/L (16-63); AST 8 U/L (15-37); Albumin 1.7 g/dL (3.4-5.0); Alkaline Phosphatase 79 U/L (46-116); Anion Gap 7.6 mmol/L (3-11); BUN 28 mg/dL (7-18); Bilirubin, Total 0.3 mg/dL (0.2-1.0); CO2 27.4 mmol/L (21.0-32.0); CREATININE 1.8 mg/dL (0.70-1.30); Calcium 8.9 mg/dL (8.5-10.1); Chloride 104 mmol/L (98-107); Estimated GFR 39.75 (mL/min/1.73m2); FREE T4 1.51 ng/dL (0.76-1.46); Glucose 119 mg/dL (74-106); Magnesium 2.1 mg/dL (1.8-2.4); Potassium 4.7 mmol/L (3.5-5.1); Sodium 139 mmol/L (136-145); TSH 2.85 uIU/mL (0.36-3.74); Total Protein 6.4 g/dL (6.4-8.2)
== END 2023-05-24 08:39 | disposition home or self-care (01) ==
PROVIDERS: Internal Medicine Medical Oncology; PCP Nurse Practitioner; Visit Provider Nurse Practitioner Family
DX: C34.31 Malignant neoplasm of lower lobe, right bronchus or lung (principal); Z79.899 Other long term (current) drug therapy
CPT/HCPCS: 36415; 80053; 83735; 84439; 84443; 85025

== ENCOUNTER 2023-05-24 09:36 | Outpatient (RCR) | payer MEDICARE, SELFPAY ==
[2023-05-24] VITALS (9 sets, daily range): BP systolic 118–143; BP diastolic 70–79; PULSE 86–103; RESP 16–18; TEMP 36.3–36.7; O2SAT 96–99
== END 2023-05-26 23:59 | disposition home or self-care (01) ==
LOC: INF 09:36
PROVIDERS: PCP Nurse Practitioner; Visit Provider Internal Medicine Medical Oncology
DX: C34.90 Malignant neoplasm of unspecified part of unspecified bronchus or lung (principal); D64.9 Anemia, unspecified
CPT/HCPCS: 36415; 36430; 86850; 86900; 86901; 86920; P9016

== ENCOUNTER 2023-05-31 02:39 | Outpatient (CLI) | payer MEDICARE, SELFPAY ==
[2023-05-31 10:51] LABS: Abs Immature Grans 0.04 10^3/uL (0.0-0.06); Absolute Basophil Count 0.05 10^3/uL (0.0-0.2); Absolute Eosinophil Count 0.12 10^3/uL (0.0-0.7); Absolute Lymphocyte Count 0.83 10^3/uL (1.2-3.4); Absolute Monocyte Count 0.88 10^3/uL (0.1-0.8); Absolute Neutrophil Count 5.77 10^3/uL (1.2-6.7); Basophils % 0.7; Eosinophils % 1.6; HCT 32.1 % (40.0-50.0); Immature Grans % 0.5; Lymphocytes % 10.8; MCH 26.9 pg (27.0-33.0); MCHC 31.2 % (32.0-36.0); MCV 86 fL (80-95); MPV 10.7 fL (8.0-11.0); Monocytes % 11.4; Platelet Count 297 10^3/uL (130-400); RBC 3.72 10^6/uL (4.36-5.78); RDW 17.5 % (11.8-14.1); RDW-SD 55.1 fL; WBC 7.69 10^3/uL (4.4-10.8)
[2023-05-31 11:10] LABS: ALT 7 U/L (16-63); AST 10 U/L (15-37); Albumin 1.6 g/dL (3.4-5.0); Alkaline Phosphatase 77 U/L (46-116); Anion Gap 8.2 mmol/L (3-11); BUN 29 mg/dL (7-18); Bilirubin, Total 0.4 mg/dL (0.2-1.0); CO2 26.8 mmol/L (21.0-32.0); CREATININE 1.3 mg/dL (0.70-1.30); Calcium 8.7 mg/dL (8.5-10.1); Chloride 101 mmol/L (98-107); Estimated GFR 58.73 (mL/min/1.73m2); FREE T4 1.57 ng/dL (0.76-1.46); Glucose 109 mg/dL (74-106); Magnesium 2.1 mg/dL (1.8-2.4); Potassium 5.1 mmol/L (3.5-5.1); Sodium 136 mmol/L (136-145); TSH 2.64 uIU/mL (0.36-3.74); Total Protein 6.3 g/dL (6.4-8.2)
== END 2023-05-31 02:40 | disposition home or self-care (01) ==
PROVIDERS: PCP Nurse Practitioner; Visit Provider Nurse Practitioner Family
DX: Z79.899 Other long term (current) drug therapy (principal); C34.31 Malignant neoplasm of lower lobe, right bronchus or lung
CPT/HCPCS: 36415; 80053; 83735; 84439; 84443; 85025

== ENCOUNTER 2023-06-19 16:49 | Inpatient (IN) | payer MEDICARE, SELFPAY ==
[2023-06-19] VITALS (22 sets, daily range): BP systolic 111–135; BP diastolic 40–79; PULSE 98–115; RESP 1–25; TEMP 36.6–36.8; O2SAT 85–100
--- NOTE | 2023-06-19 17:00 | RT.EKG_ITS ---
APPROVED REPORT Exam: Resting ECG Reason for Exam: SOB Patient Location: E HR:118 bpm ECG Measurements Heart Rate 118 AXIS IN 157 P 38 QRSd 68 QRS 45 QT 323 T [id number] QTc 453 Conclusion Sinus tachycardia...rate> 99 Low voltage, extremity leads...all extremity leads <0.5mV
--- NOTE | 2023-06-19 17:24 | ED.GENADUL_ITS ---
Discharge Plan Disposition Patient Disposition: Admit to [facility] Condition: Poor Discharge Details Chief Complaint: SOB Clinical Impression: Bilateral lung cancer, Anemia, Breath shortness, Acute pericardial effusion, Pleural effusion Admit Date/Time: 06/19/23 20:40 Admit Provider: Jessenia Parrish Attending Provider: Jessenia Parrish Primary Care Provider: Haleigh Aguirre ED Provider: Martha Gonzalez Home Meds and New Rx's Prescriptions: No Action acetaminophen 325 mg capsule 325 mg PO Q4H PRN amlodipine 10 mg tablet 10 mg PO DAILY Qty: 90 3RF Hold Instructions: 05/01/23 On HOLD per [facility]. Patient Comments: pt states he does not take metoprolol succinate 50 mg tablet extended release 24 hr 50 mg PO DAILY Qty: 90 3RF lorazepam 0.5 mg tablet 0.5 mg PO .1-2 tabs prior MRI PRN docusate sodium [Colace] 100 mg capsule 100 mg PO TID PRN (Reason: x 10 days) sennosides [senna] 8.6 mg tablet 17.2 mg PO DAILY loperamide [Imodium A-D] PO PRN Rx Instructions: as directed calcium 250 mg Tablet 250 mg PO BID Discharge Data Discharge Date/Time-TO BE ENTERED AT DEPARTURE: 06/19/23 21:38 Medical Decision Making Patient is a pleasant 72-year-old male brought in by his brother with chief complaint of weakness, anorexia, shortness of breath. Patient has past medical history significant for right-sided lung cancer with metastasis to the left lung as well as the bone. He reports these are inoperable. He is receiving chemotherapy. Last received his dosing on the third of this month and states that typically he remains ill for approximately 1 week. However, this month at the symptoms have continued. He notes that over the past few days his shortness of breath is significantly increased. States that he does have some chest discomfort but this is his baseline and associated with deep and heavy breathing. He does report that he has a history of COPD associated with smoking, patient still is an active smoker. Also has a history of anemia, hypertension, pericardial effusion, pleural effusion. Reports that he has had the pericardial effusion drained x 2 at [facility] [place] On exam, patient appears acute on chronically ill. He is quite thin barrel chested, leaning forward and tripoding as well as been pursed lip breathing. He has diminished lung sounds on the right, crackles throughout, L>R. Tachycardic but regular rhythm. No abdominal pain/swelling. 2+ BLE edema, no calf pain. concerned for progression of disease, ACS, PE, pericardial tamponade, infection, anemia vs. other. will obtain bedside US, ECG, labs and CXR. New onsetl BLE edema and SOB has me concerned for CHF, will begin on Lasix. ECG reviewed by Dr. Espana. Low voltage but otherwise without abnormality. Bedside US preformed by Dr. Espana, while pericardial effusion is noted not evidence of tamponade at this time. RT evaluated th patient, he was given neb and lasix, reports feeling somewhat improved. Labs reviewed. WBC 13.2, stable anemia, normal platelet count. D-dimer elevated, will move forward with CTA. pH WNL, bicarb slightly elevated with normal CO2. Creatinine slightly eleated above baseline but GFR still allows for CTA. BNP elevated at >2000. Troponin WNL. CTA reviewed by radiologist: Limited due to respiratory motion artifact Pulmonary arteries: No pulmonary emboli. Aorta: No aortic aneurysm. No aortic dissection. Lungs:? Moderate emphysema. Diffuse nodular circumferential pleural thickening on the right in keeping with history of neoplasm.? Right upper lobe nodules measuring up to 5 mm noted.? There is narrowing of the right distal mainstem bronchus. Interstitial opacities on the right Pleural spaces:? Small left and minimal right pleural effusions No pneumothorax Heart: No cardiomegaly.? Large pericardial effusion. Lymph nodes:? Mildly enlarged paraesophageal lymph nodes and abnormal soft tissue in the posterior mediastinum. Bones/joints: No acute fracture.? Heterogeneous appearance to the osseous structures with multiple lucencies Soft tissues:? Anasarca noted Abnormal nodularity along the inferior margin of the right diaphragmatic grant overlying the liver IMPRESSION: No pulmonary emboli detected Diffuse neoplastic/metastatic involvement in the right pleural space/right lung Left greater than right pleural effusions Large pericardial effusion Osseous metastatic disease not excluded Had lengthy chat with patient and brother regarding findings on imaging. He feels so poorly at this time, unsure if he wants to go through any further treatments. States that he has his advanced directives at home but has not yet filled it out. He expresses that he wants to be a DNR/DNI, has discussed with his family. He agrees to admission for continued diuresis and PT evaluation. He is will for palliative care consult. Consulted with Dr. Parrish, she agrees to admission. [facility] General Date/Time Provider Initiated Documentation: 06/19/23 17:00 . Limitations to Documentation: no limitations . Information obtained by: patient, family (brother, Spencer) and RN notes reviewed . History of Present Illness 72 year old M presents to the emergency department with the chief complaint of weakness, malaise, SOB, BLE edema, described as moderate (has some of these chronically but signficantly increased), Quality is described as other (not endorsing pain at this time), and is localized to the chest and lower extremity. Patient started experiencing this month(s) (1) and it has been constant. No relieving factors improve symptom(s), Other factors that worsen symptoms (associates with chemo dosing one month ago) . Patient notes cough (chronic and unchanged, no sputum production), loss of appetite, malaise, shortness of breath and weakness; denies chest pain, diaphoresis, fever/chills, headaches, nausea/vomiting, rash and syncope. Patient did receive the following treatments prior to arrival, none Related Data Home Medications Medication Instructions Recorded Confirmed acetaminophen 325 mg capsule 325 mg PO Q4H PRN 04/20/21 06/19/23 amlodipine 10 mg tablet 10 mg PO DAILY #90 tabs 11/14/22 02/17/23 metoprolol succinate 50 mg 50 mg PO DAILY #90 tabs 11/14/22 06/19/23 tablet,extended release 24 hr docusate sodium 100 mg capsule 100 mg PO TID PRN x 10 days 12/23/22 06/19/23 (Colace) lorazepam 0.5 mg tablet 0.5 mg PO .1-2 tabs prior MRI PRN 12/23/22 06/19/23 sennosides 8.6 mg tablet (senna) 17.2 mg PO DAILY conctipation 12/23/22 06/19/23 loperamide [Imodium A-D] PO PRN 05/31/23 calcium 250 mg tablet 250 mg PO BID 06/19/23 06/19/23 Previous Rx's Medication Instructions Recorded amlodipine 10 mg tablet 10 mg PO DAILY #90 tabs 11/14/22 metoprolol succinate 50 mg 50 mg PO DAILY #90 tabs 11/14/22 tablet,extended release 24 hr Allergies Allergy/AdvReac Type Severity Reaction Status Date / Time No Known Allergies Allergy Verified 06/19/23 17:00 General Stated Complaint: SOB AILYN: 3 Review of Systems Constitutional Constitutional: Reports as per HPI, Denies chills, Denies fever(s) and Denies headache(s) ENT Ears, Nose, Mouth, and Throat: Denies dizziness and Denies headache(s) Cardiovascular Cardiovascular: Reports as per HPI Respiratory Respiratory: Reports as per HPI, Denies chest congestion and Denies pain with cough Gastrointestinal Gastrointestinal: Reports as per HPI, Denies abdominal pain, Denies nausea and D enies vomiting Musculoskeletal Musculoskeletal: Reports as per HPI and Denies back pain Integumentary/Breasts Skin/Breast: Reports as per HPI and Denies rash Neurologic Neurologic: Reports as per HPI, Denies dizziness and Denies headache(s) PFSH All Active Problems (Updated 06/19/23 @ 21:39 by RANDAL Hicks) Bilateral lung cancer (Acute) Anemia (Chronic) Breath shortness (Acute) Acute pericardial effusion (Acute) Pleural effusion (Acute) Anemia (Chronic ~04/2023) 05/24/23 [facility] Hem/Onc Macular degeneration (senile) of retina (Acute) Poliomyelitis (Acute) at 5 years of age Encounter to establish care (Acute) Elevated blood pressure reading in office with diagnosis of hypertension (Acute) HTN (hypertension) with goal to be determined (Acute) IFG (impaired fasting glucose) (Acute) Colonoscopy refused (Acute) Failure to attend screening for abdominal aortic aneurysm (AAA) (Acute) Hyponatremia (Acute) Hyperkalemia (Acute) Pre-op evaluation (Acute) Abnormal blood chemistry (Acute) Hyponatremia (Acute) Screening for prostate cancer (Acute) Elevated PSA (Acute) Hyperkalemia (Acute) Hypertension (Chronic) Nicotine dependence, cigarettes, uncomplicated (Acute) Pulmonary nodule (Acute) Metastatic lung cancer (metastasis from lung to other site) (Acute) 03/07/[place] [place]; [id number] lung cancer stage IV with osseous metastases. 11/03/22 Restaging scan, on chemo 02/20/23 [facility] Hem/Onc - on chemo Adenopathy, hilar (Acute) 01/18/22-[facility] [place] pulmonology consult note Mediastinal adenopathy (Acute) 01/18/22-[facility] [place] pulmonology consult note S/P bronchoscopy (Acute) 01/25/22 procedure note-[facility] [place] interventional pulmonology. Successful flexible bronchoscopy and EBUS-TBNA (5 sites) Brady Toure MD Secondary malignant neoplasm of bone (Acute) 02/10/22-[facility] [place] Hem/Onc note; Paul Law MD Anemia due to antineoplastic chemotherapy (Acute ~04/2022) 05/02/22 [facility] Hem/Onc Abnormal blood level of magnesium (Acute) 05/02/22 [facility] Hem/Onc - started on magnesium Elevated serum creatinine (Acute ~09/2022) 10/17/22 [facility] Hem/Onc,pemetrex stopped. Effusion, pericardium (Acute ~11/2022) 12/05/22 [facility] Hem/Onc Pleural effusion, malignant (Acute) 01/03/23 Thoracic Recurrent pleural effusion on right (Acute) 01/03/23 Thoracic Surgery Medical History Abnormal chest CT Encounter for screening for lung cancer Smoker Surgical History (Updated 02/17/23 @ 08:59 by Fito Pond MD) History of bronchoscopy (~12/19/22) 12/19/22 DH 01/05/23 Bronchoscopy and Thoracoscopy History of cataract surgery Family History Father Stroke Hypertension Mother Colon cancer high risk Social History (Updated 01/31/23 @ 08:53 by Regina Dan LPN) Smoking/Tobacco Use Status: Current every day Tobacco Type: cigarettes Tobacco: How many years used: 40 Smoking risk assessment performed?: Yes Alcohol Intake: current Alcohol Intake frequency: 0-2 drinks per day Alcohol type: beer Drug use: Never Substance use type: does not use Adopted: No Household members: none Housing: house Number of Children: 2 number of grandchildren: 5 Communication Needs: Corrective Lenses Do you need help understanding health information?: Rarely 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 Pets and animals: Yes Pets and animals: dog(s) What is your relationship status?: How often do you talk on the phone with friends or family?: three or more times per week How often do you get together with friends or relatives?: three or more times per week Panel score (0-1 are the most socially isolated patients): 2 What type of physical activity do you participate in: walking Duration: < 15 minutes/day Frequency: daily Seatbelt use: always Water heater temp set <120 deg: Yes Working smoke detector in home: Yes Fire extinguisher in home: Yes Carbon monox detector in home: Yes Firearms in home: Yes Firearms unloaded and locked: Yes Do you feel safe at home: Yes Do you feel safe in your relationship?: Yes Exam Const General: cooperative, no acute distress, in distress mild and respiratory (tripoding with purse lipped breathing) and ill appearing acutely and chronically Nutritional Appearance: average body habitus and well nourished Orientation: alert, awake and oriented x3 HENMT Head: normal to inspection Ears: hearing grossly normal bilaterally Mouth: mucous membranes dry and other (no rash or discoloration) Chest Chest: normal palpation of entire chest wall, no crepitus and other (barrel chest) Resp Effort & Inspection: labored, pursed lip breathing, no stridor, tachypneic, no tracheal deviation, tripod positioning and uses accessory muscles Auscultation: crackles on the right throughout and on the left at the base, diminished lung sounds on the right in the lower lung granger, no rales, no rhonchi and no wheezes Cardio Rate: tachycardic Rhythm: regular rhythm Heart Sounds: S1 normal and S2 normal GI Inspection: normal to inspection, no edema and non-distended Palpation: soft, no hepatosplenomegaly, not firm, no guarding, not rigid and nontender Auscultation: normal bowel sounds Back/Spine/Pelvis Back: no CVA tenderness Thoracic/Lumbar Spine: thoracic and lumbar spine normal to inspection Skin General skin exam: no rashes or lesions noted Trauma: no lacerations or abrasions Neuro General: patient alert, patient awake and patient oriented x3 Cognition: normal cognition Speech: speech normal Gait: gait assisted (assisted to bed, one person) Extrem General: capillary refill normal, no calf tenderness, edema Laterality: bilateral and pedal edema Course Vital Signs Vital signs: Vital Signs Temperature 36.8 C 06/19/23 16:55 Pulse 110 H 06/19/23 16:55 Respiratory Rate 20 06/19/23 16:55 Blood Pressure 121/69 06/19/23 16:55 Pulse Oximetry 95 06/19/23 16:55 Temperature 36.8 C 06/19/23 16:55 Temperature Source Skin 06/19/23 16:55 Pulse 110 H 06/19/23 16:55 Respiratory Rate 20 06/19/23 16:55 Blood Pressure 121/69 06/19/23 16:55 Blood Pressure Position Sitting 06/19/23 16:55 Pulse Oximetry 95 06/19/23 16:55 Oxygen Delivery Method Room Air 06/19/23 16:55 Oxygen Flow Rate 0 06/19/23 16:55 Pain Level 0 06/19/23 16:55
[2023-06-19] MEDS: Albuterol/Ipratropium 3 ML UPD VIAL UPD ×3 (17:32→21:58)
[2023-06-19 18:11] LABS: BE (Venous) 5 mmol/L (-2-3); HCO3 (Venous) 29 mmol/L (23-28); O2 Sat (Venous) 44 %; TCO2 (Venous) 28 mmol/L (24-29); pCO2 (Venous) 46 mmHg (41-51); pH (Venous) 7.41 (7.31-7.41); pO2 (Venous) 24 mmHg
[2023-06-19 18:12] LABS: Abs Immature Grans 0.08 10^3/uL (0.0-0.06); Absolute Basophil Count 0.04 10^3/uL (0.0-0.2); Absolute Eosinophil Count 0.01 10^3/uL (0.0-0.7); Absolute Monocyte Count 1.15 10^3/uL (0.1-0.8); Basophils % 0.3; Eosinophils % 0.1; HCT 31.1 % (40.0-50.0); HGB 9.8 g/dL (13.5-17.5); Immature Grans % 0.6; Lymphocytes % 8.9; MCH 26.8 pg (27.0-33.0); MCHC 31.5 % (32.0-36.0); MCV 85 fL (80-95); Monocytes % 8.7; Neutrophils % 81.4; Platelet Count 268 10^3/uL (130-400); RBC 3.65 10^6/uL (4.36-5.78); RDW 18.4 % (11.8-14.1); RDW-SD 55.1 fL; WBC 13.22 10^3/uL (4.4-10.8)
[2023-06-19] MEDS: Furosemide 20 MG/2 ML VIAL IVP (18:12)
[2023-06-19 18:13] LABS: Absolute Lymphocyte Count 1.18 10^3/uL (1.2-3.4); Absolute Neutrophil Count 10.76 10^3/uL (1.2-6.7)
[2023-06-19 18:30] LABS: Creatine Kinase 40 U/L (39-308)
[2023-06-19 18:37] LABS: ALT 11 U/L (16-63); AST 13 U/L (15-37); Albumin 1.7 g/dL (3.4-5.0); Alkaline Phosphatase 88 U/L (46-116); Anion Gap 10.4 mmol/L (3-11); BUN 36 mg/dL (7-18); Bilirubin, Total 0.3 mg/dL (0.2-1.0); CO2 27.6 mmol/L (21.0-32.0); CREATININE 1.4 mg/dL (0.70-1.30); Chloride 105 mmol/L (98-107); Estimated GFR 53.74 (mL/min/1.73m2); Glucose 103 mg/dL (74-106); Magnesium 2.1 mg/dL (1.8-2.4); NT-proBNP 2426 pg/mL (<300); Potassium 4.9 mmol/L (3.5-5.1); Sodium 143 mmol/L (136-145); Total Protein 6.3 g/dL (6.4-8.2); Troponin I < 50 ng/L (<or=60)
[2023-06-19 18:43] LABS: D-Dimer 1148 ng/mlFEU (<500)
--- NOTE | 2023-06-19 18:52 | DI.RAD_ITS ---
Exam(s) XR PORTABLE CHEST AP EXAM: XR PORTABLE CHEST AP CLINICAL HISTORY: increased SOB. TECHNIQUE: 2D digital imaging was performed. COMPARISON: CR XR CHEST 2V PA LATERAL from 12/11/2020 FINDINGS: Single AP portable view. Heart size is upper normal. The mediastinum is not widened. There is infiltrate throughout the right lung, most prominent inferiorly and there is moderate size r ight pleural effusion. There also appears to be a left pleural effusion but without confluent infilt rates in the left lung evident. No pneumothorax. No obvious fractures. IMPRESSION: Right lung infiltrate and right pleural effusion. Smaller left pleural effusion. Close follow-up re commended. DATA REPOSITORY: RADIATION DOSE DELIVERED:
--- NOTE | 2023-06-19 19:00 | DI.CT_ITS ---
Exam(s) CT CHEST PE CTA EXAM: CT CHEST PE CTA CLINICAL HISTORY: hx lung cancer, increased SOB. TECHNIQUE: Imaging Protocol: CT angiography of the chest was performed using pulmonary embolus aric col. Multi planar reconstructions were performed. CONTRAST MATERIAL: Intravenous: Omnipaque 350 Contrast volume: 100 cc COMPARISON: CT CT CHEST/ABD/PEL W from 03/30/2023 FINDINGS: CHEST: PULMONARY ARTERIES: There are no intraluminal filling defects to suggest acute pulmonary emboli. LUNGS:There is diffuse nodular thickening of the right sided pleura, further increased. Consistent wi th pleural metastases. There is also consolidated tissue in the right lower lobe, more so than previo us. Small nodular density in the right upper lobe measuring 5-6 mm is now evident, probably also met astatic. Trace pleural fluid on the right side. Mucous evident in the right lower lobe bronchi. On the opposite-left side there is a moderate size pleural effusion which is unchanged in size from 0 03/30/2023. There is no pleural nodularity on the left side. There is a small nodular density in the lingular segment now evident which measures 6 mm, probably metastatic. Smaller nodule in the left l ower lobe noted measuring 3 millimeters. MEDIASTINUM: No obvious hilar adenopathy. Slightly enlarged subcarinal lymph nodes evident. Visuali zed thyroid unremarkable. CARDIAC: Heart size is normal but there is now a prominent pericardial effusion, larger than previous . This measures up to 2 cm width.Thoracic aorta is atherosclerotic but not significantly enlarged an d there is no dissection. There is no significant shift of the interventricular septum. PARTIALLY VISUALIZED UPPERMOST ABDOMEN: No adrenal masses. Atherosclerotic aorta. OSSEOUS: There is a E fracture of the posterolateral aspect of the left 12th rib. Does not appear pa thologic but was not evident on the prior CT scan. No other fractures identified.. No lytic osseous lesions.. IMPRESSION: 1. No evidence of acute pulmonary emboli. No evidence of pulmonary infarction. 2. Diffuse nodular neoplastic metastatic involvement of the right pleura. 3. Small nodular densities now evident in the lung granger as described above which are probably metas tatic. 4. Moderate sized left pleural effusion is unchanged in size from 03/30/2023. 5. Large pericardial effusion which has increased in size. Left 12th rib fracture, not previously present. No obvious lytic osseous lesions evident. First read by [facility] Final report called by myself to ER physician 06/20/2023 at 9:30 a.m. RADIATION DOSE DELIVERED: Total DLP DATA REPOSITORY: All CT scans at this facility are submitted to the National Radiology Data Registry (NRDR) Dose Index Registry (DIR) with the [employer] (ACR). RADIATION OPTIMIZATION: All CT scans at this facility use at least one of these dose optimization te chniques: automated exposure control; mA and/or kV adjustment per patient size (includes targeted exa ms where dose is matched to clinical indication); or iterative reconstruction.
[2023-06-19] MEDS: Omnipaque 350 MG/ML 100 ML BTL IJ (19:30)
[2023-06-19] MEDS: Normal Saline - Diluent 50 ML VIAL IJ (19:31)
[2023-06-19] MEDS: Normal Saline Flush 10 ML SYR IVP (19:31)
--- NOTE | 2023-06-19 19:39 | DI.VRAD_ITS ---
PROCEDURE INFORMATION: Exam: XR Chest Exam date and time: 06/19/2023 6:48 PM Age: 72 years old Clinical indication: Shortness of breath TECHNIQUE: Imaging protocol: Radiologic exam of the chest. Views: 1 view. COMPARISON: CT CHEST/ABD/PEL W 03/30/2023 12:58 PM FINDINGS: Limited due to rotation Lungs: Right basilar consolidation. Pleural spaces: Right pleural effusion. No pneumothorax. Heart/Mediastinum: Tortuous aorta. No cardiomegaly. Bones/joints: Unremarkable. IMPRESSION: Right lower lobe pneumonia and suspected right parapneumonic effusion Follow-up with plain films to resolution is recommended. Dictated and Authenticated by: Lauri Seymour MD. Ordering:SRAVANI Thomas MD
--- NOTE | 2023-06-19 20:08 | DI.VRAD_ITS ---
PROCEDURE INFORMATION: Exam: CTA Chest With Contrast Exam date and time: 06/19/2023 7:35 PM Age: 72 years old Clinical indication: Shortness of breath; Patient HX: HX lung cancer, increased SOB; Additional info: Currently receiving chemo, fluid removed from lungs twice per PT. TECHNIQUE: Imaging protocol: Computed tomographic angiography of the chest with contrast. Exam focused on the arteries. 3D rendering (Not supervised by radiologist): MIP and/or 3D reconstructed images were created by the technologist. Radiation optimization: All CT scans at this facility use at least one of these dose optimization techniques: automated exposure control; mA and/or kV adjustment per patient size (includes targeted exams where dose is matched to clinical indication); or iterative reconstruction. Contrast material: OMNIPAQUE 350; Contrast volume: 60 ml; Contrast route: INTRAVENOUS (IV); COMPARISON: CT CHEST/ABD/PEL W 03/30/2023 12:58 PM FINDINGS: Limited due to respiratory motion artifact Pulmonary arteries: No pulmonary emboli. Aorta: No aortic aneurysm. No aortic dissection. Lungs: Moderate emphysema. Diffuse nodular circumferential pleural thickening on the right in keeping with history of neoplasm. Right upper lobe nodules measuring up to 5 mm noted. There is narrowing of the right distal mainstem bronchus. Interstitial opacities on the right Pleural spaces: Small left and minimal right pleural effusions No pneumothorax Heart: No cardiomegaly. Large pericardial effusion. Lymph nodes: Mildly enlarged paraesophageal lymph nodes and abnormal soft tissue in the posterior mediastinum. Bones/joints: No acute fracture. Heterogeneous appearance to the osseous structures with multiple lucencies Soft tissues: Anasarca noted Abnormal nodularity along the inferior margin of the right diaphragmatic grant overlying the liver IMPRESSION: No pulmonary emboli detected Diffuse neoplastic/metastatic involvement in the right pleural space/right lung Left greater than right pleural effusions Large pericardial effusion Osseous metastatic disease not excluded Dictated and Authenticated by: Lauri Seymour MD. Ordering:SRAVANI Thomas MD
[2023-06-19 20:34] LABS: Troponin I < 50 ng/L (<or=60)
--- NOTE | 2023-06-19 20:50 | HPE_ITS ---
Date of service: 06/19/23 Time of Service: 20:53 Assessment and Plan Assessment and plan (1) Acute CHF: Status: Acute Assessment and plan: Diurese. Monitor I/O's, daily weights. Telemetry could be useful to rule out any arrhythmias, but I did d/c it as the patient verbalized a preference not to have it. Obtain a formal echocardiogram. (2) Bilateral pleural effusion: Status: Acute Assessment and plan: Diurese, monitor I/Os, daily weights. (3) Bilateral lower extremity edema: Status: Acute Assessment and plan: Diurese. Obtain echo. Obtain venous dopplers BLEs. (4) Acute pericardial effusion: Status: Acute Assessment and plan: Acute on chronic without evidence of tamponade. The patient is in CHF. Will obtain a formal echocardiogram. He is DNR, DNI, s/p pericardial window in the past. 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 On palliative chemo; inoperable. C/s palliative care (6) Leucocytosis: Status: Acute Assessment and plan: No evidence of PNA by CT or clinically. Will not start abx at this time. (7) Ambulatory dysfunction: Status: Acute Assessment and plan: I am concerned for a possible spinal met given persistent numbness in BLEs after the fall today. The patient is making his decision about getting an MRI tonight and will tell us what it is tomorrow. In march of this year, no spinal lesions were seen on CT abdomen/pelvis. C/s PT (8) Anemia: Status: Chronic Assessment and plan: At baseline. Monitor (9) CKD (chronic kidney disease) stage 3, GFR 30-59 ml/min: Status: Chronic Assessment and plan: At baseline. Monitor Cr with diuresis. (10) Hypoalbuminemia: Status: Acute Assessment and plan: Suspect the patient has acute severe malnutrition. Previously on mirtazapine and not interested in marinol. This could be again revisited on this admission. Nutrition consult. (11) Dysphagia: Status: Acute Assessment and plan: For liquids and solids. Obtain a swallowing evaluation. C/s speech therapy. (12) DVT prophylaxis: Status: Acute Assessment and plan: SC enoxaparin (13) Discharge planning issues: Status: Acute Assessment and plan: DNR, DNI C/s PT, OT, palliative care History of Present Illness History of Present Illness Chief Complaint: Shortness of breath, weakness, fall Narrative: Mr Peterson is a 72 year old male with PMHx of adenocarcinoma of the left lung stage 4 w/ mets to R lung, lymph nodes, bone, and liver, on palliative chemotherapy with docetaxel as well as denosumab, last treatment on 05/29/23, h/o recurrent pleural effusion, pericardial effusion without cardiac tamponade s/p pericardial window and pleurodesis, (neither pericardial effusion nor pleural effusions were FDG-avid on PET CT), hypertension, who presented to [facility] ED today with weakness, having an episode today of his legs giving out and having to lower himself to the ground, as well as progressively worsening shortness of breath and BLE javon ma. He was standing by the kitchen counter when the fall happened. He states his legs had never given out like that before. He now has numbness in his BLEs. This started after the fall. He states he did not hurt his back and he has no pain in his back. He also denies saddle anesthesia. He has hesitancy on initiation of urination, and he has had intermittent diarrhea/constipation with accidents wit hout him being aware. The breathing is worse on exertion, after 5-6 steps. He does have a cough pro ductive of yellow sputum (no change in color recently). He has noticed leg swelling two days ago. He denies fevers. CTA of the chest excluded acute PE, but did show diffuse metastatic disease in the right pleural space, right lung, Bilateral (L>R) pleural effusions), a large pericardial effusions, and possible osseous metastatic disease. POCUS echocardiogram in the ER confirmed a pericardial effusion and showed no evidence of cardiac tamponade, and the EKG also did not reveal the classic findings of tamponade. Clinically, the patient was felt to be in CHF. He was tripoding and tachypneic, but not requiring oxygen. He received a nebulizer treatment as well as a dose of furosemide 20 mg IV with improvement in symptoms. Hospitalist admission was requested. The patient is considering stopping chemotherapy because he had not had a good month. He has had a hard time eating and drinking because of a pain in his right neck/floor of the mouth, He is ok with being seen by palliative care, PT, OT, speech. He does not want telemetry. We decided he would consider whether or not he would want an MRI. He has a waker and a cane, but does not use them. He lives alone. 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 (Chronic) Ambulatory dysfunction (Acute) Bilateral lower extremity edema (Acute) Bilateral pleural effusion (Acute) Acute CHF (Acute) Bilateral lung cancer (Acute) Anemia (Chronic) Breath shortness (Acute) Acute pericardial effusion (Acute) Pleural effusion (Acute) Anemia (Chronic ~04/2023) 05/24/23 [facility] Hem/Onc Macular degeneration (senile) of retina (Acute) Poliomyelitis (Acute) at 5 years of age Encounter to establish care (Acute) Elevated blood pressure reading in office with diagnosis of hypertension (Acute) HTN (hypertension) with goal to be determined (Acute) IFG (impaired fasting glucose) (Acute) Colonoscopy refused (Acute) Failure to attend screening for abdominal aortic aneurysm (AAA) (Acute) Hyponatremia (Acute) Hyperkalemia (Acute) Pre-op evaluation (Acute) Abnormal blood chemistry (Acute) Hyponatremia (Acute) Screening for prostate cancer (Acute) Elevated PSA (Acute) Hyperkalemia (Acute) Hypertension (Chronic) Nicotine dependence, cigarettes, uncomplicated (Acute) Pulmonary nodule (Acute) Metastatic lung cancer (metastasis from lung to other site) (Acute) 03/07/22;[facility] [place]onc [place]; [id number] lung cancer stage IV with osseous metastases. 11/03/22 Restaging scan, on chemo 02/20/23 [facility] Hem/Onc - on chemo Adenopathy, hilar (Acute) 01/18/22-[facility] [place] pulmonology consult note Mediastinal adenopathy (Acute) 01/18/22-[facility] [place] pulmonology consult note S/P bronchoscopy (Acute) 01/25/22 procedure note-[facility] [place] interventional pulmonology. Successful flexible bronchoscopy and EBUS-TBNA (5 sites) Brady Toure MD Secondary malignant neoplasm of bone (Acute) 02/10/22-[facility] [place] Hem/Onc note; Paul Law MD Anemia due to antineoplastic chemotherapy (Acute ~04/2022) 05/02/22 [facility] Hem/Onc Abnormal blood level of magnesium (Acute) 05/02/22 [facility] Hem/Onc - started on magnesium Elevated serum creatinine (Acute ~09/2022) 10/17/22 [facility] Hem/Onc,pemetrex stopped. Effusion, pericardium (Acute ~11/2022) 12/05/22 [facility] Hem/Onc Pleural effusion, malignant (Acute) 01/03/23 Thoracic Recurrent pleural effusion on right (Acute) 01/03/23 Thoracic Surgery Medical History Abnormal chest CT Encounter for screening for lung cancer Smoker Surgical History History of bronchoscopy (~12/19/22) 12/19/22 01/05/23 Bronchoscopy and Thoracoscopy History of cataract surgery Family History Father Stroke Hypertension Mother Colon cancer high risk Cancer head and neck cancer, colon cancer Other Heart disease Social History Smoking/Tobacco Use Status: Current every day Tobacco Type: cigarettes Smoking packs per day: 0.25 Smoking cigarettes per day: 5.0 Years smoked: 50 Smoking pack-years: 12.50 Tobacco: How many years used: 50 Counseling given: provider counseling, support medications and patient declined Smoking risk assessment performed?: Yes Alcohol Intake: former Drug use: Never Substance use type: does not use Adopted: No Household members: none Housing: house Number of Children: 2 number of grandchildren: 5 Communication Needs: Corrective Lenses Do you need help understanding health information?: Rarely 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 Pets and animals: Yes Pets and animals: dog(s) What is your relationship status?: How often do you talk on the phone with friends or family?: three or more times per week How often do you get together with friends or relatives?: three or more times per week Panel score (0-1 are the most socially isolated patients): 2 What type of physical activity do you participate in: walking Duration: < 15 minutes/day Frequency: daily Seatbelt use: always Water heater temp set <120 deg: Yes Working smoke detector in home: Yes Fire extinguisher in home: Yes Carbon monox detector in home: Yes Firearms in home: Yes Firearms unloaded and locked: Yes Do you feel safe at home: Yes Do you feel safe in your relationship?: Yes Meds Allergies and Home Medications Allergies Allergy/AdvReac Type Severity Reaction Status Date / Time No Known Allergies Allergy Verified 06/19/23 17:00 Home Medications Medication Instructions Recorded Confirmed Type acetaminophen 325 mg capsule 325 mg PO Q4H PRN 04/20/21 06/19/23 History amlodipine 10 mg tablet 10 mg PO DAILY #90 tabs 11/14/22 02/17/23 Rx metoprolol succinate 50 mg 50 mg PO DAILY #90 tabs 11/14/22 06/19/23 Rx tablet,extended release 24 hr docusate sodium 100 mg capsule 100 mg PO TID PRN x 10 days 12/23/22 06/19/23 History (Colace) lorazepam 0.5 mg tablet 0.5 mg PO .1-2 tabs prior MRI PRN 12/23/22 06/19/23 History sennosides 8.6 mg tablet (senna) 17.2 mg PO DAILY conctipation 12/23/22 06/19/23 History loperamide [Imodium A-D] PO PRN 05/31/23 History calcium 250 mg tablet 250 mg PO BID 06/19/23 06/19/23 History Exam Narrative Exam Narrative: General: Very pleasant elderly male with advent wasting, on 1L of O2 by NH, appears comfortable laying at about a 30 degree angle in bed Neurological: A&Ox3, CN II-XII intact, R foot drop (from h/o polio, chronic), preserved sendation BLEs on exam Psychiatric: Appropriate speech pattern/content Skin: Visible skin dry, intact HEENT: Atraumatic, normocephalic, EOMI dry MM, clear oropharynx, no obvious submandibular or cervical lymphadenopathy, no goiter or JVD Cardiovascular: RRR, mildly tachycardic, no m/r/g Lungs: Diminished dull breath sounds B Gastrointestinal: soft, scaphoid, nontender, nondistended Genitourinary: deferred Extremities: +1 BLE edema, symmetric, no c/c; L foot with + 1 pedal pulse; I am unable to feel pedal pulse on R foot. Results Imaging Additional studies: EKG: ST, HR 118, no acute ischemia CXR: Right lower lobe pneumonia and suspected right parapneumonic effusion Follow-up with plain films to resolution is recommended. CTA chest: No pulmonary emboli detected Diffuse neoplastic/metastatic involvement in the right pleural space/right lung Left greater than right pleural effusions Large pericardial effusion Osseous metastatic disease not excluded Labs 06/19/23 18:06 06/19/23 18:06 Labs: Laboratory Results - last 24 hr 06/19/23 06/19/23 06/19/23 18:06 18:06 18:06 WBC 13.22 H RBC 3.65 L Hgb 9.8 L Hct 31.1 L MCV 85 MCH 26.8 L MCHC 31.5 L RDW 18.4 H Plt Count 268 MPV 11.0 Immature Gran % 0.6 Neutrophils % 81.4 Lymphocytes % 8.9 Monocytes % 8.7 Eosinophils % 0.1 Basophils % 0.3 Nucleated RBC % 0.0 Absolute Neutrophils 10.76 H Absolute Lymphocytes 1.18 L Absolute Monocytes 1.15 H Absolute Eosinophils 0.01 Absolute Basophils 0.04 D-Dimer 1148 H VBG pH VBG pCO2 VBG pO2 VBG HCO3 VBG Total CO2 VBG O2 Saturation VBG Base Excess Sodium 143 Potassium 4.9 Chloride 105 Carbon Dioxide 27.6 Anion Gap 10.4 BUN 36 H Creatinine 1.4 H Est GFR (CKD-EPI 2020) 53.74 Glucose 103 Calcium 9.0 Magnesium 2.1 Total Bilirubin 0.3 AST 13 L ALT 11 L Alkaline Phosphatase 88 Creatine Kinase Troponin I < 50 NT-Pro-B Natriuret Pep 2426 H Total Protein 6.3 L Albumin 1.7 L 06/19/23 06/19/23 06/19/23 18:06 18:06 20:06 WBC RBC Hgb Hct MCV MCH MCHC RDW Plt Count MPV Immature Gran % Neutrophils % Lymphocytes % Monocytes % Eosinophils % Basophils % Nucleated RBC % Absolute Neutrophils Absolute Lymphocytes Absolute Monocytes Absolute Eosinophils Absolute Basophils D-Dimer VBG pH 7.41 VBG pCO2 46 VBG pO2 24 VBG HCO3 29 H VBG Total CO2 28 VBG O2 Saturation 44 VBG Base Excess 5 H Sodium Potassium Chloride Carbon Dioxide Anion Gap BUN Creatinine Est GFR (CKD-EPI 2020) Glucose Calcium Magnesium Total Bilirubin AST ALT Alkaline Phosphatase Creatine Kinase 40 Troponin I < 50 NT-Pro-B Natriuret Pep Total Protein Albumin Last Vital Signs Temp 36.8 C 06/19/23 16:55 Pulse 114 H 06/19/23 18:02 Resp 25 H 06/19/23 18:02 BP 121/69 06/19/23 16:55 Pulse Ox 100 06/19/23 18:02 Time Spent Time spent with Patient: 55-74 minutes Time was spent: preparing to see the patient(eg.review tests), obtaining and/or reviewing separately otained hiistory, ordering medications,tests, procedures, referring, communicating with other health acute care nurse practitioner, indepentently interpreting results, counseling the patient and care coordination
[2023-06-19] MEDS: Enoxaparin 40 MG/0.4 ML SYR SC (22:23)
[2023-06-20 06:13] LABS: Abs Immature Grans 0.05 10^3/uL (0.0-0.06); Absolute Basophil Count 0.04 10^3/uL (0.0-0.2); Absolute Eosinophil Count 0.02 10^3/uL (0.0-0.7); Absolute Monocyte Count 0.95 10^3/uL (0.1-0.8); Absolute Neutrophil Count 7.69 10^3/uL (1.2-6.7); Basophils % 0.4; Eosinophils % 0.2; HCT 25.9 % (40.0-50.0); HGB 8.2 g/dL (13.5-17.5); Immature Grans % 0.5; Lymphocytes % 9.3; MCHC 31.7 % (32.0-36.0); MCV 85 fL (80-95); Monocytes % 9.8; Neutrophils % 79.8; Platelet Count 229 10^3/uL (130-400); RBC 3.04 10^6/uL (4.36-5.78); RDW 18.3 % (11.8-14.1); RDW-SD 55.4 fL; WBC 9.65 10^3/uL (4.4-10.8)
[2023-06-20 06:25] LABS: Anion Gap 7.8 mmol/L (3-11); BUN 36 mg/dL (7-18); CO2 28.2 mmol/L (21.0-32.0); CREATININE 1.5 mg/dL (0.70-1.30); Calcium 8.4 mg/dL (8.5-10.1); Chloride 107 mmol/L (98-107); Estimated GFR 49.47 (mL/min/1.73m2); Glucose 95 mg/dL (74-106); Magnesium 1.9 mg/dL (1.8-2.4); Potassium 4.7 mmol/L (3.5-5.1); Sodium 143 mmol/L (136-145)
[2023-06-20 07:21] VITALS: PULSE 105; RESP 12; RESP 5; RESP 7; RESP 8; O2SAT 97
[2023-06-20] MEDS: Albuterol/Ipratropium 3 ML UPD VIAL UPD (07:21)
[2023-06-20 07:30] VITALS: BP 103/66; PULSE 102; RESP 16; TEMP 36.5; O2SAT 98
[2023-06-20 08:00] VITALS: O2SAT 96
--- NOTE | 2023-06-20 08:00 | DI.US_ITS ---
Exam(s) US EXTREMITY VENOUS BI EXAM: US EXTREMITY VENOUS BI CLINICAL HISTORY: BLE edema, concern for DVT TECHNIQUE: Grayscale, color, and doppler imaging of the deep venous system of both lower extremities was performed. COMPARISON: No exams were available for comparison FINDINGS: There is no evidence of intraluminal thrombus and there is normal compression and augmentation demons trated within the common femoral veins, femoral veins, and popliteal veins of both lower extremities. In the calves the interrogated veins also exhibit normal compression/ augmentation properties. The greater saphenous veins also appear patent as do the saphenofemoral junctions bilaterally.. IMPRESSION: 1. No ultrasound evidence of DVT in either lower extremity. DATA REPOSITORY:
--- NOTE | 2023-06-20 09:05 | OTIE_ITS ---
Occupational Therapy Notes Inpatient Occupational Therapy Evaluation Date: 06/20/23 Referring Doctor: Jessenia Parrish MD OT Orders: Non Urgent Precautions: Fall, standard, DNR/DNI PATIENT PROFILE/ADMITTING DIAGNOSIS: Pt is a 72 year old male who was admitted through the ED after a fall at home and was admitted to Med Surg with the dx of dysphagia, hypoalbuminenia, CKD, leucocytosis, adenocarcinoma of (L) 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, ambulatory dysfunction, (B) LE edema, (B) pleural effusion, Acute CHF, (B) lung cancer, SOB, acute pericardial effusion. 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 (Chronic) Ambulatory dysfunction (Acute) Bilateral lower extremity edema (Acute) Bilateral pleural effusion (Acute) Acute CHF (Acute) Bilateral lung cancer (Acute) Anemia (Chronic) Breath shortness (Acute) Acute pericardial effusion (Acute) Pleural effusion (Acute) Anemia (Chronic ~04/2023) 05/24/23 [facility] Hem/OncMacular degeneration (senile) of retina (Acute) Poliomyelitis (Acute) at 5 years of ageEncounter to establish care (Acute) Elevated blood pressure reading in office with diagnosis of hypertension (Acute) HTN (hypertension) with goal to be determined (Acute) IFG (impaired fasting glucose) (Acute) Colonoscopy refused (Acute) Failure to attend screening for abdominal aortic aneurysm (AAA) (Acute) Hyponatremia (Acute) Hyperkalemia (Acute) Pre-op evaluation (Acute) Abnormal blood chemistry (Acute) Hyponatremia (Acute) Screening for prostate cancer (Acute) Elevated PSA (Acute) Hyperkalemia (Acute) Hypertension (Chronic) Nicotine dependence, cigarettes, uncomplicated (Acute) Pulmonary nodule (Acute) Metastatic lung cancer (metastasis from lung to other site) (Acute) [place] [place]; [id number]-khids-uxub lung cancer stage IV with osseous metastases. 11/03/22 Restaging scan, on chemo 02/20/23 [facility] Hem/Onc - on chemoAdenopathy, hilar (Acute) [place] [place] noteMediastinal adenopathy (Acute) 01/18[place] [place]/P bronchoscopy (Acute) 01/25/22 [place] [place]. Successful flexible bronchoscopy and EBUS-TBNA (5 sites) Brady Toure, [facility] malignant neoplasm of bone (Acute) 02/10[place]22[place] [place]; Paul Romerolisa, MDAnemia due to antineoplastic chemotherapy (Acute ~04/2022) 05/02/[address] [facility] Hem/OncAbnormal blood level of magnesium (Acute) 05/02/22 [facility] Hem/Onc - started on magnesiumElevated serum creatinine (Acute ~09/2022) 10/17/22 [facility] Hem/Onc,pemetrex stopped.Effusion, pericardium (Acute ~11/2022) 12/05/22 [facility] Hem/OncPleural effusion, malignant (Acute) 01/03/23 ThoracicRecurrent pleural effusion on right (Acute) 01/03/23 Thoracic Surgery Medical History Abnormal chest CT Encounter for screening for lung cancer Smoker Surgical History? History of bronchoscopy (~12/19/22) 12/19/22 01/05/23 Bronchoscopy and Thoracoscopy DHHistory of cataract surgery Social History/Home Situation: Pt lives alone in a private home. He has a brother and 3 neighbors that are his social support. He notes that he has stairs to enter his home but doesn't need to use them. He does drive (I) and prepares his meals. His brother does his grocery shopping for him. He states that he performs his bathing standing at the sink. He does report that he has difficulty with conserving his energy. He has been trying to make less trips for tasks. OT provided pt with tips on energy conservation to (A) with this which he is receptive to this. Equipment owned/DME: None SUBJECTIVE: Pt was sitting in bed, he is agreeable to consult and notes that he would like to go home. He reports that he was walking to his kitchen to get lunch and fell and couldn't get up for 2-3 hours. He reports that functionally he feels that this was just weakness and that his legs felt numb yesterday. He states that overall he is feeling better today. OBJECTIVE: General Observation: Pleasant, agreeable to consult, IV in (B) UE (L) in elbow Mental Status: A&Ox4 Pain: no c/o pain ROM: RUE AROM WFL L UE AROM WFL STRENGTH: RUE shoulder flexion 4-/5, bicep 4/5, tricep, 4/5, director of plant operations is 4/5 and symmetrical LUE shoulder flexion 4+/5, bicep 4-/5, tricep, 4/5, director of plant operations is 4/5 and symmetrical FUNCTIONAL MOBILITY/ADLS: BATHING AROM WFL to perform (I). He performs this standing at sink with HOS (hand on sink support) for performance at home (I). DRESSING seated Dressing LE (I) don and doffing (B) socks EATING (I) but notes that he does have difficulty at times with swallowing due to sores in his mouth from his teeth which he contributes to weight loss. BALANCE: Static sitting Normal Dynamic Sitting Normal INFORMED CONSENT/EDUCATION: Pt instructed in purpose of OT Consult and plan of care. ASSESSMENT: Patient is a 72-year-old male referred to occupational therapy services with diagnosis of dysphagia, hypoalbuminenia, CKD, leucocytosis, adenocarcinoma of (L) 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, ambulatory dysfunction, (B) LE edema, (B) pleural effusion, Acute CHF, (B) lung cancer, SOB, acute pericardial effusion.. Patient presents with clinical signs and symptoms consistent with dx, as demonstrated by the following impairment level findings/ functional limitations: decreased functional mobility and LE functional activity tolerance, fatigue, decreased standing ADLs. Patient is assessed as a Low 18043 complexity based on the following: History: see above Examination: see functional limitations as noted above Presentation: evolving Decision Making: low complexity GOALS Goals x1 week 1. Transfers (I) 2. Dressing seated (I) 3. Bathing standing at sink (I) 4. Toileting on toilet (I) 5. Eating (I) PLAN OF CARE/TREATMENT PLAN: 1x/day, 5 days/ week x 1week Initiate Occupational Therapy Services for bathing, dressing, grooming, toileting, eating, transfer training. DISCHARGE RECOMMENDATIONS Home when medically cleared per MD pending PT consult for functional mobility OT recommends the following adaptive equipment/services: * PRODUCTION SCHEDULER consult outpatient for chewing and swallowing. Pt states that he has lost a lot of weight and his teeth do not fit well which causes sores in his mouth and difficulty with swallowing his food. OT recommends PRODUCTION SCHEDULER consult to (A) pt with ideas on better chewing mechanics to decrease safety issue. * Raised toilet seat- to increase pts safety with toileting routines and decrease un-needed energy expenditure throughout. TREATMENT TIME/MINUTES/CODES 55809, [id number], 20 minutes Sharon Elmore OTR/[facility] [place], [place]
[2023-06-20] MEDS: Calcium Carbonate *TUMS* 500 MG CHEW 250 MG PO (09:09)
[2023-06-20] MEDS: Furosemide 20 MG/2 ML VIAL IVP ×2 (09:10→16:23)
[2023-06-20] MEDS: Metoprolol CR 50 MG TABCR PO (09:10)
[2023-06-20] MEDS: Senna TAB 2 TAB PO (09:10)
--- NOTE | 2023-06-20 09:33 | INITIAL_ITS ---
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 (Chronic) Ambulatory dysfunction (Acute) Bilateral lower extremity edema (Acute) Bilateral pleural effusion (Acute) Acute CHF (Acute) Bilateral lung cancer (Acute) Anemia (Chronic) Acute pericardial effusion (Acute) Pleural effusion (Acute) Anemia (Chronic ~04/2023) 05/24/23 [facility] Hem[facility]Onc Macular degeneration (senile) of retina (Acute) Poliomyelitis (Acute) at 5 years of age Encounter to establish care (Acute) Elevated blood pressure reading in office with diagnosis of hypertension (Acute) HTN (hypertension) with goal to be determined (Acute) IFG (impaired fasting glucose) (Acute) Colonoscopy refused (Acute) Failure to attend screening for abdominal aortic aneurysm (AAA) (Acute) Hyponatremia (Acute) Hyperkalemia (Acute) Pre-op evaluation (Acute) Abnormal blood chemistry (Acute) Hyponatremia (Acute) Screening for prostate cancer (Acute) Elevated PSA (Acute) Hyperkalemia (Acute) Hypertension (Chronic) Nicotine dependence, cigarettes, uncomplicated (Acute) Pulmonary nodule (Acute) Adenopathy, hilar (Acute) 01/18/22-[facility] pulmonology consult note Mediastinal adenopathy (Acute) 01/18/22-[facility] pulmonology consult note S/P bronchoscopy (Acute) 01/25/22 procedure note-[facility] interventional pulmonology. Successful flexible bronchoscopy and EBUS-TBNA (5 sites) Brady Toure MD Secondary malignant neoplasm of bone (Acute) 02/10/22-[facility] Hem/Onc note; Paul Law MD Anemia due to antineoplastic chemotherapy (Acute ~04/2022) 05/02/22 [facility] Hem/Onc Abnormal blood level of magnesium (Acute) 05/02/22 [facility] Hem/Onc - started on magnesium Elevated serum creatinine (Acute ~09/2022) 10/17/22 [facility] Hem[facility]Onc,pemetrex stopped. Pleural effusion, malignant (Acute) 01/03/23 Thoracic Recurrent pleural effusion on right (Acute) 01/03/23 Thoracic Surgery Medical History Abnormal chest CT Encounter for screening for lung cancer Smoker Surgical History History of bronchoscopy (~12/19/22) 12/19/22 01/05/23 Bronchoscopy and Thoracoscopy History of cataract surgery Family History Father Stroke Hypertension Mother Colon cancer high risk Cancer head and neck cancer, colon cancer Other Heart disease Social History Smoking/Tobacco Use Status: Current every day Tobacco Type: cigarettes Smoking packs per day: 0.25 Smoking cigarettes per day: 5.0 Years smoked: 50 Smoking pack-years: 12.50 Tobacco: How many years used: 50 Counseling given: provider counseling, support medications and patient declined Smoking risk assessment performed?: Yes Alcohol Intake: former Drug use: Never Substance use type: does not use Adopted: No Household members: none Housing: house Number of Children: 2 number of grandchildren: 5 Communication Needs: Corrective Lenses Do you need help understanding health information?: Rarely 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 Pets and animals: Yes Pets and animals: dog(s) What is your relationship status?: How often do you talk on the phone with friends or family?: three or more times per week How often do you get together with friends or relatives?: three or more times per week Panel score (0-1 are the most socially isolated patients): 2 What type of physical activity do you participate in: walking Duration: < 15 minutes/day Frequency: daily Seatbelt use: always Water heater temp set <120 deg: Yes Working smoke detector in home: Yes Fire extinguisher in home: Yes Carbon monox detector in home: Yes Firearms in home: Yes Firearms unloaded and locked: Yes Do you feel safe at home: Yes Do you feel safe in your relationship?: Yes
--- NOTE | 2023-06-20 11:18 | W.PM.PROGNOT ---
Date of Service Date of service: 06/20/23 Time of Service: 11:18 Assessment and Plan Assessment and plan (1) Acute CHF: Status: Acute Assessment and plan: continue diurese. Monitor I/O's, daily weights. Telemetry not ordered per patient request echocardiogram pending for tomorrow. (2) Bilateral pleural effusion: Status: Acute Assessment and plan: Diurese, monitor I/Os, daily weights. (3) Bilateral lower extremity edema: Status: Acute Assessment and plan: Diurese. Obtain echo. Obtain venous dopplers BLEs. (4) Acute pericardial effusion: Status: Acute Assessment and plan: Acute on chronic without evidence of tamponade. The patient is in CHF. Will obtain a formal echocardiogram. He is DNR, DNI, s/p pericardial window in the past. 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 On palliative chemo; inoperable. C/s palliative care (6) Leucocytosis: Status: Resolved Assessment and plan: No evidence of PNA by CT or clinically. Will not start abx at this time. (7) Ambulatory dysfunction: Status: Acute Assessment and plan: concern for a possible spinal met given persistent numbness in BLEs after the fall today. The patient is considering MRI which was offered. palliative care consult placed to help guide limits of care In march of this year, no spinal lesions were seen on CT abdomen/pelvis. continue PT (8) Anemia: Status: Chronic Assessment and plan: At baseline. Monitor (9) CKD (chronic kidney disease) stage 3, GFR 30-59 ml/min: Status: Chronic Assessment and plan: At baseline. Monitor Cr with diuresis. (10) Hypoalbuminemia: Status: Acute Assessment and plan: Suspect the patient has acute severe malnutrition. Previously on mirtazapine and not interested in marinol. This could be again revisited on this admission. Nutrition consult. (11) Dysphagia: Status: Acute Assessment and plan: For liquids and solids. Obtain a swallowing evaluation. C/s speech therapy. (12) DVT prophylaxis: Status: Deleted Assessment and plan: SC enoxaparin (13) Discharge planning issues: Status: Deleted Assessment and plan: DNR, DNI consults with PT, OT, palliative care discussed with DR Parmar. Subjective Subjective Patient reports: no new complaints Exam Const General: cooperative, no acute distress and ill appearing acutely and chronically Nutritional Appearance: average body habitus and well nourished Orientation: alert, awake and oriented x3 HENKS Head: normal to inspection Ears: hearing grossly normal bilaterally Mouth: mucous membranes dry and other (no rash or discoloration) Chest Chest: normal palpation of entire chest wall Resp Auscultation: diminished lung sounds on the right in the lower lung granger Cardio Rhythm: regular rhythm GI Inspection: normal to inspection Palpation: soft and nontender Auscultation: normal bowel sounds Back/Spine/Pelvis Back: no CVA tenderness Skin General skin exam: no rashes or lesions noted Trauma: no lacerations or abrasions Neuro General: patient alert, patient awake and patient oriented x3 Cognition: normal cognition Speech: speech normal Extrem General: capillary refill normal, no calf tenderness, edema Laterality: bilateral and pedal edema Objective Last Vital Signs Temp 36.5 C 06/20/23 07:30 Pulse 102 H 06/20/23 07:30 Resp 16 06/20/23 07:30 BP 103/66 06/20/23 07:30 Pulse Ox 96 06/20/23 08:00 Laboratory Results - last 24 hr 06/19/23 06/19/23 06/19/23 18:06 18:06 18:06 WBC 13.22 H RBC 3.65 L Hgb 9.8 L Hct 31.1 L MCV 85 MCH 26.8 L MCHC 31.5 L RDW 18.4 H Plt Count 268 MPV 11.0 Immature Gran % 0.6 Neutrophils % 81.4 Lymphocytes % 8.9 Monocytes % 8.7 Eosinophils % 0.1 Basophils % 0.3 Nucleated RBC % 0.0 Absolute Neutrophils 10.76 H Absolute Lymphocytes 1.18 L Absolute Monocytes 1.15 H Absolute Eosinophils 0.01 Absolute Basophils 0.04 D-Dimer 1148 H VBG pH VBG pCO2 VBG pO2 VBG HCO3 VBG Total CO2 VBG O2 Saturation VBG Base Excess Sodium 143 Potassium 4.9 Chloride 105 Carbon Dioxide 27.6 Anion Gap 10.4 BUN 36 H Creatinine 1.4 H Est GFR (CKD-EPI 2020) 53.74 Glucose 103 Calcium 9.0 Magnesium 2.1 Total Bilirubin 0.3 AST 13 L ALT 11 L Alkaline Phosphatase 88 Creatine Kinase Troponin I < 50 NT-Pro-B Natriuret Pep 2426 H Total Protein 6.3 L Albumin 1.7 L 06/19/23 06/19/23 06/19/23 18:06 18:06 20:06 WBC RBC Hgb Hct MCV MCH MCHC RDW Plt Count MPV Immature Gran % Neutrophils % Lymphocytes % Monocytes % Eosinophils % Basophils % Nucleated RBC % Absolute Neutrophils Absolute Lymphocytes Absolute Monocytes Absolute Eosinophils Absolute Basophils D-Dimer VBG pH 7.41 VBG pCO2 46 VBG pO2 24 VBG HCO3 29 H VBG Total CO2 28 VBG O2 Saturation 44 VBG Base Excess 5 H Sodium Potassium Chloride Carbon Dioxide Anion Gap BUN Creatinine Est GFR (CKD-EPI 2020) Glucose Calcium Magnesium Total Bilirubin AST ALT Alkaline Phosphatase Creatine Kinase 40 Troponin I < 50 NT-Pro-B Natriuret Pep Total Protein Albumin 06/20/23 06/20/23 05:36 05:36 WBC 9.65 RBC 3.04 L Hgb 8.2 L Hct 25.9 L MCV 85 MCH 27.0 MCHC 31.7 L RDW 18.3 H Plt Count 229 MPV 11.0 Immature Gran % 0.5 Neutrophils % 79.8 Lymphocytes % 9.3 Monocytes % 9.8 Eosinophils % 0.2 Basophils % 0.4 Nucleated RBC % 0.0 Absolute Neutrophils 7.69 H Absolute Lymphocytes 0.90 L Absolute Monocytes 0.95 H Absolute Eosinophils 0.02 Absolute Basophils 0.04 D-Dimer VBG pH VBG pCO2 VBG pO2 VBG HCO3 VBG Total CO2 VBG O2 Saturation VBG Base Excess Sodium 143 Potassium 4.7 Chloride 107 Carbon Dioxide 28.2 Anion Gap 7.8 BUN 36 H Creatinine 1.5 H Est GFR (CKD-EPI 2020) 49.47 Glucose 95 Calcium 8.4 L Magnesium 1.9 Total Bilirubin AST ALT Alkaline Phosphatase Creatine Kinase Troponin I NT-Pro-B Natriuret Pep Total Protein Albumin Time Spent with Patient Time Spent with Patient: 35-49 minutes Time was spent: preparing to see the patient(eg.review tests), obtaining and/or reviewing separately otained hiistory, ordering medications,tests, procedures, referring, communicating with other health career technical education teacher, indepentently interpreting results, counseling the patient and care coordination
[2023-06-20 11:35] VITALS: PULSE 101; PULSE 109; PULSE 118; RESP 16; RESP 20; O2SAT 92; O2SAT 93; O2SAT 95
--- NOTE | 2023-06-20 14:14 | W.PALLCONSUL ---
Date of service: 06/20/23 Time of Service: 13:00 History of Present Illness Narrative: Mr. Boucher is a 72 y/o M currently inpatient at [facility] r/t SOB, anorexia, and weakness w/a fall; PMHx sig for NSCLC stage 4 w/ bone, juvenal and liver mets, COPD, HTN; h/o pericardial/pleural effusions; brother Aldair joins visit Hospital Course: presented to [facility] ED on 06/19 w/CC fall, SOB, anorexia, weakness, new onset BLE edema; work-up found pericardial and bilateral pleural effucions, diuresed w/Lasix; ECHO pending this morning, hypoalbumin thought to be 2/2 severe malnutrition, speech consult pending r/t dysphagia; he is deciding today if he would want an MRI or ot to r/o further osseous metastasis Sander lives alone in [place] 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 Law at [facility], receiving q3wk therapy w/docetaxel; he has recently started this new therapy after failing previous attempts, w/pericardial/pleural effusions thought to be contributing; Sander is not tolerating the new chemo well, reports GI sxs of diarrhea, w/incontinence, and constipation w/Imodium, he has decreased energy and appetite for up to a week afterwards, he states this month has been terrible; he has an appt on Monday w/oncology and would like to review oncology care, decision for ongoing treatment, doing something different, or discontinuing therapy; the cancer is going to win anyway; he denies pain currently; reports breathing is fine at rest, denies dyspnea, however w/limited activity does get SOB/dyspnea; was up walking today, felt good, able to tolerate; has not moved bowels in 3 days, was given med this morning, unsure of name; Agreeable to discussing ACP, AD and code status Goal: live as normal a life as possible, w/limited monitoring and interventions; he wants to return home today. Assessment and Plan Assessment and plan (1) Metastatic lung cancer (metastasis from lung to other site): Status: Acute Assessment and plan: f/b Dr. Law w/[facility], appt on Monday to review future GOC - see HPI currently on docetaxel q3wk cycle, major SE: diarrhea w/constipation, decreased energy/appetite consider hospice, pending oncology visit (2) Dysphagia: Status: Acute Assessment and plan: speech consult pending denies concerns today, admits decreased appetite (3) Discharge planning issues: Status: Acute Assessment and plan: Sander would like to return home today, if possible (4) Hypoalbuminemia: Status: Acute Assessment and plan: 2/2 severe malnutrition (5) Ambulatory dysfunction: Status: Acute Assessment and plan: recommend home w/HH PT encouraged ongoing walking (6) Bilateral lower extremity edema: Status: Acute Assessment and plan: improved w/diuresis (7) Bilateral pleural effusion: Status: Acute Assessment and plan: improved w/diuresis recurrent (8) Acute CHF: Status: Acute (9) Effusion, pericardium: Status: Acute Assessment and plan: improved w/diuresis recurrent (10) Palliative care encounter: Status: Acute Assessment and plan: PC will continue to follow Sander outpatient pending discharge f/u s/p Monday's oncology visit (11) Advance care planning: Status: Acute Assessment and plan: reviewed COLST, HCA, GOC regarding MRI and oncology treatment, spent 35 minutes in total on ACP DNR/I, limited interventions aimed at treating/curing new or reversible illnesses w/no major/invasive procedures/interventions, including no MRI at this time; no FT, trial IVF and antibiotics - HCA brother Aldair Peterson and son Leif Peterson Review of Systems Narrative: as per HPI PFSH All Active Problems (Updated 06/20/23 @ 14:27 by Janna Abreu NP) Advance care planning (Acute) Palliative care encounter (Acute) Dysphagia (Acute) Discharge planning issues (Acute) DVT prophylaxis (Acute) Hypoalbuminemia (Acute) CKD (chronic kidney disease) stage 3, GFR 30-59 ml/min (Chronic) Leucocytosis (Acute) 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 (Chronic) Ambulatory dysfunction (Acute) Bilateral lower extremity edema (Acute) Bilateral pleural effusion (Acute) Acute CHF (Acute) Bilateral lung cancer (Acute) Anemia (Chronic) Breath shortness (Acute) Acute pericardial effusion (Acute) Pleural effusion (Acute) Anemia (Chronic ~04/2023) 05/24/23 [facility] Hem/Onc Macular degeneration (senile) of retina (Acute) Poliomyelitis (Acute) at 5 years of age Encounter to establish care (Acute) Elevated blood pressure reading in office with diagnosis of hypertension (Acute) HTN (hypertension) with goal to be determined (Acute) IFG (impaired fasting glucose) (Acute) Colonoscopy refused (Acute) Failure to attend screening for abdominal aortic aneurysm (AAA) (Acute) Hyponatremia (Acute) Hyperkalemia (Acute) Pre-op evaluation (Acute) Abnormal blood chemistry (Acute) Hyponatremia (Acute) Screening for prostate cancer (Acute) Elevated PSA (Acute) Hyperkalemia (Acute) Hypertension (Chronic) Nicotine dependence, cigarettes, uncomplicated (Acute) Pulmonary nodule (Acute) Metastatic lung cancer (metastasis from lung to other site) (Acute) 03/07/22;[facility] hem/onc note; [id number] lung cancer stage IV with osseous metastases. 11/03/22 Restaging scan, on chemo 02/20/23 [facility] Hem/Onc - on chemo Adenopathy, hilar (Acute) 01/18/22-[facility] pulmonology consult note Mediastinal adenopathy (Acute) 01/18/22-[facility] pulmonology consult note S/P bronchoscopy (Acute) 01/25/22 procedure note-[facility] interventional pulmonology. Successful flexible bronchoscopy and EBUS-TBNA (5 sites) Brady Toure MD Secondary malignant neoplasm of bone (Acute) 02/10/22-[facility] Hem/Onc note; Paul Law MD Anemia due to antineoplastic chemotherapy (Acute ~04/2022) 05/02/22 [facility] Hem/Onc Abnormal blood level of magnesium (Acute) 05/02/22 [facility] Hem/Onc - started on magnesium Elevated serum creatinine (Acute ~09/2022) 10/17/22 [facility] Hem/Onc,pemetrex stopped. Effusion, pericardium (Acute ~11/2022) 12/05/22 [facility] Hem/Onc Pleural effusion, malignant (Acute) 01/03/23 Thoracic Recurrent pleural effusion on right (Acute) 01/03/23 Thoracic Surgery Medical History Abnormal chest CT Encounter for screening for lung cancer Smoker Surgical History History of bronchoscopy (~12/19/22) 12/19/22 01/05/23 Bronchoscopy and Thoracoscopy History of cataract surgery Family History Father Stroke Hypertension Mother Colon cancer high risk Cancer head and neck cancer, colon cancer Other Heart disease Social History Smoking/Tobacco Use Status: Current every day Tobacco Type: cigarettes Smoking packs per day: 0.25 Smoking cigarettes per day: 5.0 Years smoked: 50 Smoking pack-years: 12.50 Tobacco: How many years used: 50 Counseling given: provider counseling, support medications and patient declined Smoking risk assessment performed?: Yes Alcohol Intake: former Drug use: Never Substance use type: does not use Adopted: No Household members: none Housing: house Number of Children: 2 number of grandchildren: 5 Communication Needs: Corrective Lenses Do you need help understanding health information?: Rarely 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 Pets and animals: Yes Pets and animals: dog(s) What is your relationship status?: How often do you talk on the phone with friends or family?: three or more times per week How often do you get together with friends or relatives?: three or more times per week Panel score (0-1 are the most socially isolated patients): 2 What type of physical activity do you participate in: walking Duration: < 15 minutes/day Frequency: daily Seatbelt use: always Water heater temp set <120 deg: Yes Working smoke detector in home: Yes Fire extinguisher in home: Yes Carbon monox detector in home: Yes Firearms in home: Yes Firearms unloaded and locked: Yes Do you feel safe at home: Yes Do you feel safe in your relationship?: Yes Exam Narrative Exam Narrative: General: older than stated age appearing, chronically ill male; lying in bed throughout visit; cooperative; NAD HEENT: hearing WNL, MMM Resp: even, regular and unlabored, speaks full sentences w/no SOB, no audible wheeze or cough Skin: no rashes or lesions noted, did not conduct full skin exam Psych: MS appropriate, speech clear, normal affect/thought process; judgment/insight good Results Last Vital Signs Temp 97.7 F 06/20/23 07:30 Pulse 102 H 06/20/23 07:30 Resp 16 06/20/23 07:30 BP 103/66 06/20/23 07:30 Pulse Ox 96 06/20/23 08:00 Labs 06/20/23 05:36 06/20/23 05:36 Labs: Laboratory Results - last 24 hr 06/19/23 06/19/23 06/19/23 18:06 18:06 18:06 WBC 13.22 H RBC 3.65 L Hgb 9.8 L Hct 31.1 L MCV 85 MCH 26.8 L MCHC 31.5 L RDW 18.4 H Plt Count 268 MPV 11.0 Immature Gran % 0.6 Neutrophils % 81.4 Lymphocytes % 8.9 Monocytes % 8.7 Eosinophils % 0.1 Basophils % 0.3 Nucleated RBC % 0.0 Absolute Neutrophils 10.76 H Absolute Lymphocytes 1.18 L Absolute Monocytes 1.15 H Absolute Eosinophils 0.01 Absolute Basophils 0.04 D-Dimer 1148 H VBG pH VBG pCO2 VBG pO2 VBG HCO3 VBG Total CO2 VBG O2 Saturation VBG Base Excess Sodium 143 Potassium 4.9 Chloride 105 Carbon Dioxide 27.6 Anion Gap 10.4 BUN 36 H Creatinine 1.4 H Est GFR (CKD-EPI 2020) 53.74 Glucose 103 Calcium 9.0 Magnesium 2.1 Total Bilirubin 0.3 AST 13 L ALT 11 L Alkaline Phosphatase 88 Creatine Kinase Troponin I < 50 NT-Pro-B Natriuret Pep 2426 H Total Protein 6.3 L Albumin 1.7 L 06/19/23 06/19/23 06/19/23 18:06 18:06 20:06 WBC RBC Hgb Hct MCV MCH MCHC RDW Plt Count MPV Immature Gran % Neutrophils % Lymphocytes % Monocytes % Eosinophils % Basophils % Nucleated RBC % Absolute Neutrophils Absolute Lymphocytes Absolute Monocytes Absolute Eosinophils Absolute Basophils D-Dimer VBG pH 7.41 VBG pCO2 46 VBG pO2 24 VBG HCO3 29 H VBG Total CO2 28 VBG O2 Saturation 44 VBG Base Excess 5 H Sodium Potassium Chloride Carbon Dioxide Anion Gap BUN Creatinine Est GFR (CKD-EPI 2020) Glucose Calcium Magnesium Total Bilirubin AST ALT Alkaline Phosphatase Creatine Kinase 40 Troponin I < 50 NT-Pro-B Natriuret Pep Total Protein Albumin 06/20/23 06/20/23 05:36 05:36 WBC 9.65 RBC 3.04 L Hgb 8.2 L Hct 25.9 L MCV 85 MCH 27.0 MCHC 31.7 L RDW 18.3 H Plt Count 229 MPV 11.0 Immature Gran % 0.5 Neutrophils % 79.8 Lymphocytes % 9.3 Monocytes % 9.8 Eosinophils % 0.2 Basophils % 0.4 Nucleated RBC % 0.0 Absolute Neutrophils 7.69 H Absolute Lymphocytes 0.90 L Absolute Monocytes 0.95 H Absolute Eosinophils 0.02 Absolute Basophils 0.04 D-Dimer VBG pH VBG pCO2 VBG pO2 VBG HCO3 VBG Total CO2 VBG O2 Saturation VBG Base Excess Sodium 143 Potassium 4.7 Chloride 107 Carbon Dioxide 28.2 Anion Gap 7.8 BUN 36 H Creatinine 1.5 H Est GFR (CKD-EPI 2020) 49.47 Glucose 95 Calcium 8.4 L Magnesium 1.9 Total Bilirubin AST ALT Alkaline Phosphatase Creatine Kinase Troponin I NT-Pro-B Natriuret Pep Total Protein Albumin
--- NOTE | 2023-06-20 15:18 | PT.INIE ---
PT Notes Visit Reasons: Acute CHF,Pericardial Effusion,Metastatic Lung Physical Therapy Inpatient Initial Evaluation Date: 06/20/2023 Referring Doctor: Jessenia Parrish MD PT Orders: PT CONSULT: Limited ability Precautions: Fall. Standard. Activity as tolerated. Patient Profile/Admitting Diagnosis: Sander is a 72-year old male who presented to the ED on 06/19/2023 due to shortness of breath, weakness and fall, and new onset to be lower extremity edema. Patient is admitted for management of acute CHF, bilateral pleural effusion, bilateral LE edema, acute pericardial effusion, adenocarcinoma of the left lung, leukocytosis, ambulatory dysfunction, CKD, anemia, hypoalbuminemia, and dysphagia. PMHX: All Active Problems?(Updated 06/19/23 @ 21:39 by RANDAL Hicks) Bilateral lung cancer (Acute) Anemia (Chronic) Breath shortness (Acute) Acute pericardial effusion (Acute) Pleural effusion (Acute) Anemia (Chronic ~04/2023) 05/24/23 [facility] Hem/Onc Macular degeneration (senile) of retina (Acute) Poliomyelitis (Acute) at 5 years of age Encounter to establish care (Acute) Elevated blood pressure reading in office with diagnosis of hypertension (Acute) HTN (hypertension) with goal to be determined (Acute) IFG (impaired fasting glucose) (Acute) Colonoscopy refused (Acute) Failure to attend screening for abdominal aortic aneurysm (AAA) (Acute) Hyponatremia (Acute) Hyperkalemia (Acute) Pre-op evaluation (Acute) Abnormal blood chemistry (Acute) Hyponatremia (Acute) Screening for prostate cancer (Acute) Elevated PSA (Acute) Hyperkalemia (Acute) Hypertension (Chronic) Nicotine dependence, cigarettes, uncomplicated (Acute) Pulmonary nodule (Acute) Metastatic lung cancer (metastasis from lung to other site) (Acute) [place] [place] [id number] lung cancer stage IV with osseous metastases. 11/03/22 Restaging scan, on chemo 02/20/23 [facility] Hem/Onc - on chemo Adenopathy, hilar (Acute) 01/18/22-[facility] [place] pulmonology consult note Mediastinal adenopathy (Acute) 01/18/22-[facility] [place] pulmonology consult note S/P bronchoscopy (Acute) 01/25/22 procedure note-[facility] [place] interventional pulmonology. Successful flexible bronchoscopy and EBUS-TBNA (5 sites) Brady Toure MD Secondary malignant neoplasm of bone (Acute) 02/10/22-[facility] [place] Hem/Onc note; Paul Law MD Anemia due to antineoplastic chemotherapy (Acute ~04/2022) 05/02/22 [facility] Hem/Onc Abnormal blood level of magnesium (Acute) 05/02/22 [facility] Hem/Onc - started on magnesium Elevated serum creatinine (Acute ~09/2022) 10/17/22 [facility] Hem/Onc,pemetrex stopped. Effusion, pericardium (Acute ~11/2022) 12/05/22 [facility] Hem/Onc Pleural effusion, malignant (Acute) 01/03/23 Thoracic Recurrent pleural effusion on right (Acute) 01/03/23 Thoracic Surgery Medical History Abnormal chest CT Encounter for screening for lung cancer Smoker Surgical History?(Updated 02/17/23 @ 08:59 by Fito Pond MD) History of bronchoscopy (~12/19/22) 12/19/22 01/05/23 Bronchoscopy and Thoracoscopy D HHistory of cataract surgery Social History/Home Situation: Lives alone in a private home with a ramp to enter. Independent with all mobility ADL performance using no assistive device indoors. Occasionally uses front wheel walker Equipment Owned/DME: [facility] Subjective: Patient reports that he has been moving okay indoors without the need for an assistive device until yesterday when his legs became weak and caused him to fall. States that his brother Sriram helps out as needed with anything, neighbors are helpful as well. Adds that he has been on chemotherapy for his cancer. Objective: General Observation: Resting in bed. IV access through the left UE. Right leg and right foot muscle atrophy observed. B LE edema, grade II pitting Mental Status: Alert and oriented as to person, place, time, and purpose. Able to pay attention, focus, and respond appropriately. Pain: Denies Vital Signs: Closely monitored by nursing staff ROM: Right Upper Extremity: Shoulder Flexion lacks the last 50% of AROM. Shoulder abduction lacks the last 50% of AROM. Elbow flexion WFL. Wrist flexion WFL. Functional opening and closing of hand WFL. Left Upper Extremity: Shoulder Flexion lacks the last 50% of AROM. Shoulder abduction lacks the last 50% of AROM. Elbow flexion WFL. Wrist flexion WFL. Functional opening and closing of hand WFL. Right Lower Extremity: Hip flexion lacks the last 25% of AROM. Hip abduction WFL. Knee flexion WFL. Ankle dorsiflexion absent. Ankle plantarflexion WFL. Left Lower Extremity: Hip flexion WFL. Hip abduction WFL. Knee flexion WFL. Ankle dorsiflexion to neutral only. Ankle plantarflexion WFL. Strength: Right Upper Extremity: Shoulder flexors 3-/5. Shoulder abductors 3-/5. Elbow flexors 4/5. Elbow extensors 4/5. Budget Specialist strong. Left Upper Extremity: Shoulder flexors 3-/5. Shoulder abductors 3-/5. Elbow flexors 4/5. Elbow extensors 4/5. Budget Specialist strong. Right Lower Extremity: Hip flexors 3-/5. Hip abductors 3-/5. Knee flexors 4-/5. Knee extensors 4-/5. Ankle dorsiflexors 0/5. Ankle plantarflexors 1/5. Left Lower Extremity: Hip flexors 4-/5. Hip abductors 4-/5. Knee flexors 4-/5. Knee extensors 4-/5. Ankle dorsiflexors 3-/5. Ankle plantarflexors 4-/5. Bed Mobility/Transfers: Rolling independent Supine to sit independent Sit to stand supervision, cues needed for use of B UE Stand to sit supervision, cues needed for use of B UE Gait: Instructed patient with level surface ambulation of 100 feet requiring stand by assist. Daija decreased. Step height on R decreased. Step length on R decreased. No path deviation. No sensation of buckling nor giving way in B knees. Did report of fatigue after activity. Minimal shortness of breath subsided with rest. Balance: Static Sitting: Normal Dynamic Sitting: Normal Static Standing: Fair Dynamic Standing: Fair Special Tests: Mobility Limitations Standardized Measure [facility] AM-PAC 6 clicks Basic Mobility Inpatient Short Form: Raw Score: 23 CMS Score: 11% deficit Informed Consent/Education: Patient was instructed in purpose of PT consult and plan of care. Agreeable to proceed with established PT POC to achieve personal goals. Assessment: Patient demonstrates functional mobility decline requiring the use of front-wheeled walker for indoor ambulation to reduce fall risk. Has been trained to use bilateral axillary crutches through narrow areas like his bathroom by PATRICIA Sheriff (refer to ROUGH PATCHER notes). He goes home with PT to regain prior level of function. Patient presents with clinical signs and symptoms consistent with current/admitting diagnoses that have resulted to mobility limitations, gait instability, generalized weakness, and overall ADL decline as demonstrated by the following impairment level findings: 1. Decreased strength to B UE/LE major muscle groups with R LE more affected due to pre-existing chronic polio 2. Impaired sitting/standing balance 3. Impaired activity tolerance 4. Limitation of joint range of motion in R ankle 5. Shortness of breath 6. Swelling in B LE Impairments are contributing to the following functional limitations: 1. Decline in bed mobility skills 2. Decline in transfer skills 3. Difficulty with ambulation without assistive device 4. Increased completion time for mobility ADL performance 5. Increased risk for falls 6. Difficulty with managing steps alone safely Patient is assessed as a [id number] moderate complexity based on the following: History: 72-year-old male with past medical history as indicated above Examination: Demonstrable impairment in strength, balance, and mobility level with underlying impairments and functional limitations as exhibited above as well as deficit score of 11% utilizing the [facility] Mobility Inpatient Short Form Presentation: Evolving Decision Makin moderate complexity Goals: N/A. PT evaluation and one treatment session only. Plan of Care/Treatment Plan: N/A. PT evaluation and one treatment session only. DISCHARGE RECOMMENDATIONS: [] Home with no services [] [X] Home with services. N/A. Patient will benefit from home health PT services in order to progress mobility level using least restrictive assistive ambulatory device, assess home safety, identify additional equipment needs, and establish a functional maintenance program that will increase ability of patient to remain at home. [] Home with outpatient PT [] [] SNF for continued rehabilitation [] [] [facility] [] [] SNF versus LTC based on ability to participate and progress [] TREATMENT CODE/TIME: 38280 x 26 minutes beginning at 14:48 PM. Thank you for the opportunity to participate in the care of this patient. Sugey Duvall PT, DPT, CLT [facility] [place], [place]
--- NOTE | 2023-06-20 15:20 | PDOC.HHF2F_ITS ---
Home Health Referral Home Health Orders Clinical synopsis of why skilled professionals are needed: Mr Peterson is a 72 year old male with PMHx of adenocarcinoma of the left lung stage 4 w/ mets to R lung, lymph nodes, bone, and liver, on palliative chemotherapy with docetaxel as well as denosumab, last treatment on 05/29/23,? h/o recurrent pleural effusion, pericardial effusion without cardiac tamponade s/p pericardial window and pleurodesis, (neither pericardial effusion nor pleural effusions were FDG-avid on PET CT), hypertension, who presented to [facility] ED today with weakness, having an episode today of his legs giving out and having to? lower himself to the ground, as well as progressively worsening shortness of breath and BLE edema. He was standing by the kitchen counter when the fall happened. He states his legs had never given out like that before. He now has numbness in his BLEs. This started after the fall. He states he did not hurt his back and he has no pain in his back. He also denies saddle anesthesia. Medical diagnosis necessitation home health referral: Metastatic adenocarcinoma of lungs with bony mets. Ambulatory dysfunction. Registered Nurse: Check all that apply Assess for exacerbation of medical condition, instruct patient/caregivers on signs and symptoms to report for early detection: Ordered Physical Therapist: Check all that apply Fall reduction therapy program for patient with history of frequent falls: Ordered Home Bound Status Requires the aid of supportive device (check all that apply): Walker Assistance of another person (Describe assistance and medical necessity): Bony mets secondary to adenocarcinoma of lungs. BLE weakness/paresthesia. Requires assistance with ambulation when out of the home. Describe why leaving home would require a considerable and taxing effort: Requires frequent rest periods Encounter Date and Reason: I certify that a FTF encounter for this patient was performed on June 20, 2023 and that such encounter was related to the primary reason the patient requires home health services. The encounter was conducted in the following manner: * By me as the certifying physician, EDUCATIONAL SPECIALIST, PA or * By an inpatient physician, EDUCATIONAL SPECIALIST or PA during an inpatient stay who communicated findings to me, Certification And Authentication I certify that I composed the above information based on my clinical judgment relating to this patient's medical condition and, if applicable, clinical findings communicated to me by the NPP or inpatient physician who performed the FTF encounter. Name of Provider that will be monitoring home health services: Fito Parmar
--- NOTE | 2023-06-20 15:26 | CHAPLAIN ---
Sander was resting bed when I visited. He had two people with him. According to ED notes, Sander's son was home recently but lives in [place]. Sander has a brother and neighbors who check on him on a regular basis. I explained my role and offered support.
[2023-06-20 15:28] VITALS: BP 112/69; PULSE 109; RESP 16; TEMP 36.5; O2SAT 95
--- NOTE | 2023-06-20 15:50 | DSE_ITS ---
Date of service: 06/20/23 Time of Service: 15:51 DS: Diagnosis Discharge Diagnosis (1) Metastatic lung cancer (metastasis from lung to other site): Status: Acute Asessment and Plan: Stage 4 with mets to right lung, nodes, liver, bone. On palliative chemo; inoperable. Palliative care met with patient for the first time today. He wants to go home and discuss any further care with his oncologist. Home health nursing and PT ordered. He walked with PT and did OK with a walker when he wore his ankle high lace-up boots. He felt more stable in those than just in sock footies. (2) Dysphagia: Status: Acute Asessment and Plan: Speech was not available. He wanted to forgo speech eval at this time and preferred to be discharged to home. He can certainly discuss this further with his PCP and/or oncologist. (3) Discharge planning issues: Status: Acute Asessment and Plan: DNR/DNI Home with home health nursing and PT. F/U with oncology regarding any further treatments. Palliative to follow. (4) Hypoalbuminemia: Status: Acute Asessment and Plan: Encourage adequate protein and caloric intake. (5) Ambulatory dysfunction: Status: Acute Asessment and Plan: Concerning for spinal mets. He declined an MRI at this time. Home health PT. Use of walker or crutches. He did well with both. (6) Bilateral lower extremity edema: Status: Acute Asessment and Plan: Volume overload. He was given IV lasix initially and will d/c on lasix 20mg daily. His K is currently normal and would encourage repeating level at PCP follow up. (7) Bilateral pleural effusion: Status: Acute Asessment and Plan: Lasxi 20mg daily. Likely cardiac but could be cancer related. (8) Acute CHF: Status: Acute Asessment and Plan: No echocardiogram availability during this hospitalization. If he opts for further treatment this can be arranged as outpt. (9) Effusion, pericardium: Status: Acute Asessment and Plan: No tamponade. (10) Palliative care encounter: Status: Acute Asessment and Plan: To follow as outpt. 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 h/o recurrent pleural effusion, pericardial effusion without cardiac tamponade s/p pericardial window and pleurodesis, (neither pericardial effusion nor pleural effusions were FDG-avid on PET CT), hypertension, who presented to [facility] ED today with weakness, having an episode today of his legs giving out and having to? lower himself to the ground, as well as progressively worsening shortness of breath and BLE edema. He was standing by the kitchen counter when the fall happened. He states his legs had never given out like that before. He now has numbness in his BLEs. This started after the fall. He states he did not hurt his back and he has no pain in his back. He also denies saddle anesthesia. He has hesitancy on initiation of urination, and he has had intermittent diarrhea/constipation with accidents without him being aware. The breathing is worse on exertion, after 5-6 steps. He does have a cough productive of yellow sputum (no change in color recently). He has noticed leg swelling two days ago. He denies fevers.? CTA of the chest excluded acute PE, but did show diffuse metastatic disease in the right pleural space, right lung, Bilateral (L>R) pleural effusions), a large pericardial effusions, and possible osseous metastatic disease. POCUS echocardiogram in the ER confirmed a pericardial effusion and showed no evidence of cardiac tamponade, and the EKG also did not reveal the classic findings of tamponade. Clinically, the patient was felt to be in CHF. He was tripoding and tachypneic,? but not requiring oxygen. He received a nebulizer treatment as well as a dose of furosemide 20 mg IV with improvement in symptoms. Hospitalist admission was requested. The patient is considering stopping chemotherapy because he had not had a good month. He has had a hard time eating and drinking because of a pain in his right neck/floor of the mouth,? He is ok with being seen by palliative care, PT, OT, speech. He does not want telemetry. We decided he would consider whether or not he would want an MRI.? He has a waker and a cane, but does not use them. He lives alone. His brother visits him daily. He endorses having involved neighbors. See diagnosis Home Meds and New Rx's Prescriptions: New furosemide 20 mg tablet 20 mg PO DAILY Qty: 10 0RF Continued acetaminophen 325 mg capsule 325 mg PO Q4H PRN metoprolol succinate 50 mg tablet extended release 24 hr 50 mg PO DAILY Qty: 90 3RF lorazepam 0.5 mg tablet 0.5 mg PO .1-2 tabs prior MRI PRN sennosides [senna] 8.6 mg tablet 17.2 mg PO DAILY loperamide [Imodium A-D] PO PRN Rx Instructions: as directed calcium 250 mg Tablet 250 mg PO BID Discontinued amlodipine 10 mg tablet 10 mg PO DAILY Qty: 90 3RF Hold Instructions: 05/01/23 On HOLD per [facility]. Patient Comments: pt states he does not take docusate sodium [Colace] 100 mg capsule 100 mg PO TID PRN (Reason: x 10 days) Discharge Instructions Activity:: Activity as Tolerated Equipment/Supplies:: Crutches Diet:: As Tolerated Discharge Orders Discharge Orders: Discharge Order (Routine); Ordered 06/20/23 Ordered By: Fito Parmar DS: Summary Time Spent with Patient providing and/or coordinating discharge services: Greater than 30 minutes Status at Discharge Functional status at discharge: uses cane/walker Overall status at discharge: patient is not back to baseline Mental Status: mental status grossly normal Speech and Movement: speech clear Mood: congruent mood Affect: normal affect Exam Narrative Exam Narrative: General: Very pleasant elderly male with rastafari wasting, appears comfortable lying supine. Neurological: A&Ox3, CN II-XII intact, R foot drop (from h/o polio, chronic), preserved sensation in BLEs Psychiatric: Appropriate speech pattern/content. Affect appropriate. Skin: Visible skin dry, intact HEENT: Sclera clear, dry MM Cardiovascular: RRR Lungs: Diminished dull breath sounds B. Nonlabored breathing. Gastrointestinal: soft,nontender, nondistended Extremities: +1 BLE edema, no calf tenderness. Psych Mental Status: mental status grossly normal Speech and Movement: speech clear Mood: congruent mood Affect: normal affect DS: Data Vitals/I&O Vitals and I&O: Vital Signs Temperature 36.5 C 06/20/23 15:28 Temperature Source Tympanic 06/20/23 15:28 Pulse 109 H 06/20/23 15:28 Pulse Rhythm Regular 06/20/23 15:44 Respiratory Rate 16 06/20/23 15:28 Respiratory Effort Short of Breath 06/20/23 15:44 Respiratory Depth Normal 06/20/23 15:44 Respiratory Pattern Normal 06/20/23 15:44 Blood Pressure 112/69 06/20/23 15:28 Blood Pressure Position Sitting 06/19/23 16:55 Pulse Oximetry 95 06/20/23 15:28 Oxygen Delivery Method Room Air 06/20/23 15:28 Oxygen Flow Rate 0 06/20/23 15:28 Pain Level 0 06/20/23 15:28 Comment pt states he just got done walking with PT 06/20/23 15:28 Intake & Output 06/19/23 06/20/23 06/20/23 23:59 11:59 23:59 Intake Total 240 / 240 Output Total 400 / 600 200 / 600 Balance -400 / -360 40 / -360 Weight 53.977 kg 53.9 kg Intake: Oral 240 / 240 Output: Urine 400 / 600 200 / 600 Other: Urine Color Yellow Yellow Urine Appearance Clear Clear Urine Odor None Data Completed and Pending Labs on day of discharge: Labs from last 24 hours 06/20/23 06/20/23 06/19/23 05:36 05:36 20:06 WBC 9.65 RBC 3.04 L Hgb 8.2 L Hct 25.9 L MCV 85 MCH 27.0 MCHC 31.7 L RDW 18.3 H Plt Count 229 MPV 11.0 Immature Gran % 0.5 Neutrophils % 79.8 Lymphocytes % 9.3 Monocytes % 9.8 Eosinophils % 0.2 Basophils % 0.4 Nucleated RBC % 0.0 Absolute Neutrophils 7.69 H Absolute Lymphocytes 0.90 L Absolute Monocytes 0.95 H Absolute Eosinophils 0.02 Absolute Basophils 0.04 D-Dimer VBG pH VBG pCO2 VBG pO2 VBG HCO3 VBG Total CO2 VBG O2 Saturation VBG Base Excess Sodium 143 Potassium 4.7 Chloride 107 Carbon Dioxide 28.2 Anion Gap 7.8 BUN 36 H Creatinine 1.5 H Est GFR (CKD-EPI 2020) 49.47 Glucose 95 Calcium 8.4 L Magnesium 1.9 Total Bilirubin AST ALT Alkaline Phosphatase Creatine Kinase Troponin I < 50 NT-Pro-B Natriuret Pep Total Protein Albumin 06/19/23 06/19/23 06/19/23 18:06 18:06 18:06 WBC RBC Hgb Hct MCV MCH MCHC RDW Plt Count MPV Immature Gran % Neutrophils % Lymphocytes % Monocytes % Eosinophils % Basophils % Nucleated RBC % Absolute Neutrophils Absolute Lymphocytes Absolute Monocytes Absolute Eosinophils Absolute Basophils D-Dimer 1148 H VBG pH 7.41 VBG pCO2 46 VBG pO2 24 VBG HCO3 29 H VBG Total CO2 28 VBG O2 Saturation 44 VBG Base Excess 5 H Sodium Potassium Chloride Carbon Dioxide Anion Gap BUN Creatinine Est GFR (CKD-EPI 2020) Glucose Calcium Magnesium Total Bilirubin AST ALT Alkaline Phosphatase Creatine Kinase 40 Troponin I NT-Pro-B Natriuret Pep Total Protein Albumin 06/19/23 06/19/23 18:06 18:06 WBC 13.22 H RBC 3.65 L Hgb 9.8 L Hct 31.1 L MCV 85 MCH 26.8 L MCHC 31.5 L RDW 18.4 H Plt Count 268 MPV 11.0 Immature Gran % 0.6 Neutrophils % 81.4 Lymphocytes % 8.9 Monocytes % 8.7 Eosinophils % 0.1 Basophils % 0.3 Nucleated RBC % 0.0 Absolute Neutrophils 10.76 H Absolute Lymphocytes 1.18 L Absolute Monocytes 1.15 H Absolute Eosinophils 0.01 Absolute Basophils 0.04 D-Dimer VBG pH VBG pCO2 VBG pO2 VBG HCO3 VBG Total CO2 VBG O2 Saturation VBG Base Excess Sodium 143 Potassium 4.9 Chloride 105 Carbon Dioxide 27.6 Anion Gap 10.4 BUN 36 H Creatinine 1.4 H Est GFR (CKD-EPI 2020) 53.74 Glucose 103 Calcium 9.0 Magnesium 2.1 Total Bilirubin 0.3 AST 13 L ALT 11 L Alkaline Phosphatase 88 Creatine Kinase Troponin I < 50 NT-Pro-B Natriuret Pep 2426 H Total Protein 6.3 L Albumin 1.7 L PFSH All Active Problems Advance care planning (Acute) Palliative care encounter (Acute) Dysphagia (Acute) Discharge planning issues (Acute) DVT prophylaxis (Acute) Hypoalbuminemia (Acute) CKD (chronic kidney disease) stage 3, GFR 30-59 ml/min (Chronic) Leucocytosis (Acute) 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 (Chronic) Ambulatory dysfunction (Acute) Bilateral lower extremity edema (Acute) Bilateral pleural effusion (Acute) Acute CHF (Acute) Bilateral lung cancer (Acute) Anemia (Chronic) Breath shortness (Acute) Acute pericardial effusion (Acute) Pleural effusion (Acute) Anemia (Chronic ~04/2023) 05/24/23 [facility] Hem/Onc Macular degeneration (senile) of retina (Acute) Poliomyelitis (Acute) at 5 years of age Encounter to establish care (Acute) Elevated blood pressure reading in office with diagnosis of hypertension (Acute) HTN (hypertension) with goal to be determined (Acute) IFG (impaired fasting glucose) (Acute) Colonoscopy refused (Acute) Failure to attend screening for abdominal aortic aneurysm (AAA) (Acute) Hyponatremia (Acute) Hyperkalemia (Acute) Pre-op evaluation (Acute) Abnormal blood chemistry (Acute) Hyponatremia (Acute) Screening for prostate cancer (Acute) Elevated PSA (Acute) Hyperkalemia (Acute) Hypertension (Chronic) Nicotine dependence, cigarettes, uncomplicated (Acute) Pulmonary nodule (Acute) Metastatic lung cancer (metastasis from lung to other site) (Acute) [place] [place] msi-hdywm-[place] lung cancer stage IV with osseous metastases. 11/03/22 Restaging scan, on chemo 02/20/23 [facility] Hem/Onc - on chemo Adenopathy, hilar (Acute) [place] [place] Mediastinal adenopathy (Acute) [place] [place] S/P bronchoscopy (Acute) 01[place]25/22 [place] [place]. Successful flexible bronchoscopy and EBUS-TBNA (5 sites) Brady Toure MD Secondary malignant neoplasm of bone (Acute) [place] [place] Paul Law MD Anemia due to antineoplastic chemotherapy (Acute ~04/2022) 05/02/22 [facility] Hem/Onc Abnormal blood level of magnesium (Acute) 05/02/22 [facility] Hem/Onc - started on magnesium Elevated serum creatinine (Acute ~09/2022) 10/17/22 [facility] Hem/Onc,pemetrex stopped. Effusion, pericardium (Acute ~11/2022) 12/05/22 [facility] Hem/Onc Pleural effusion, malignant (Acute) 01/03/23 Thoracic Recurrent pleural effusion on right (Acute) 01/03/23 Thoracic Surgery Medical History Abnormal chest CT Encounter for screening for lung cancer Smoker Surgical History History of bronchoscopy (~12/19/22) 12/19/22 01/05/23 Bronchoscopy and Thoracoscopy History of cataract surgery Family History Father Stroke Hypertension Mother Colon cancer high risk Cancer head and neck cancer, colon cancer Other Heart disease Social History Smoking/Tobacco Use Status: Current every day Tobacco Type: cigarettes Smoking packs per day: 0.25 Smoking cigarettes per day: 5.0 Years smoked: 50 Smoking pack-years: 12.50 Tobacco: How many years used: 50 Counseling given: provider counseling, support medications and patient declined Smoking risk assessment performed?: Yes Alcohol Intake: former Drug use: Never Substance use type: does not use Adopted: No Household members: none Housing: house Number of Children: 2 number of grandchildren: 5 Communication Needs: Corrective Lenses Do you need help understanding health information?: Rarely 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 Pets and animals: Yes Pets and animals: dog(s) What is your relationship status?: How often do you talk on the phone with friends or family?: three or more times per week How often do you get together with friends or relatives?: three or more times per week Panel score (0-1 are the most socially isolated patients): 2 What type of physical activity do you participate in: walking Duration: < 15 minutes/day Frequency: daily Seatbelt use: always Water heater temp set <120 deg: Yes Working smoke detector in home: Yes Fire extinguisher in home: Yes Carbon monox detector in home: Yes Firearms in home: Yes Firearms unloaded and locked: Yes Do you feel safe at home: Yes Do you feel safe in your relationship?: Yes Time Spent with Patient Time Spent with Patient: 45-69 minutes Time was spent: preparing to see the patient(eg.review tests), obtaining and/or reviewing separately otained hiistory, referring, communicating with other health care aid, indepentently interpreting results, counseling the patient and care coordination
--- NOTE | 2023-06-20 16:00 | PT.INTREAT ---
Date of service: 06/20/23 Time of Service: 15:46 PT Notes Visit Reasons: Acute CHF,Pericardial Effusion,Metastatic Lung Inpatient Physical Therapy Treatment Note [facility] Date: 06/20/23 PRECAUTIONS: Fall, standard, activity as tolerated SUBJECTIVE: patient sitting EOB, agreeable to practice with crutches OBJECTIVE: PAIN: BED MOBILITY/TRANSFERS Sit-stand: independent Stand-sit: independent Bed-Chair: CGA Chair-bed: CGA GAIT Assistive Device: crutches Weight bearing: Assist: CGA with gait belt. Distance: 20 feet Deviation: Instructed patient on moving bilateral crutches with affected leg, patient moves cautiously in antalgic, step-to fashion with right leg leading. Reports he cant go too far without boots, but declined to put boots on. Patient reports initially being concerned about his balance, however after several steps reports that he feels confident with the crutches. ASSESSMENT: Patient tolerates therapy well, feels crutches will work better than the walker he currently has in his home. PLAN: Patient planning to discharge home this afternoon. Per PT, gait training with crutches will enable patient to maneuver safely within his home especially since his FWW does not fit well into his bathroom. TREATMENT CODE/TIME: 86203 gait training 12 minutes beginning at 15:46
--- NOTE | 2023-06-21 07:59 | OTDS_ITS ---
Occupational Therapy Notes Occupational Therapy Inpatient Discharge Summary Date: 06/21/23 Dates of Service: 06/20/23-06/21/23 Referring Doctor: Jessenia Parrish MD OT Orders: Non Urgent Precautions: Fall, standard, DNR/DNI *This document serves as a summary of care, no skilled OT services were provided for this documentation* PATIENT PROFILE/ADMITTING DIAGNOSIS: Pt is a 72 year old male who was admitted through the ED after a fall at home and was admitted to Med Surg with the dx of dysphagia, hypoalbuminenia, CKD, leucocytosis, adenocarcinoma of (L) 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, ambulatory dysfunction, (B) LE edema, (B) pleural effusion, Acute CHF, (B) lung cancer, SOB, acute pericardial effusion. 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 (Chronic) Ambulatory dysfunction (Acute) Bilateral lower extremity edema (Acute) Bilateral pleural effusion (Acute) Acute CHF (Acute) Bilateral lung cancer (Acute) Anemia (Chronic) Breath shortness (Acute) Acute pericardial effusion (Acute) Pleural effusion (Acute) Anemia (Chronic ~04/2023) 05/24/23 [facility] Hem/OncMacular degeneration (senile) of retina (Acute) Poliomyelitis (Acute) [facility] 5 [facility] (Ac[facility]) Elevated blood pressure reading in office with diagnosis of hypertension (Acute) HTN (hypertension) with goal to be determined (Acute) IFG (impaired fasting glucose) (Acute) Colonoscopy refused (Acute) Failure to attend screening for abdominal aortic aneurysm (AAA) (Acute) Hyponatremia (Acute) Hyperkalemia (Acute) Pre-op evaluation (Acute) Abnormal blood chemistry (Acute) Hyponatremia (Acute) Screening for prostate cancer (Acute) Elevated PSA (Acute) Hyperkalemia (Acute) Hypertension (Chronic) Nicotine dependence, cigarettes, uncomplicated (Acute) Pulmonary nodule (Acute) Metastatic lung cancer (metastasis from lung to other site) (Acute) [place]07[place]22[place] [place]; zec-ampeb-voyl lung cancer stage IV with osseous metastases. 11/03/22 Restaging scan, on chemo 02/20/23 [facility] Hem/Onc - on chemoAdenopathy, hilar (Acute) [place] [place] note[place]iastinal adenopathy (Acute) [place] [place]oscopy (Acute) 01/25/22 [place] [place]. Successful flexible bronchoscopy and EBUS-TBNA (5 sites) Brady Toure, [facility] malignant neoplasm of bone (Acute) [place] [place]; Paul Law, MDAnemia due to antineoplastic chemotherapy (Acute ~04/2022) 05/02/22 [facility] Hem/OncAbnormal blood level of magnesium (Acute) 05/02/[address] [facility] Hem/Onc - started on magnesiumElevated serum creatinine (Acute ~09/2022) 10/17/22 [facility] Hem/Onc,pemetrex stopped.Effusion, pericardium (Acute ~11/2022) 12/05/22 [facility] Hem/OncPleural effusion, malignant (Acute) 01/03/23 ThoracicRecurrent pleural effusion on right (Acute) 01/03/23 Thoracic Surgery Medical History Abnormal chest CT Encounter for screening for lung cancer Smoker Surgical History? History of bronchoscopy (~12/19/22) 12/19/22 01/05/23 Bronchoscopy and Thoracoscopy DHHistory of cataract surgery Social History/Home Situation: Pt lives alone in a private home. He has a brother and 3 neighbors that are his social support. He notes that he has stairs to enter his home but doesn't need to use them. He does drive (I) and prepares his meals. His brother does his grocery shopping for him. He states that he performs his bathing standing at the sink. He does report that he has difficulty with conserving his energy. He has been trying to make less trips for tasks. OT provided pt with tips on energy conservation to (A) with this which he is receptive to this. Equipment owned/DME: None SUBJECTIVE:?NT OBJECTIVE:? ROM: RUE AROM WFL L UE AROM WFL STRENGTH: RUE shoulder flexion 4-/5, bicep 4/5, tricep, 4/5, steam flattener is 4/5 and symmetrical LUE shoulder flexion 4+/5, bicep 4-/5, tricep, 4/5, steam flattener is 4/5 and symmetrical FUNCTIONAL MOBILITY/ADLS:? *Based on evaluation on 06/20/23, no skilled OT services were performed on this date* BATHING AROM WFL to perform (I). He performs this standing at sink with HOS (hand on sink support) for performance at home (I). DRESSING seated Dressing LE (I) don and doffing (B) socks EATING (I) but notes that he does have difficulty at times with swallowing due to sores in his mouth from his teeth which he contributes to weight loss. BALANCE: Static sitting Normal Dynamic Sitting Normal ASSESSMENT:?? Patient is a 72-year-old male referred to occupational therapy services with diagnosis of dysphagia, hypoalbuminenia, CKD, leucocytosis, adenocarcinoma of (L) 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, ambulatory dysfunction, (B) LE edema, (B) pleural effusion, Acute CHF, (B) lung cancer, SOB, acute pericardial effusion.Patient was seen for OT consult and later discharged that day. GOALS Goals x1 week- not met, seen for OT consult only. 1.? Transfers (I) 2.? Dressing seated (I) 3.? Bathing standing at sink (I) 4.? Toileting on toilet (I) 5.? Eating (I) PLAN OF CARE/TREATMENT PLAN: Pt was discharged post evaluation. Discharge from skilled OT services at this time. DISCHARGE RECOMMENDATIONS Home when medically cleared per MD pending PT consult for functional mobility OT recommends the following adaptive equipment/services: * PLANT TECH consult outpatient for chewing and swallowing. Pt states that he has lost a lot of weight and his teeth do not fit well which causes sores in his mouth and difficulty with swallowing his food. OT recommends PLANT TECH consult to (A) pt with ideas on better chewing mechanics to decrease safety issue. * Raised toilet seat- to increase pts safety with toileting routines and decrease un-needed energy expenditure throughout. TREATMENT TIME/MINUTES/CODES N/A Sharon Elmore, OTR/L [facility] [place], [place]
== END 2023-06-20 17:23 | disposition home health service (06) | DRG 292 ==
LOC: ER 21:17 → MS 21:35
PROVIDERS: Admitting Provider Internal Medicine; Emergency Provider Physician Assistant; PCP Nurse Practitioner; Visit Provider Internal Medicine
DX: I13.0 Hypertensive heart and chronic kidney disease with heart failure and stage 1 through stage 4 chronic kidney disease, or unspecified chronic kidney disease (principal); C34.91 Malignant neoplasm of unspecified part of right bronchus or lung; C34.92 Malignant neoplasm of unspecified part of left bronchus or lung; C78.7 Secondary malignant neoplasm of liver and intrahepatic bile duct; C79.51 Secondary malignant neoplasm of bone; J91.0 Malignant pleural effusion; I30.9 Acute pericarditis, unspecified; E87.1 Hypo-osmolality and hyponatremia; C77.1 Secondary and unspecified malignant neoplasm of intrathoracic lymph nodes; I50.9 Heart failure, unspecified; R13.10 Dysphagia, unspecified; N18.30 Chronic kidney disease, stage 3 unspecified; E88.09 Other disorders of plasma-protein metabolism, not elsewhere classified; D72.829 Elevated white blood cell count, unspecified; Z86.12 Personal history of poliomyelitis; R73.01 Impaired fasting glucose; E87.5 Hyperkalemia; F17.200 Nicotine dependence, unspecified, uncomplicated; D64.81 Anemia due to antineoplastic chemotherapy; Z66 Do not resuscitate; R26.2 Difficulty in walking, not elsewhere classified; W19.XXXA Unspecified fall, initial encounter; R20.2 Paresthesia of skin
CPT/HCPCS: 36415; 71275; 80048; 80053; 82550; 82805; 93005; 94618; 96374; 97116; 97162; 97165; 97535; 99285; J1650; 71045; 83735; 83880; 84484; 85025; 85379; 93010; 93970; 94640; 94667; 94760; 99223; 99232; 99239; J1941; J3490; J7620

== ENCOUNTER 2023-06-21 09:31 | Emergency (ER) | payer MEDICARE, SELFPAY ==
[2023-06-21] VITALS (22 sets, daily range): BP systolic 117–151; BP diastolic 61–88; PULSE 76–109; RESP 18–54; TEMP 36.8; O2SAT 94–97
--- NOTE | 2023-06-21 09:30 | RT.EKG_ITS ---
APPROVED REPORT Exam: Resting ECG Reason for Exam: sob Patient Location: E HR:105 bpm ECG Measurements Heart Rate 105 AXIS AR 165 P 43 QRSd 71 QRS 49 QT 341 T 33 QTc 439 Conclusion Sinus rhythm...normal P axis, V-rate 60- 99 Paired ventricular premature complexes...sequence of 2 V complexes Low voltage, extremity leads...all extremity leads <0.5mV sinus rhtyhm, normal axis, normal intervals, non ischemic
--- NOTE | 2023-06-21 09:45 | DI.RAD_ITS ---
Exam(s) XR CHEST 2V PA LATERAL EXAM: XR CHEST 2V PA LATERAL CLINICAL HISTORY: lung ca, weakness TECHNIQUE: 2D digital imaging was performed of the chest. Two images were obtained. PA and lateral views were obtained. COMPARISON: CR XR CHEST 2V PA LATERAL from 12/11/2020 CR,XR XR PORTABLE CHEST AP from 06/19/2023 FINDINGS: MEDIASTINUM: Normal. HEART: Normal. PULMONARY VASCULATURE: Normal. LUNGS: Stable pleural thickening and infiltrate in the right lung. The left lung is clear. PLEURAL SPACE: Bilateral pleural effusions, left greater than right. No pneumothorax. BONE:Within normal limits for the patient's age. OTHER FINDINGS:Normal. IMPRESSION: Radiographically, there does not appear to be any significant change in appearance of the chest bobby red to 06/19/2023. DATA REPOSITORY: RADIATION DOSE DELIVERED:
--- NOTE | 2023-06-21 09:50 | DI.CT_ITS ---
Exam(s) CT ABDOMEN PELVIS W EXAM: CT ABDOMEN PELVIS W CLINICAL HISTORY: lower abdominal pain TECHNIQUE: Imaging Protocol: Axial computed tomography images with coronal and sagittal reformatted images were created and reviewed CONTRAST MATERIAL: Intravenous: Omnipaque 350 Contrast volume:100 mL Oral: None COMPARISON: CT CT CHEST/ABD/PEL W from 03/30/[address] CHEST PE CTA from 06/19/2023 FINDINGS: ABDOMEN: Lung Bases: The lung bases again show a large left pleural effusion. There is a pericardial effusion measuring up to 2.2 cm in thickness. There is apparent progression of the nodular pleural enhanceme nt in the right hemithorax. There are are again seen enhancing nodules in the subcutaneous tissues a long the right chest wall. The extent of disease has progressed since the prior examination. There is a right pleural effusion and consolidation in the right lower lobe. There also enhancing nodule s een in the mediastinum associated with the pericardium and retroperitoneum. The left lung is clear. Liver: Normal density. There appear to have been an increase in number of the hypodensities in the li herb suspicious for metastases. Portal, Superior Mesenteric, and Splenic Veins: Unremarkable. Gallbladder and Biliary Tract: No radiodense calculus or dilation. Pancreas: Normal density, no abnormal calcifications or inflammatory process. Spleen: Calcified granuloma are seen in the spleen. Adrenals: No masses seen. Kidneys: Normal size, contour and axis. There is bilateral nephrolithiasis. No hydronephrosis. No m asses seen. Abdominal Aorta: Abdominal portion non-dilated. There is extensive atherosclerosis present. This dhillon s result in significant stenosis in the external iliac arteries bilaterally. Bowel: There is a large amount of stool in the rectum. No rectal wall thickening. There is a modera te amount of stool throughout the colon. There is no evidence of bowel obstruction or bowel wall thi ckening. No evidence of appendicitis. Peritoneal Cavity: There is a small amount of pelvic ascites. No free air.There are enhancing nodule seen in the left periaortic soft tissues and near the diaphragm hiatus. Lymph Nodes: Within normal limits. Bones: There is a mottled appearance of the bones suspicious for metastatic disease. Soft Tissues: There are new enhancing nodule seen in the subcutaneous tissues in the right abdominal wall. There is anasarca present. PELVIS: Bladder: Symmetric distention, no gross wall thickening. Reproductive Organs: Mildly enlarged prostate gland. Lymph Nodes: Within normal limits. Bones: Within normal limits for the patient's age. IMPRESSION: 1. Extensive metastatic disease is again seen with nodular pleural thickening in the right hemithorax , subcutaneous and abdominal nodules, hepatic masses, osseous lesions and abdominal and pelvic ascite s. 2. Anasarca. 3. Persistent large pleural effusion and pericardial effusion. 4. Large amount of stool in the rectal vault suspicious for impaction. 5. Findings were discussed with Nevin Trujillo at 10:57 a.m. on 06/21/2023. RADIATION DOSE DELIVERED: 545.86mGy.cm Total DLP DATA REPOSITORY: All CT scans at this facility are submitted to the National Radiology Data Registry (NRDR) Dose Index Registry (DIR) with the [employer] [place] [employer] (ACR). RADIATION OPTIMIZATION: All CT scans at this facility use at least one of these dose optimization te chniques: automated exposure control; mA and/or kV adjustment per patient size (includes targeted exa ms where dose is matched to clinical indication); or iterative reconstruction.
[2023-06-21] MEDS: Omnipaque 350 MG/ML 500 ML BTL-Imaging package IJ (10:16)
[2023-06-21] MEDS: Normal Saline - Diluent 50 ML VIAL IJ (10:17)
[2023-06-21 10:18] LABS: BE (Venous) 2 mmol/L (-2-3); HCO3 (Venous) 27 mmol/L (23-28); O2 Sat (Venous) 57 %; TCO2 (Venous) 26 mmol/L (24-29); pCO2 (Venous) 45 mmHg (41-51); pH (Venous) 7.38 (7.31-7.41); pO2 (Venous) 31 mmHg
[2023-06-21 10:20] LABS: Abs Immature Grans 0.03 10^3/uL (0.0-0.06); Absolute Basophil Count 0.03 10^3/uL (0.0-0.2); Absolute Eosinophil Count 0.01 10^3/uL (0.0-0.7); Absolute Lymphocyte Count 0.82 10^3/uL (1.2-3.4); Absolute Monocyte Count 0.84 10^3/uL (0.1-0.8); Absolute Neutrophil Count 8.59 10^3/uL (1.2-6.7); Basophils % 0.3; Eosinophils % 0.1; HCT 29.6 % (40.0-50.0); HGB 9.2 g/dL (13.5-17.5); Immature Grans % 0.3; Lymphocytes % 7.9; MCH 26.5 pg (27.0-33.0); MCHC 31.1 % (32.0-36.0); MCV 85 fL (80-95); MPV 10.9 fL (8.0-11.0); Monocytes % 8.1; Neutrophils % 83.3; Platelet Count 241 10^3/uL (130-400); RBC 3.47 10^6/uL (4.36-5.78); RDW 18.6 % (11.8-14.1); RDW-SD 57.2 fL; WBC 10.32 10^3/uL (4.4-10.8)
[2023-06-21 11:27] LABS: ALT 10 U/L (16-63); AST 9 U/L (15-37); Albumin 1.6 g/dL (3.4-5.0); Alkaline Phosphatase 77 U/L (46-116); Anion Gap 12.4 mmol/L (3-11); BUN 40 mg/dL (7-18); Bilirubin, Total 0.3 mg/dL (0.2-1.0); CO2 26.6 mmol/L (21.0-32.0); CREATININE 1.8 mg/dL (0.70-1.30); Calcium 8.5 mg/dL (8.5-10.1); Chloride 104 mmol/L (98-107); Estimated GFR 39.75 (mL/min/1.73m2); Glucose 89 mg/dL (74-106); Lipase 23 U/L (16-77); NT-proBNP 2238 pg/mL (<300); Potassium 4.1 mmol/L (3.5-5.1); Sodium 143 mmol/L (136-145); Total Protein 5.9 g/dL (6.4-8.2)
--- NOTE | 2023-06-21 12:34 | ED.GENADUL_ITS ---
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, Acute dehydration, Fecal impaction Primary Care Provider: Haleigh Aguirre ED Provider: Nevin Trujillo Home Meds and New Rx's Prescriptions: Continued acetaminophen 325 mg capsule 325 mg PO Q4H PRN metoprolol succinate 50 mg tablet extended release 24 hr 50 mg PO DAILY Qty: 90 3RF lorazepam 0.5 mg tablet 0.5 mg PO .1-2 tabs prior MRI PRN sennosides [senna] 8.6 mg tablet 17.2 mg PO DAILY loperamide [Imodium A-D] PO PRN Rx Instructions: as directed calcium 250 mg Tablet 250 mg PO BID furosemide 20 mg tablet 20 mg PO DAILY Qty: 10 0RF Discharge Instructions Instructions: Dehydration (ED), Anemia (ED) Additional Instructions: Take MiraLAX daily to prevent constipation, start this today You should be having between 32 and 40 ounces of water or fluids daily, this may include several boost, you should try to have at least 1200 yamilet a day Try to watch her sodium intake as much as possible You are dehydrated, recommend taking small frequent sips is much as possible for your current weakness will continue to worsen Please call palliative care if you have any concerns The plan is to follow-up with you next week after your oncology appointment, home health is also coming out, they cannot supply an exact date Please return immediately should you have new or worsening complaints Referrals: Haleigh Aguirre, RESERVOIR ENGINEER [Primary Care Provider] - Discharge Data Discharge Date/Time-TO BE ENTERED AT DEPARTURE: 06/21/23 12:52 Medical Decision Making 72-year-old male with cancer, last chemotherapy 3 weeks prior to arrival Cachectic appearing pale, pleasant 72-year-old gentleman, emaciated, tenderness in suprapubic region, lungs with diminished air intake, mild increased work of breathing, moist mucous membranes, alert and oriented x4, cranial nerves II through XII intact, strength and sensation intact all 4 extremities, mild's suprapubic tenderness without rebound or guarding, no CVA tenderness Patient's labs when compared to discharge labs from yesterday do not show acute change, his anemia has improved, he does have known chronic kidney disease, his chest x-ray shows persistent changes consistent with likely cancer history and CT abdomen and pelvis shows anasarca, no significant acute abnormality, volume overload, effusions, I did talk about performing echocardiogram today, however he did not have this capacity We talked about readmitting patient for continued diuresis, he adamantly declines, patient would like to be discharged home, he is ambulatory now with steady gait, he is very slow with ambulation, he does have a walker at home and feels comfortable with this He is fully alert and oriented All discussions were had in presence of patient's brother I spoke with palliative care as they were supposed to go out next Monday for assessment and plan fortunately her unable to go earlier, they will also let home health know that patient would like earlier services We talked about hospice transition as it appears the patient may be headed in this direction but he prefers to wait until his appointment on Monday to speak with the oncologist I think he would benefit from admission, however he is safe with ambulation and does assure me that he will increase his with hydration and have several beers daily, we talked about 40 mL liquid limits and trying to eat at least 1200 yamilet a day which patient states will be hard for him Patient was discharged home with his brother at his request and will return earlier should he have new or worsening complaints, palliative care has been made aware of his departure HPI General Date/Time Provider Initiated Documentation: 06/21/23 09:32 . HPI Narrative: [id number] gentleman with history of lung cancer with metastases, CHF with recent admission and discharged yesterday presents with reports of weakness, abdominal pain, constipation. He states he was recently started on diuretics for CHF, he also met with palliative care and last chemotherapy was approximately 3 weeks ago. He states that he was unable to walk this morning secondary to generalized weakness which is why he presents. He also has some abdominal discomfort. He states he is not able to tolerate chemotherapy anymore is hoping to discontinue this would like to speak with his oncologist on Monday He denies any nausea or vomiting. Denies any fever or chills. States is taking all his meds as prescribed. He is not having worsened shortness of breath, he states that this has been persistent for the past several months. He does report that he left the hospital slightly earlier than anticipated at his request. He wishes to be home. Related Data Home Medications Medication Instructions Recorded Confirmed acetaminophen 325 mg capsule 325 mg PO Q4H PRN 04/20/21 06/21/23 metoprolol succinate 50 mg 50 mg PO DAILY #90 tabs 11/14/22 06/21/23 tablet,extended release 24 hr lorazepam 0.5 mg tablet 0.5 mg PO .1-2 tabs prior MRI PRN 12/23/22 06/21/23 sennosides 8.6 mg tablet (senna) 17.2 mg PO DAILY conctipation 12/23/22 06/21/23 loperamide [Imodium A-D] PO PRN 05/31/23 calcium 250 mg tablet 250 mg PO BID 06/19/23 06/21/23 furosemide 20 mg tablet 20 mg PO DAILY #10 tabs 06/20/23 06/21/23 Previous Rx's Medication Instructions Recorded metoprolol succinate 50 mg 50 mg PO DAILY #90 tabs 11/14/22 tablet,extended release 24 hr furosemide 20 mg tablet 20 mg PO DAILY #10 tabs 06/20/23 Allergies Allergy/AdvReac Type Severity Reaction Status Date / Time No Known Allergies Allergy Verified 06/19/23 17:00 General Stated Complaint: SOB AILYN: 3 PFSH All Active Problems (Updated 06/21/23 @ 12:33 by RANDAL Hodge) Acute dehydration (Acute) Fecal impaction (Acute) Advance care planning (Acute) Palliative care encounter (Acute) Dysphagia (Acute) Hypoalbuminemia (Acute) CKD (chronic kidney disease) stage 3, GFR 30-59 ml/min (Chronic) 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 (Chronic) Ambulatory dysfunction (Acute) Bilateral lower extremity edema (Acute) Bilateral pleural effusion (Acute) Acute CHF (Acute) Bilateral lung cancer (Acute) Anemia (Chronic) Acute pericardial effusion (Acute) Pleural effusion (Acute) Anemia (Chronic ~04/2023) 05/24/23 [facility] Hem/Onc Macular degeneration (senile) of retina (Acute) Poliomyelitis (Acute) at 5 years of age Encounter to establish care (Acute) Elevated blood pressure reading in office with diagnosis of hypertension (Acute) HTN (hypertension) with goal to be determined (Acute) IFG (impaired fasting glucose) (Acute) Colonoscopy refused (Acute) Failure to attend screening for abdominal aortic aneurysm (AAA) (Acute) Hyponatremia (Acute) Hyperkalemia (Acute) Pre-op evaluation (Acute) Abnormal blood chemistry (Acute) Hyponatremia (Acute) Screening for prostate cancer (Acute) Elevated PSA (Acute) Hyperkalemia (Acute) Hypertension (Chronic) Nicotine dependence, cigarettes, uncomplicated (Acute) Pulmonary nodule (Acute) Adenopathy, hilar (Acute) [place] [place] Mediastinal adenopathy (Acute) [place] [place] S/P bronchoscopy (Acute) 01/25/22 [place] [place]. Successful flexible bronchoscopy and EBUS-TBNA (5 sites) Brady Toure MD Secondary malignant neoplasm of bone (Acute) 02[place]10[place] [place]; Paul Law MD Anemia due to antineoplastic chemotherapy (Acute ~04/2022) 05/02/22 [facility] Hem/Onc Abnormal blood level of magnesium (Acute) 05/02/22 [facility] Hem/Onc - started on magnesium Elevated serum creatinine (Acute ~09/2022) 10/17/22 [facility] Hem/Onc,pemetrex stopped. Pleural effusion, malignant (Acute) 01/03/23 Thoracic Recurrent pleural effusion on right (Acute) 01/03/23 Thoracic Surgery Medical History Abnormal chest CT Encounter for screening for lung cancer Smoker Surgical History History of bronchoscopy (~12/19/22) 12/19/22 01/05/23 Bronchoscopy and Thoracoscopy History of cataract surgery Family History Father Stroke Hypertension Mother Colon cancer high risk Cancer head and neck cancer, colon cancer Other Heart disease Social History Smoking/Tobacco Use Status: Current every day Tobacco Type: cigarettes Smoking packs per day: 0.25 Smoking cigarettes per day: 5.0 Years smoked: 50 Smoking pack-years: 12.50 Tobacco: How many years used: 50 Counseling given: provider counseling, support medications and patient declined Smoking risk assessment performed?: Yes Alcohol Intake: former Drug use: Never Substance use type: does not use Adopted: No Household members: none Housing: house Number of Children: 2 number of grandchildren: 5 Communication Needs: Corrective Lenses Do you need help understanding health information?: Rarely 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 Pets and animals: Yes Pets and animals: dog(s) What is your relationship status?: How often do you talk on the phone with friends or family?: three or more times per week How often do you get together with friends or relatives?: three or more times per week Panel score (0-1 are the most socially isolated patients): 2 What type of physical activity do you participate in: walking Duration: < 15 minutes/day Frequency: daily Seatbelt use: always Water heater temp set <120 deg: Yes Working smoke detector in home: Yes Fire extinguisher in home: Yes Carbon monox detector in home: Yes Firearms in home: Yes Firearms unloaded and locked: Yes Do you feel safe at home: Yes Do you feel safe in your relationship?: Yes Course Vital Signs Vital signs: Vital Signs Temperature 36.8 C 06/21/23 09:34 Pulse 76 06/21/23 09:34 Respiratory Rate 22 06/21/23 09:34 Blood Pressure 117/61 06/21/23 09:34 Pulse Oximetry 95 06/21/23 09:34 Temperature 36.8 C 06/21/23 09:34 Pulse 101 H 06/21/23 11:30 Pulse 99 H 06/21/23 11:15 Respiratory Rate 23 06/21/23 11:15 Respiratory Effort Short of Breath 06/21/23 10:16 Respiratory Depth Deep 06/21/23 10:16 Respiratory Pattern Normal 06/21/23 10:16 Blood Pressure 150/88 H 06/21/23 11:30 Blood Pressure Mean 101 06/21/23 11:30 Pulse Oximetry 95 06/21/23 11:15 Oxygen Delivery Method Room Air 06/21/23 09:34 Oxygen Flow Rate 0 06/21/23 09:34 Lab/Test Results Lab/Test Results: Laboratory Tests Range/Units 06/21/23 06/21/23 06/21/23 10:11 10:11 10:11 WBC (4.4-10.8) 10^3/uL 10.32 RBC (4.36-5.78) 10^6/uL 3.47 L Hgb (13.5-17.5) g/dL 9.2 L Hct (40.0-50.0) % 29.6 L MCV (80-95) fL 85 MCH (27.0-33.0) pg 26.5 L MCHC (32.0-36.0) % 31.1 L RDW (11.8-14.1) % 18.6 H Plt Count (130-400) 10^3/uL 241 MPV (8.0-11.0) fL 10.9 Immature Gran % 0.3 Neutrophils % 83.3 Lymphocytes % 7.9 Monocytes % 8.1 Eosinophils % 0.1 Basophils % 0.3 Nucleated RBC % (0.0-0.3) % 0.0 Absolute Neutrophils (1.2-6.7) 10^3/uL 8.59 H Absolute Lymphocytes (1.2-3.4) 10^3/uL 0.82 L Absolute Monocytes (0.1-0.8) 10^3/uL 0.84 H Absolute Eosinophils (0.0-0.7) 10^3/uL 0.01 Absolute Basophils (0.0-0.2) 10^3/uL 0.03 VBG pH (7.31-7.41) 7.38 VBG pCO2 (41-51) mmHg 45 VBG pO2 mmHg 31 VBG HCO3 (23-28) mmol/L 27 VBG Total CO2 (24-29) mmol/L 26 VBG O2 Saturation % 57 VBG Base Excess (-2-3) mmol/L 2 Sodium (136-145) mmol/L 143 Potassium (3.5-5.1) mmol/L 4.1 Chloride (98-107) mmol/L 104 Carbon Dioxide (21.0-32.0) mmol/L 26.6 Anion Gap (3-11) mmol/L 12.4 H BUN (7-18) mg/dL 40 H Creatinine (0.70-1.30) mg/dL 1.8 H Est GFR (CKD-EPI 2020) (mL/min/1.73m2) 39.75 Glucose (74-106) mg/dL 89 Calcium (8.5-10.1) mg/dL 8.5 Total Bilirubin (0.2-1.0) mg/dL 0.3 AST (15-37) U/L 9 L ALT (16-63) U/L 10 L Alkaline Phosphatase (46-116) U/L 77 NT-Pro-B Natriuret Pep (<300) pg/mL 2238 H Total Protein (6.4-8.2) g/dL 5.9 L Albumin (3.4-5.0) g/dL 1.6 L Lipase (16-77) U/L 23 Patient ABO/Rh Antibody Screen Range/Units 06/21/23 10:11 WBC (4.4-10.8) 10^3/uL RBC (4.36-5.78) 10^6/uL Hgb (13.5-17.5) g/dL Hct (40.0-50.0) % MCV (80-95) fL MCH (27.0-33.0) pg MCHC (32.0-36.0) % RDW (11.8-14.1) % Plt Count (130-400) 10^3/uL MPV (8.0-11.0) fL Immature Gran % Neutrophils % Lymphocytes % Monocytes % Eosinophils % Basophils % Nucleated RBC % (0.0-0.3) % Absolute Neutrophils (1.2-6.7) 10^3/uL Absolute Lymphocytes (1.2-3.4) 10^3/uL Absolute Monocytes (0.1-0.8) 10^3/uL Absolute Eosinophils (0.0-0.7) 10^3/uL Absolute Basophils (0.0-0.2) 10^3/uL VBG pH (7.31-7.41) VBG pCO2 (41-51) mmHg VBG pO2 mmHg VBG HCO3 (23-28) mmol/L VBG Total CO2 (24-29) mmol/L VBG O2 Saturation % VBG Base Excess (-2-3) mmol/L Sodium (136-145) mmol/L Potassium (3.5-5.1) mmol/L Chloride (98-107) mmol/L Carbon Dioxide (21.0-32.0) mmol/L Anion Gap (3-11) mmol/L BUN (7-18) mg/dL Creatinine (0.70-1.30) mg/dL Est GFR (CKD-EPI 2020) (mL/min/1.73m2) Glucose (74-106) mg/dL Calcium (8.5-10.1) mg/dL Total Bilirubin (0.2-1.0) mg/dL AST (15-37) U/L ALT (16-63) U/L Alkaline Phosphatase (46-116) U/L NT-Pro-B Natriuret Pep (<300) pg/mL Total Protein (6.4-8.2) g/dL Albumin (3.4-5.0) g/dL Lipase (16-77) U/L Patient ABO/Rh A Positive Antibody Screen NEGATIVE
--- NOTE | 2023-06-23 15:01 | NUR.NOTE ---
Accessed chart to determine orders for EKG and to determine whether or not one needs to be cancelled. Nursing Note:
== END 2023-06-21 12:52 | disposition home or self-care (01) ==
PROVIDERS: Emergency Provider Physician Assistant; PCP Nurse Practitioner
DX: N18.30 Chronic kidney disease, stage 3 unspecified (principal); D64.9 Anemia, unspecified; E86.0 Dehydration; J90 Pleural effusion, not elsewhere classified; I30.9 Acute pericarditis, unspecified; K56.41 Fecal impaction; C34.92 Malignant neoplasm of unspecified part of left bronchus or lung
CPT/HCPCS: 80053; 82805; 83690; 86850; 86900; 86901; 93005; 99285; 71046; 74177; 83880; 85025; 93010; 99284